=== PATIENT | male | born 1955 | race Two or more races ===

== ENCOUNTER 2017-12-15 10:10 | Inpatient (IN) | payer SELFPAY ==
[2017-12-15 11:56] VITALS: BMI 46.9
--- NOTE | 2017-12-15 14:00 | HP ---
COWS - Scale Resting Pulse: 1= [place] 81-100 Sweatin=Flushed/Facial Moisture Restless Observation: 3= Extraneous Movement Pupil Size: 2= Moderately Dilated Bone or Joint Aches: 2= Severe Diffuse Aches Runny Nose/ Eye Tearin= Runny Nose/Eyes GI Upset > 30mins: 3= Vomiting/Diarrhea Tremor Observation: 2= Slight Tremor Visible Yawning Observation: 2= >3x During Session Anxiety or Irritability: 2=Irritable/Anxious Goose Flesh Skin: 0=Smooth Skin COWS Score: 21 Admission ROS S - HPI Chief Complaint: I NEED HELP TO STOP USING HEROIN Allergies/Adverse Reactions: Allergies Allergy/AdvReac Type Severity Reaction Status Date / Time bee venom protein (honey bee) Allergy Severe Swelling Verified 12/15/17 13:59 penicillin G Allergy Severe Swelling Verified 12/15/17 13:59 History of Present Illness: THIS 62 YEARS OLD MALE WITH HEROIN DEPENDENCE,SEEKING DETOX,WITHDRAWAL SYMPTOM, LAST DETOX 2007 [facility] HYPERTENSION NON COMPLIANCE LAST MEDICATION 1 MONTH AGO MORBID OBESITY CHRONIC EDEMA BOTH LEGS WITH ULCERS FOR 1 MONTH SLEEP APNEA DEPRESSION,INSOMNIA LONGEST PERIOD OF SOBRIETY 15 YEARS Exam Limitations: No Limitations - Ebola screening Have you traveled outside of the country in the last 21 days: No (N) Have you had contact with anyone from an Ebola affected area: No Have you been sick,other than usual withdrawal symptoms: No Do you have a fever: No - Review of Systems Constitutional: Chills, Loss of Appetite, Malaise, Night Sweats, Changes in sleep, Weakness EENT: reports: Tearing, Nose Congestion Respiratory: reports: No Symptoms reported Cardiac: reports: Palpitations GI: reports: Diarrhea, Nausea, Vomiting, Abdominal cramping : reports: No Symptoms Reported Musculoskeletal: reports: Back Pain, Joint Pain, Muscle Pain, Joint Stiffness Integumentary: reports: Dryness Neuro: reports: Headache, Tremors Endocrine: reports: No Symptoms Reported Hematology: reports: No Symptoms Reported Psychiatric: reports: No Sypmtoms Reported, Judgement Intact, Mood/Affect Appropiate, Orientated x3, Anxious, Depressed Patient History - Patient Medical History Hx Anemia: No Hx Asthma: No Hx Chronic Obstructive Pulmonary Disease (COPD): No Hx Cancer: No Hx Cardiac Disorders: No Hx Congestive Heart Failure: No Hx Hypertension: Yes (NON COMPLIANCE) Hx Hypercholesterolemia: No Hx Pacemaker: No HX Cerebrovascular Accident: No Hx Seizures: No Hx Diabetes: No Hx Gastrointestinal Disorders: No Hx Liver Disease: Yes (HEPATITIS C) Hx Genitourinary Disorders: No Hx Sexually Transmitted Disorders: No Hx Renal Disease (ESRD): No Hx Thyroid Disease: No Hx Human Immunodeficiency Virus (HIV): No (LAST 2017 NEGATIVE) Hx Hepatitis C: Yes Hx Depression: No Hx Suicide Attempt: No Hx Bipolar Disorder: No Hx Schizophrenia: No Other Medical History: ANXIETY,DEPRESSION,INSOMNIA,CHRONIC EDEMA BOTH LEGS WITH STASIS ULCER, - Patient Surgical History Past Surgical History: No Hx Neurologic Surgery: No Hx Cataract Extraction: No Hx Cardiac Surgery: No Hx Lung Surgery: No Hx Breast Surgery: No Hx Breast Biopsy: No Hx Abdominal Surgery: No Hx Appendectomy: No Hx Cholecystectomy: No Hx Genitourinary Surgery: No Hx Section: No Hx Orthopedic Surgery: No Anesthesia Reaction: No - PPD History Previous Implant?: Yes Documented Results: Negative w/o proof Implanted On Prior R Admission?: No PPD to be Administered?: Yes - Smoking Cessation Smoking history: Current every day smoker Have you smoked in the past 12 months: Yes Aproximately how many cigarettes per day: 10 Hx Chewing Tobacco Use: No Initiated information on smoking cessation: Yes 'Breaking Loose' booklet given: 12/15/17 - Substance & Tx. History Hx Alcohol Use: No Hx Substance Use: Yes Substance Use Type: Heroin Hx Substance Use Treatment: Yes ([address] [place] [address]) - Substances Abused Heroin Route: Inhalation Frequency: Daily Amount used: 15 Age of first use: 19 Date of Last Use: 12/15/17 Family Disease History - Family Disease History Family Disease History: Diabetes: Grandparent, Mother, Other: Father Admission Physical Exam S - Vital Signs Vital Signs: Vital Signs - 24 hr 12/15/17 11:55 Temperature 95.6 F L Pulse Rate 92 H Respiratory 20 Rate Blood Pressure 144/89 - Physical General Appearance: Yes: Moderate Distress, Tremorous, Irritable, Sweating, Anxious HEENTM: Yes: Normal ENT Inspection, Pharynx Normal Respiratory: Yes: Within Normal Limits, Lungs Clear, No Respiratory Distress Neck: Yes: Within Normal Limits, Supple, Trachea in good position Breast: Yes: Within Normal Limits Cardiology: Yes: Within Normal Limits, Regular Rhythm, Regular Rate, S1, S2 Abdominal: Yes: Within Normal Limits, Normal Bowel Sounds, Flat, Soft Genitourinary: Yes: Within Normal Limits Back: Yes: Muscle Spasm Extremities: Yes: Within Normal Limits, Normal Range of Motion, Tremors, Other ( EDEMA BOTH LEGS CHRONIC BOTH LES WITH MULTILE SUPERFICIAL ULCERS DEMATITIS) Neurological: Yes: can marker II-XII NML intact, Alert, Motor Strength 5/5, Normal Mood /Affect Integumentary: Yes: Dry Lymphatic: Yes: Within Normal Limits - Diagnostic (1) Opioid dependence with withdrawal Current Visit: Yes Status: Acute (2) Essential hypertension Current Visit: Yes Status: Acute (3) Chronic low back pain Current Visit: Yes Status: Acute (4) Stasis leg ulcer Current Visit: Yes Status: Acute Qualifiers: Laterality: bilateral Qualified Code(s): I83.019 - Varicose veins of right lower extremity with ulcer of unspecified site; I83.029 - Varicose veins of left lower extremity with ulcer of unspecified site; L97.929 - Non-pressure chronic ulcer of unspecified part of left lower leg with unspecified severity; L97.929 - Non-pressure chronic ulcer of unspecified part of left lower leg with unspecified severity; I83.029 - Varicose veins of left lower extremity with ulcer of unspecified site; I83.029 - Varicose veins of left lower extremity with ulcer of unspecified site; L97.919 - Non-pressure chronic ulcer of unspecified part of right lower leg with unspecified severity; L97.919 - Non- pressure chronic ulcer of unspecified part of right lower leg with unspecified severity; L97.919 - Non-pressure chronic ulcer of unspecified part of right lower leg with unspecified severity; L97.919 - Non-pressure chronic ulcer of unspecified part of right lower leg with unspecified severity; L97.929 - Non- pressure chronic ulcer of unspecified part of left lower leg with unspecified severity; L97.929 - Non-pressure chronic ulcer of unspecified part of left lower leg with unspecified severity (5) Obesity Current Visit: Yes Status: Chronic Qualifiers: Obesity type: due to excess calories Obesity classification: adult class 3 (BMI >= 40) Serious obesity comorbidity presence: without serious comorbidity Body mass index: BMI 45.0-49.9 Qualified Code(s): E66.01 - Morbid (severe) obesity due to excess calories; Z68.42 - Body mass index (BMI) 45.0-49.9, adult ; Z68.42 - Body mass index (BMI) 45.0-49.9, adult; Z68.42 - Body mass index (BMI ) 45.0-49.9, adult; Z68.42 - Body mass index (BMI) 45.0-49.9, adult (6) Sleep apnea Current Visit: Yes Status: Acute Qualifiers: Sleep apnea type: unspecified type Qualified Code(s): G47.30 - Sleep apnea , unspecified (7) Nicotine dependence Current Visit: Yes Status: Acute Qualifiers: Nicotine product type: cigarettes Substance use status: uncomplicated Qualified Code(s): F17.210 - Nicotine dependence, cigarettes, uncomplicated Cleared for Admission [facility] - Detox or Rehab [facility] Level of Care: Medically Managed Detox Regimen/Protocol: Methadone [facility] Breath Alcohol Content Breath Alcohol Content: 0 Urine Drug Screen - Results Drug Screen Negative: No Urine Drug Screen Results: OPI-Opiates, OXY-Oxycodone
[2017-12-15] MEDS ORDERED: MENTHOL/PHENOL 1 EACH UD MM PRN (14:23)
[2017-12-15] MEDS ORDERED: guaiFENesin/D-METHORPHAN HB 10 ML UNIT-DOSE CUPS PO PRN (14:23)
[2017-12-15] MEDS ORDERED: hydrOXYzine PAMOATE 50 MG CAPSULE (FP) PO PRN (14:23)
[2017-12-15] MEDS ORDERED: MAG HYDROX/AL HYDROX/SIMETH 30 ML UNIT-DOSE CUP PO PRN (14:23)
[2017-12-15] MEDS ORDERED: LOPERAMIDE HCL 2 MG CAPSULE PO PRN (14:23)
[2017-12-15] MEDS ORDERED: P-EPHED 60MG/TRIPROLIDI 2.5MG TABLET PO PRN (14:23)
[2017-12-15] MEDS ORDERED: IBUPROFEN 400 MG TABLET (FP) PO PRN (14:23)
[2017-12-15] MEDS ORDERED: MAGNESIUM CITRATE 300 ML BOTTLE PO PRN (14:23)
[2017-12-15] MEDS ORDERED: MAGNESIUM HYDROX 2400MG/30ML ORAL SUSPENSION 30 ML CUP PO PRN (14:23)
[2017-12-15] MEDS ORDERED: ACETAMINOPHEN 325 MG TABLET (FP) PO PRN (14:23)
[2017-12-15] MEDS ORDERED: NICOTINE POLACRILEX 2 MG GUM BUC PRN (14:23)
[2017-12-15] MEDS ORDERED: PATIENT'S OWN MEDICATION (NON-FORMULARY) (Amlodipine/Atorvastatin [Amlodipine-Atorvast 10- PO SCH (14:30)
[2017-12-15] MEDS ORDERED: METHADONE HCL 10 MG TABLET (FOR DETOX USE ONLY) PO ONE ×2 (15:20→23:00)
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
[2017-12-15] MEDS: HYDROCHLOROTHIAZIDE 25 MG TABLET (FP) PO SCH (16:14)
[2017-12-15] MEDS: amLODIPine BESYLATE 10 MG TABLET (FP) PO SCH (16:19)
[2017-12-15] MEDS: NICOTINE 21 MG/24 HOURS TOPICAL PATCH TD SCH (16:19)
[2017-12-15 20:14] LABS: URINE APPEARANCE CLEAR; URINE BLOOD 1+ (NEGATIVE); URINE COLOR AMBER; URINE GLUCOSE (UA) NEGATIVE (NEGATIVE); URINE KETONE NEGATIVE (NEGATIVE); URINE LEUK ESTERASE NEGATIVE (NEGATIVE); URINE NITRITE NEGATIVE (NEGATIVE); URINE UROBILINOGEN 4.0 E.U/dl mg/dL (0.2-1.0)
[2017-12-15 20:15] LABS: URINE PROTEIN 3+ (NEGATIVE)
[2017-12-15 21:02] LABS: EPI CELLS RARE /HPF (FEW); GRANULAR CASTS 1 /lpf; URINE BACTERIA RARE /hpf (NONE SEEN); URINE HYALINE CAST 11 /lpf; URINE MUCUS MANY
[2017-12-15] MEDS: MELATONIN 5 MG TABLETS PO PRN (22:45)
[2017-12-15] MEDS: THIAMINE HCL 100 MG TABLET (FP) PO SCH (22:45)
[2017-12-15] MEDS: SILVER SULFADIAZINE 1% TOP CREAM 50 GM JAR TP SCH (22:46)
[2017-12-15] MEDS: diazePAM 5 MG TABLET PO PRN (22:46)
[2017-12-15] MEDS: ATORVASTATIN CA 10 MG TABLET (FP) PO SCH (22:46)
[2017-12-16] MEDS: diazePAM 5 MG TABLET PO PRN ×2 (07:00→22:54)
[2017-12-16] MEDS ORDERED: METHADONE HCL 10 MG TABLET (FOR DETOX USE ONLY) PO ONE (10:00)
[2017-12-16 10:33] LABS: HEMATOCRIT 42.5 % (35.4-49); HEMOGLOBIN 13.9 GM/dL (11.7-16.9); MCH 26.8 pg (25.7-33.7); MCHC 32.7 g/dl (32.0-35.9); MEAN CELL VOLUME 82.1 fl (80-96); MEAN PLT VOLUME 9.1 fl (7.5-11.1); RBC 5.17 M/mm3 (4.00-5.60); RDW 17.1 % (11.9-15.9); WHITE BLOOD COUNT 4.9 K/mm3 (4.0-10.0)
[2017-12-16 10:44] LABS: CHLORIDE 106 mmol/L (98-107); POTASSIUM 4.6 mmol/L (3.5-5.1); SODIUM 140 mmol/L (136-145)
[2017-12-16 10:51] LABS: ALBUMIN 3.7 g/dl (3.4-5.0); ALK PHOS 79 U/L (45-117); ANION GAP 6 (8-16); BILIRUBIN,TOTAL 1.5 mg/dL (0.2-1.0); BLOOD UREA NITROGEN 16 mg/dL (7-18); CO2 28 mmol/L (21-32); CREATININE 1.4 mg/dL (0.7-1.3); GLUCOSE,RANDOM 91 mg/dL (74-106); SGOT/AST 34 U/L (15-37); SGPT/ALT 18 U/L (12-78); TOT PROT 7.1 g/dl (6.4-8.2)
[2017-12-16] MEDS: NICOTINE 21 MG/24 HOURS TOPICAL PATCH TD SCH (11:35)
[2017-12-16] MEDS: SILVER SULFADIAZINE 1% TOP CREAM 50 GM JAR TP SCH ×2 (11:35→22:52)
[2017-12-16] MEDS: HYDROCHLOROTHIAZIDE 25 MG TABLET (FP) PO SCH (11:35)
[2017-12-16] MEDS: amLODIPine BESYLATE 10 MG TABLET (FP) PO SCH (11:35)
[2017-12-16] MEDS: PRENATAL VITAMINS W/ FOLIC ACID TABLET (FP) PO SCH (11:35)
[2017-12-16 13:44] LABS: PLATELET COUNT 110 K/MM3 (134-434)
[2017-12-16 14:13] LABS: SICKLE CELL SCREEN NEGATIVE (NEGATIVE)
--- NOTE | 2017-12-16 15:43 | PN ---
S COWS - Scale Resting Pulse: 1= [place] 81-100 Sweatin= Chills/Flushing Restless Observation: 0= Sits Still Pupil Size: 0= Normal to Room Light Bone or Joint Aches: 4=Acute Joint/Muscle Pain Runny Nose/ Eye Tearin= None GI Upset > 30mins: 1= Stomach Cramp Tremor Observation of Outstretched Hands: 0= None Yawning Observation: 2= >3x During Session Anxiety or Irritability: 2=Irritable/Anxious Goose Flesh Skin: 3=Piloerection COWS Score: 14 S Progress Note (SOAP) Subjective: Stomach Cramping, Fatigue, Body Aches. Objective: PATIENT A & O X 3. NO ACUTE DISTRESS. PATIENT DENIES CHEST PAIN. 12/16/17 15:40 Vital Signs Temperature 95.8 F L 12/16/17 14:58 Pulse Rate 82 12/16/17 14:58 Respiratory Rate 20 12/16/17 14:58 Blood Pressure 136/84 12/16/17 14:58 O2 Sat by Pulse Oximetry (%) Laboratory Tests 12/15/17 12/16/17 12/16/17 18:40 06:20 06:20 WBC 4.9 RBC 5.17 Hgb 13.9 Hct 42.5 MCV 82.1 MCH 26.8 MCHC 32.7 RDW 17.1 H Plt Count 110 L MPV 9.1 Manual Slide Review No clumping seen Platelet Comment Sl.dec Sickle Cell Screen Negative Sodium 140 Potassium 4.6 Chloride 106 Carbon Dioxide 28 Anion Gap 6 L BUN 16 Creatinine 1.4 H Creat Clearance w eGFR 51.18 Random Glucose 91 Calcium 9.0 Total Bilirubin 1.5 H AST 34 ALT 18 Alkaline Phosphatase 79 Total Protein 7.1 Albumin 3.7 Urine Color Mar Urine Appearance Clear Urine pH 5.0 Ur Specific [place] 1.028 Urine Protein 3+ H Urine Glucose (UA) Negative Urine Ketones Negative Urine Blood 1+ H Urine Nitrite Negative Urine Bilirubin 2.0 Urine Urobilinogen 4.0 e.u/dl Ur Leukocyte Esterase Negative Urine WBC (Auto) 2 Urine RBC (Auto) 12 Ur Epithelial Cells Rare Urine Bacteria Rare Hyaline Casts 11 Granular Casts 1 Urine Mucus Many RPR Titer 12/16/17 06:20 WBC RBC Hgb Hct MCV MCH MCHC RDW Plt Count MPV Manual Slide Review Platelet Comment Sickle Cell Screen Sodium Potassium Chloride Carbon Dioxide Anion Gap BUN Creatinine Creat Clearance w eGFR Random Glucose Calcium Total Bilirubin AST ALT Alkaline Phosphatase Total Protein Albumin Urine Color Urine Appearance Urine pH Ur Specific [place] Urine Protein Urine Glucose (UA) Urine Ketones Urine Blood Urine Nitrite Urine Bilirubin Urine Urobilinogen Ur Leukocyte Esterase Urine WBC (Auto) Urine RBC (Auto) Ur Epithelial Cells Urine Bacteria Hyaline Casts Granular Casts Urine Mucus RPR Titer Nonreactive LABS NOTED. Assessment: 12/16/17 15:40 WITHDRAWAL SYMPTOMS. Plan: CONTINUE DETOX. D/C IBUPROFEN AND -MAGNESIUM-CONTAINING MEDS.
[2017-12-16] MEDS ORDERED: ONDANSETRON *ODT* 4 MG TABLET SL ONE (22:00)
[2017-12-16] MEDS: THIAMINE HCL 100 MG TABLET (FP) PO SCH (22:51)
[2017-12-16] MEDS: ATORVASTATIN CA 10 MG TABLET (FP) PO SCH (22:51)
[2017-12-16] MEDS: MELATONIN 5 MG TABLETS PO PRN (22:53)
[2017-12-17] MEDS: diazePAM 5 MG TABLET PO PRN ×2 (06:18→21:54)
--- NOTE | 2017-12-17 06:48 | PN ---
[facility] Progress Note Note: Patient complained of nausea. Denies vomiting at this time. Ondansetron 4mg subligual given
[2017-12-17] MEDS ORDERED: METHADONE HCL 5 MG TABLET (FOR DETOX USE ONLY) PO ONE (10:00)
[2017-12-17] MEDS: PRENATAL VITAMINS W/ FOLIC ACID TABLET (FP) PO SCH (10:50)
[2017-12-17] MEDS: SILVER SULFADIAZINE 1% TOP CREAM 50 GM JAR TP SCH ×2 (10:50→23:07)
[2017-12-17] MEDS: NICOTINE 21 MG/24 HOURS TOPICAL PATCH TD SCH (10:50)
[2017-12-17] MEDS: amLODIPine BESYLATE 10 MG TABLET (FP) PO SCH (10:50)
[2017-12-17] MEDS: HYDROCHLOROTHIAZIDE 25 MG TABLET (FP) PO SCH (10:50)
[2017-12-17] MEDS ORDERED: TRIMETHOBENZAMIDE HCL 200MG/2ML INJ IM PRN (10:56)
[2017-12-17] MEDS ORDERED: TRIMETHOBENZAMIDE HCL 200MG/2ML INJ IM ONE (10:56)
[2017-12-17] MEDS ORDERED: TRIMETHOBENZAMIDE HCL 300 MG CAPSULE PO PRN (10:57)
--- NOTE | 2017-12-17 11:05 | PN ---
S COWS - Scale Resting Pulse: 1= [place] 81-100 Sweatin= Chills/Flushing Restless Observation: 1= Difficult to Sit Still Pupil Size: 0= Normal to Room Light Bone or Joint Aches: 2= Severe Diffuse Aches Runny Nose/ Eye Tearin= Nasal Congestion GI Upset > 30mins: 2= Nausea/Diarrhea Tremor Observation of Outstretched Hands: 2= Slight Tremor Visible Yawning Observation: 1= 1-2x During Session Anxiety or Irritability: 2=Irritable/Anxious Goose Flesh Skin: 3=Piloerection COWS Score: 16 S Progress Note (SOAP) Subjective: nausea/vomiting sweats chills interrupted sleep Objective: 12/17/17 11:04 Vital Signs Temperature 95.4 F L 12/17/17 11:00 Pulse Rate 89 12/17/17 11:00 Respiratory Rate 20 12/17/17 11:00 Blood Pressure 156/93 12/17/17 11:00 O2 Sat by Pulse Oximetry (%) Laboratory Tests 12/15/17 12/16/17 12/16/17 18:40 06:20 06:20 WBC 4.9 RBC 5.17 Hgb 13.9 Hct 42.5 MCV 82.1 MCH 26.8 MCHC 32.7 RDW 17.1 H Plt Count 110 L MPV 9.1 Manual Slide Review No clumping seen Platelet Comment Sl.dec Sickle Cell Screen Negative Sodium 140 Potassium 4.6 Chloride 106 Carbon Dioxide 28 Anion Gap 6 L BUN 16 Creatinine 1.4 H Creat Clearance w eGFR 51.18 Random Glucose 91 Calcium 9.0 Total Bilirubin 1.5 H AST 34 ALT 18 Alkaline Phosphatase 79 Total Protein 7.1 Albumin 3.7 Urine Color Mar Urine Appearance Clear Urine pH 5.0 Ur Specific [place] 1.028 Urine Protein 3+ H Urine Glucose (UA) Negative Urine Ketones Negative Urine Blood 1+ H Urine Nitrite Negative Urine Bilirubin 2.0 Urine Urobilinogen 4.0 e.u/dl Ur Leukocyte Esterase Negative Urine WBC (Auto) 2 Urine RBC (Auto) 12 Ur Epithelial Cells Rare Urine Bacteria Rare Hyaline Casts 11 Granular Casts 1 Urine Mucus Many RPR Titer 12/16/17 06:20 WBC RBC Hgb Hct MCV MCH MCHC RDW Plt Count MPV Manual Slide Review Platelet Comment Sickle Cell Screen Sodium Potassium Chloride Carbon Dioxide Anion Gap BUN Creatinine Creat Clearance w eGFR Random Glucose Calcium Total Bilirubin AST ALT Alkaline Phosphatase Total Protein Albumin Urine Color Urine Appearance Urine pH Ur Specific [place] Urine Protein Urine Glucose (UA) Urine Ketones Urine Blood Urine Nitrite Urine Bilirubin Urine Urobilinogen Ur Leukocyte Esterase Urine WBC (Auto) Urine RBC (Auto) Ur Epithelial Cells Urine Bacteria Hyaline Casts Granular Casts Urine Mucus RPR Titer Nonreactive aaox3 ambulating no acute distress Assessment: 12/17/17 11:04 withdrawal sx Plan: continue detox increase fluids tigan IM/PO prn
[2017-12-17] MEDS: ATORVASTATIN CA 10 MG TABLET (FP) PO SCH (21:54)
[2017-12-17] MEDS: THIAMINE HCL 100 MG TABLET (FP) PO SCH (21:54)
[2017-12-17] MEDS ORDERED: amLODIPine BESYLATE 10 MG TABLET (FP) PO SCH (22:00)
[2017-12-17] MEDS: LISINOPRIL 5 MG TABLET (FP) PO SCH (22:59)
[2017-12-18] MEDS ORDERED: METHADONE HCL 5 MG TABLET (FOR DETOX USE ONLY) PO ONE (10:00)
[2017-12-18] MEDS: diazePAM 5 MG TABLET PO PRN (12:15)
[2017-12-18] MEDS: HYDROCHLOROTHIAZIDE 25 MG TABLET (FP) PO SCH (12:25)
[2017-12-18] MEDS: PRENATAL VITAMINS W/ FOLIC ACID TABLET (FP) PO SCH (12:28)
[2017-12-18] MEDS: NICOTINE 21 MG/24 HOURS TOPICAL PATCH TD SCH (12:32)
[2017-12-18] MEDS: SILVER SULFADIAZINE 1% TOP CREAM 50 GM JAR TP SCH ×2 (12:33→21:47)
--- NOTE | 2017-12-18 12:42 | EKG ---
Test Reason : Blood Pressure : / mmHG Vent. Rate : 080 BPM Atrial Rate : 080 BPM P-R Int : 144 ms QRS Dur : 084 ms QT Int : 400 ms P-R-T Axes : 040 -16 -16 degrees QTc Int : 461 ms NORMAL SINUS RHYTHM NONSPECIFIC T WAVE ABNORMALITY PROLONGED QT ABNORMAL ECG WHEN COMPARED WITH ECG OF 15-DEC-2017 17:03, NO SIGNIFICANT CHANGE WAS FOUND Confirmed by DOMI PADILLA MD ([id number]) on 12/18/2017 12:42:01 PM Referred By: Confirmed By:DOMI PADILLA MD
--- NOTE | 2017-12-18 12:44 | EKG ---
Test Reason : Blood Pressure : / mmHG Vent. Rate : 085 BPM Atrial Rate : 085 BPM P-R Int : 142 ms QRS Dur : 086 ms QT Int : 372 ms P-R-T Axes : 040 011 217 degrees QTc Int : 442 ms NORMAL SINUS RHYTHM NONSPECIFIC T WAVE ABNORMALITY ABNORMAL ECG NO PREVIOUS ECGS AVAILABLE Confirmed by DOMI PADILLA MD ([id number]) on 12/18/2017 12:43:28 PM Referred By: Confirmed By:DOMI PADILLA MD
--- NOTE | 2017-12-18 13:34 | PN ---
[facility] Progress Note (SOAP) Subjective: Fatigue, Body Aches, Interrupted Sleep, Vomiting. Objective: PATIENT A & O X 3. NO ACUTE DISTRESS. 12/18/17 13:29 Vital Signs Temperature 96.3 F L 12/18/17 09:24 Pulse Rate 91 H 12/18/17 09:24 Respiratory Rate 18 12/18/17 09:24 Blood Pressure 166/107 12/18/17 09:24 O2 Sat by Pulse Oximetry (%) Laboratory Tests 12/15/17 12/16/17 12/16/17 18:40 06:20 06:20 WBC 4.9 RBC 5.17 Hgb 13.9 Hct 42.5 MCV 82.1 MCH 26.8 MCHC 32.7 RDW 17.1 H Plt Count 110 L MPV 9.1 Manual Slide Review No clumping seen Platelet Comment Sl.dec Sickle Cell Screen Negative Sodium 140 Potassium 4.6 Chloride 106 Carbon Dioxide 28 Anion Gap 6 L BUN 16 Creatinine 1.4 H Creat Clearance w eGFR 51.18 Random Glucose 91 Calcium 9.0 Total Bilirubin 1.5 H AST 34 ALT 18 Alkaline Phosphatase 79 Total Protein 7.1 Albumin 3.7 Urine Color Mar Urine Appearance Clear Urine pH 5.0 Ur Specific [place] 1.028 Urine Protein 3+ H Urine Glucose (UA) Negative Urine Ketones Negative Urine Blood 1+ H Urine Nitrite Negative Urine Bilirubin 2.0 Urine Urobilinogen 4.0 e.u/dl Ur Leukocyte Esterase Negative Urine WBC (Auto) 2 Urine RBC (Auto) 12 Ur Epithelial Cells Rare Urine Bacteria Rare Hyaline Casts 11 Granular Casts 1 Urine Mucus Many RPR Titer HIV 1&2 Antibody Screen HIV P24 Antigen 12/16/17 12/17/17 06:20 08:00 WBC RBC Hgb Hct MCV MCH MCHC RDW Plt Count MPV Manual Slide Review Platelet Comment Sickle Cell Screen Sodium Potassium Chloride Carbon Dioxide Anion Gap BUN Creatinine Creat Clearance w eGFR Random Glucose Calcium Total Bilirubin AST ALT Alkaline Phosphatase Total Protein Albumin Urine Color Urine Appearance Urine pH Ur Specific [place] Urine Protein Urine Glucose (UA) Urine Ketones Urine Blood Urine Nitrite Urine Bilirubin Urine Urobilinogen Ur Leukocyte Esterase Urine WBC (Auto) Urine RBC (Auto) Ur Epithelial Cells Urine Bacteria Hyaline Casts Granular Casts Urine Mucus RPR Titer Nonreactive HIV 1&2 Antibody Screen Negative HIV P24 Antigen Negative LABS NOTED. Assessment: 04/16/18 13:30 WITHDRAWAL SYMPTOMS. Plan: CONTINUE DETOX. AMLODIPINE, 10 MG PO DAILY FOR ELEVATED BP (PATIENT WAS PRESCRIBED PRIOR TO DETOX ADMISSION).
[2017-12-18] MEDS: amLODIPine BESYLATE 10 MG TABLET (FP) PO SCH (15:01)
--- NOTE | 2017-12-18 18:28 | PN ---
S Progress Note Note: Vital Signs Temperature 97 F L 12/18/17 14:01 Pulse Rate 90 12/18/17 14:01 Respiratory Rate 20 12/18/17 14:01 Blood Pressure 166/103 12/18/17 14:01 O2 Sat by Pulse Oximetry (%) Patient with symptomatic elevated BP one time dose clonidine 0.1mg STAT Increase fluids Continue to monitor
[2017-12-18] MEDS ORDERED: cloNIDine HCL 0.1 MG TABLET PO ONE (19:00)
[2017-12-18] MEDS: LISINOPRIL 5 MG TABLET (FP) PO SCH (22:25)
[2017-12-18] MEDS: THIAMINE HCL 100 MG TABLET (FP) PO SCH (22:25)
[2017-12-18] MEDS: ATORVASTATIN CA 10 MG TABLET (FP) PO SCH (22:25)
[2017-12-18] MEDS: MELATONIN 5 MG TABLETS PO PRN (22:29)
[2017-12-19] MEDS ORDERED: ONDANSETRON *ODT* 4 MG TABLET SL PRN (06:42)
[2017-12-19] MEDS ORDERED: METHADONE HCL 10 MG TABLET (FOR DETOX USE ONLY) PO ONE (10:00)
[2017-12-19] MEDS: NICOTINE 21 MG/24 HOURS TOPICAL PATCH TD SCH (10:37)
[2017-12-19] MEDS: SILVER SULFADIAZINE 1% TOP CREAM 50 GM JAR TP SCH ×2 (10:37→23:17)
[2017-12-19] MEDS: amLODIPine BESYLATE 10 MG TABLET (FP) PO SCH (10:38)
[2017-12-19] MEDS: PRENATAL VITAMINS W/ FOLIC ACID TABLET (FP) PO SCH (10:38)
[2017-12-19] MEDS: HYDROCHLOROTHIAZIDE 25 MG TABLET (FP) PO SCH (10:38)
--- NOTE | 2017-12-19 14:04 | PN ---
[facility] Progress Note (SOAP) Subjective: Fatigue, Vomiting, Stomach Cramping, Body Aches. Objective: PATIENT A & O X 3. NO ACUTE DISTRESS. 12/19/17 13:58 Vital Signs Temperature 96.3 F L 12/19/17 09:06 Pulse Rate 86 12/19/17 09:06 Respiratory Rate 18 12/19/17 09:06 Blood Pressure 156/101 12/19/17 09:06 O2 Sat by Pulse Oximetry (%) Laboratory Tests 12/15/17 12/16/17 12/16/17 18:40 06:20 06:20 WBC 4.9 RBC 5.17 Hgb 13.9 Hct 42.5 MCV 82.1 MCH 26.8 MCHC 32.7 RDW 17.1 H Plt Count 110 L MPV 9.1 Manual Slide Review No clumping seen Platelet Comment Sl.dec Sickle Cell Screen Negative Sodium 140 Potassium 4.6 Chloride 106 Carbon Dioxide 28 Anion Gap 6 L BUN 16 Creatinine 1.4 H Creat Clearance w eGFR 51.18 Random Glucose 91 Calcium 9.0 Total Bilirubin 1.5 H AST 34 ALT 18 Alkaline Phosphatase 79 Total Protein 7.1 Albumin 3.7 Urine Color Mar Urine Appearance Clear Urine pH 5.0 Ur Specific [place] 1.028 Urine Protein 3+ H Urine Glucose (UA) Negative Urine Ketones Negative Urine Blood 1+ H Urine Nitrite Negative Urine Bilirubin 2.0 Urine Urobilinogen 4.0 e.u/dl Ur Leukocyte Esterase Negative Urine WBC (Auto) 2 Urine RBC (Auto) 12 Ur Epithelial Cells Rare Urine Bacteria Rare Hyaline Casts 11 Granular Casts 1 Urine Mucus Many RPR Titer HIV 1&2 Antibody Screen HIV P24 Antigen 12/16/17 12/17/17 06:20 08:00 WBC RBC Hgb Hct MCV MCH MCHC RDW Plt Count MPV Manual Slide Review Platelet Comment Sickle Cell Screen Sodium Potassium Chloride Carbon Dioxide Anion Gap BUN Creatinine Creat Clearance w eGFR Random Glucose Calcium Total Bilirubin AST ALT Alkaline Phosphatase Total Protein Albumin Urine Color Urine Appearance Urine pH Ur Specific [place] Urine Protein Urine Glucose (UA) Urine Ketones Urine Blood Urine Nitrite Urine Bilirubin Urine Urobilinogen Ur Leukocyte Esterase Urine WBC (Auto) Urine RBC (Auto) Ur Epithelial Cells Urine Bacteria Hyaline Casts Granular Casts Urine Mucus RPR Titer Nonreactive HIV 1&2 Antibody Screen Negative HIV P24 Antigen Negative LABS NOTED. Assessment: 12/19/17 13:59 WITHDRAWAL SYMPTOMS. Plan: CONTINUE DETOX. CLONIDINE, 0.2 MG PO X 1 FOR DETOX SYMPTOMS AND FOR ELEVATED BP. PATIENT HAS DISPLAYED VERY LITTLE AMBULATION DURING THIS DETOX ADMISSION. PATIENT ENCOURAGED TO ATTEMPT AMBULATION TOLERATED HE PREPARES FOR DISCHARGE TOMORROW. PATIENT ALSO ADVISED TO FOLLOW-UP WITH [employer] DR. WEINSTEIN ([place], [place] AFTER DISCHARGE FROM DETOX FOR MEDICAL ASSESSMENT, FOR WOUNDS ON FEET, FOR HISTORY OF HYPERTENSION, AND FOR ABNORMAL RENAL VALUES DRAWN WHILE ADMITTED FOR DETOX.
[2017-12-19] MEDS ORDERED: cloNIDine HCL 0.1 MG TABLET PO ONE (15:45)
[2017-12-19] MEDS: MELATONIN 5 MG TABLETS PO PRN (23:12)
[2017-12-19] MEDS: ATORVASTATIN CA 10 MG TABLET (FP) PO SCH (23:12)
[2017-12-19] MEDS: THIAMINE HCL 100 MG TABLET (FP) PO SCH (23:12)
[2017-12-19] MEDS: LISINOPRIL 5 MG TABLET (FP) PO SCH (23:12)
[2017-12-20] MEDS ORDERED: METHADONE HCL 5 MG TABLET (FOR DETOX USE ONLY) PO ONE (06:00)
[2017-12-20 09:05] VITALS: BP 125/78; PULSE 78; TEMP 96.3
--- NOTE | 2017-12-20 14:55 | PN ---
[facility] Progress Note (SOAP) Subjective: Patient reports that he feels well overall. Objective: PATIENT A & O X 3, OBSERVED AMBULATING ON UNIT. NO ACUTE DISTRESS. 12/20/17 15:01 Vital Signs Temperature 96.3 F L 12/20/17 09:05 Pulse Rate 78 12/20/17 09:05 Respiratory Rate 18 12/20/17 09:05 Blood Pressure 125/78 12/20/17 09:05 O2 Sat by Pulse Oximetry (%) Laboratory Tests 12/15/17 12/16/17 12/16/17 18:40 06:20 06:20 WBC 4.9 RBC 5.17 Hgb 13.9 Hct 42.5 MCV 82.1 MCH 26.8 MCHC 32.7 RDW 17.1 H Plt Count 110 L MPV 9.1 Manual Slide Review No clumping seen Platelet Comment Sl.dec Sickle Cell Screen Negative Sodium 140 Potassium 4.6 Chloride 106 Carbon Dioxide 28 Anion Gap 6 L BUN 16 Creatinine 1.4 H Creat Clearance w eGFR 51.18 Random Glucose 91 Calcium 9.0 Total Bilirubin 1.5 H AST 34 ALT 18 Alkaline Phosphatase 79 Total Protein 7.1 Albumin 3.7 Urine Color Mar Urine Appearance Clear Urine pH 5.0 Ur Specific [place] 1.028 Urine Protein 3+ H Urine Glucose (UA) Negative Urine Ketones Negative Urine Blood 1+ H Urine Nitrite Negative Urine Bilirubin 2.0 Urine Urobilinogen 4.0 e.u/dl Ur Leukocyte Esterase Negative Urine WBC (Auto) 2 Urine RBC (Auto) 12 Ur Epithelial Cells Rare Urine Bacteria Rare Hyaline Casts 11 Granular Casts 1 Urine Mucus Many RPR Titer HIV 1&2 Antibody Screen HIV P24 Antigen 12/16/17 12/17/17 06:20 08:00 WBC RBC Hgb Hct MCV MCH MCHC RDW Plt Count MPV Manual Slide Review Platelet Comment Sickle Cell Screen Sodium Potassium Chloride Carbon Dioxide Anion Gap BUN Creatinine Creat Clearance w eGFR Random Glucose Calcium Total Bilirubin AST ALT Alkaline Phosphatase Total Protein Albumin Urine Color Urine Appearance Urine pH Ur Specific [place] Urine Protein Urine Glucose (UA) Urine Ketones Urine Blood Urine Nitrite Urine Bilirubin Urine Urobilinogen Ur Leukocyte Esterase Urine WBC (Auto) Urine RBC (Auto) Ur Epithelial Cells Urine Bacteria Hyaline Casts Granular Casts Urine Mucus RPR Titer Nonreactive HIV 1&2 Antibody Screen Negative HIV P24 Antigen Negative LABS NOTED. Assessment: 12/20/17 15:02 COMPLETION OF DETOX REGIMEN. Plan: PATIENT SCHEDULED FOR DISCHARGE FROM DETOX UNIT TODAY.
--- NOTE | 2017-12-20 15:07 | DS ---
[facility] Detox Discharge Summary Admission Date: 12/15/17 Discharge Date: 12/20/17 - History Present History: Opioid Dependence Additional Comments: PATIENT GOING HOME TO RETURN TO WORK. PATIENT ADVISED TO CONSIDER LOCAL 12-STEP / NA OUTPATIENT SUPPORT GROUPS FOR AFTERCARE. PATIENT ALSO ADVISED TO FOLLOW-UP WITH STAFF WRITER DR. WEINSTEIN ([place] AFTER DISCHARGE FROM DETOX FOR GENERAL MEDICAL ASSESSMENT, FOR HISTORY OF HTN, FOR STASIS ULCERS AFFECTING LEGS AND FEET, AND FOR ABNORMAL RENAL LAB VALUES WHILE ADMITTED FOR DETOX. PATIENT WAS DISCHARGED FROM DETOX UNIT IN STABLE MEDICAL CONDITION. Pertinent Past History: Nicotine Dependence, HTN, Stasis Ulcers of Legs/Feet, Hep C, Chronic Low Back Pain, Sleep Apnea, Depression, Insomnia, Anxiety. - Physical Exam Results Vital Signs: Vital Signs Temperature 96.3 F L 12/20/17 09:05 Pulse Rate 78 12/20/17 09:05 Respiratory Rate 18 12/20/17 09:05 Blood Pressure 125/78 12/20/17 09:05 O2 Sat by Pulse Oximetry (%) Pertinent Admission Physical Exam Findings: WITHDRAWAL SYMPTOMS. Laboratory Tests 12/15/17 12/16/17 12/16/17 18:40 06:20 06:20 WBC 4.9 RBC 5.17 Hgb 13.9 Hct 42.5 MCV 82.1 MCH 26.8 MCHC 32.7 RDW 17.1 H Plt Count 110 L MPV 9.1 Manual Slide Review No clumping seen Platelet Comment Sl.dec Sickle Cell Screen Negative Sodium 140 Potassium 4.6 Chloride 106 Carbon Dioxide 28 Anion Gap 6 L BUN 16 Creatinine 1.4 H Creat Clearance w eGFR 51.18 Random Glucose 91 Calcium 9.0 Total Bilirubin 1.5 H AST 34 ALT 18 Alkaline Phosphatase 79 Total Protein 7.1 Albumin 3.7 Urine Color Mar Urine Appearance Clear Urine pH 5.0 Ur Specific [place] 1.028 Urine Protein 3+ H Urine Glucose (UA) Negative Urine Ketones Negative Urine Blood 1+ H Urine Nitrite Negative Urine Bilirubin 2.0 Urine Urobilinogen 4.0 e.u/dl Ur Leukocyte Esterase Negative Urine WBC (Auto) 2 Urine RBC (Auto) 12 Ur Epithelial Cells Rare Urine Bacteria Rare Hyaline Casts 11 Granular Casts 1 Urine Mucus Many RPR Titer HIV 1&2 Antibody Screen HIV P24 Antigen 12/16/17 12/17/17 06:20 08:00 WBC RBC Hgb Hct MCV MCH MCHC RDW Plt Count MPV Manual Slide Review Platelet Comment Sickle Cell Screen Sodium Potassium Chloride Carbon Dioxide Anion Gap BUN Creatinine Creat Clearance w eGFR Random Glucose Calcium Total Bilirubin AST ALT Alkaline Phosphatase Total Protein Albumin Urine Color Urine Appearance Urine pH Ur Specific [place] Urine Protein Urine Glucose (UA) Urine Ketones Urine Blood Urine Nitrite Urine Bilirubin Urine Urobilinogen Ur Leukocyte Esterase Urine WBC (Auto) Urine RBC (Auto) Ur Epithelial Cells Urine Bacteria Hyaline Casts Granular Casts Urine Mucus RPR Titer Nonreactive HIV 1&2 Antibody Screen Negative HIV P24 Antigen Negative LABS NOTED. - Treatment Hospital Course: Detox Protocol Followed, Detoxed Safely, Responded well, Discharged Condition Good Patient has Accepted a Rehab Referral to: PT GOING HOME, ADVISED TO CONSIDER LOCAL 12-STEP/NA OT SUPPORT GROUPS. - Medication Discharge Medications: Ambulatory Orders Amlodipine/Atorvastatin [Amlodipine-Atorvast 10-10 mg] 10 mg PO DAILY 12/15/17 Amlodipine Besylate 10 mg PO DAILY 30 Days #30 tablet 12/19/17 Hydrochlorothiazide 25 mg PO DAILY 30 Days #30 tablet 12/19/17 Silver Sulfadiazine [Silvadene] 20 gm TP BID #1 tube 12/20/17 - Diagnosis (1) Essential hypertension Status: Acute (2) Insomnia secondary to depression with anxiety Status: Acute (3) Nicotine dependence Status: Acute Qualifiers: Nicotine product type: cigarettes Substance use status: uncomplicated Qualified Code(s): F17.210 - Nicotine dependence, cigarettes, uncomplicated (4) Opioid dependence with withdrawal Status: Acute (5) Sleep apnea Status: Acute Qualifiers: Sleep apnea type: unspecified type Qualified Code(s): G47.30 - Sleep apnea , unspecified (6) Stasis leg ulcer Status: Acute Qualifiers: Laterality: bilateral Qualified Code(s): I83.019 - Varicose veins of right lower extremity with ulcer of unspecified site; I83.029 - Varicose veins of left lower extremity with ulcer of unspecified site; I83.029 - Varicose veins of left lower extremity with ulcer of unspecified site; I83.029 - Varicose veins of left lower extremity with ulcer of unspecified site; L97.919 - Non- pressure chronic ulcer of unspecified part of right lower leg with unspecified severity; L97.919 - Non-pressure chronic ulcer of unspecified part of right lower leg with unspecified severity; L97.919 - Non-pressure chronic ulcer of unspecified part of right lower leg with unspecified severity; L97.919 - Non- pressure chronic ulcer of unspecified part of right lower leg with unspecified severity; L97.929 - Non-pressure chronic ulcer of unspecified part of left lower leg with unspecified severity; L97.929 - Non-pressure chronic ulcer of unspecified part of left lower leg with unspecified severity; L97.929 - Non- pressure chronic ulcer of unspecified part of left lower leg with unspecified severity; L97.929 - Non-pressure chronic ulcer of unspecified part of left lower leg with unspecified severity (7) Chronic low back pain Status: Acute Qualifiers: Back pain laterality: unspecified Sciatica presence: unspecified whether sciatica present Qualified Code(s): M54.5 - Low back pain; G89.29 - Other chronic pain; G89.29 - Other chronic pain (8) Obesity Status: Chronic Qualifiers: Obesity type: due to excess calories Obesity classification: adult class 3 (BMI >= 40) Serious obesity comorbidity presence: without serious comorbidity Body mass index: BMI 45.0-49.9 Qualified Code(s): E66.01 - Morbid (severe) obesity due to excess calories; Z68.42 - Body mass index (BMI) 45.0-49.9, adult ; Z68.42 - Body mass index (BMI) 45.0-49.9, adult; Z68.42 - Body mass index (BMI ) 45.0-49.9, adult; Z68.42 - Body mass index (BMI) 45.0-49.9, adult (9) Substance induced mood disorder Status: Acute - AMA Did Patient Leave Against Medical Advice: No
== END 2017-12-20 09:53 | disposition home or self-care (01) | DRG 773 ==
LOC: YASAS 10:10 → Y3N 13:42
PROVIDERS: ADMIT Internal Medicine; ATTEND Internal Medicine
PROC: HZ2ZZZZ Detoxification Services for Substance Abuse Treatment (ICD-10-PCS; principal; 2017-12-15)
DX: F11.23 Opioid dependence with withdrawal (principal); F17.210 Nicotine dependence, cigarettes, uncomplicated; F19.24 Other psychoactive substance dependence with psychoactive substance-induced mood disorder; F51.05 Insomnia due to other mental disorder; B18.2 Chronic viral hepatitis C; G47.30 Sleep apnea, unspecified; L97.929 Non-pressure chronic ulcer of unspecified part of left lower leg with unspecified severity; L97.919 Non-pressure chronic ulcer of unspecified part of right lower leg with unspecified severity; M54.5 Low back pain; G89.29 Other chronic pain; E66.01 Morbid (severe) obesity due to excess calories; Z68.42 Body mass index [BMI] 45.0-49.9, adult
CPT/HCPCS: 36415; 80053; 81003; 81015; 85027; 85660; 86593; 87389; 93005; 93010; J0735; Q0162

== ENCOUNTER 2018-07-17 10:51 | Inpatient (IN) | payer OTHER ==
[2018-07-17 11:45] VITALS: BMI 44.3
--- NOTE | 2018-07-17 13:52 | HP ---
COWS - Scale Resting Pulse: 2= DC 101-120 Sweatin= No chills or Flushing Restless Observation: 0= Sits Still Pupil Size: 0= Normal to Room Light Bone or Joint Aches: 2= Severe Diffuse Aches Runny Nose/ Eye Tearin= Runny Nose/Eyes GI Upset > 30mins: 0= None Tremor Observation: 1= Tremor [place], Not Seen Yawning Observation: 0= None Anxiety or Irritability: 0= None Goose Flesh Skin: 0=Smooth Skin COWS Score: 7 CIWA Score - Admission Criteria OASAS Guidelines: Admission for Medically Managed Detox: Requires at least one of the followin. CIWA greater than 12 2. Seizures within the past 24 hours 3. Delirium tremens within the past 24 hours 4. Hallucinations within the past 24 hours 5. Acute intervention needed for co occurring medical disorder 6. Acute intervention needed for co occurring psychiatric disorder 7. Severe withdrawal that cannot be handled at a lower level of care (continued vomiting, continued diarrhea, abnormal vital signs) requiring intravenous medication and/or fluids 8. Admission ROS [facility] Allergies/Adverse Reactions: Allergies Allergy/AdvReac Type Severity Reaction Status Date / Time bee venom protein (honey bee) Allergy Severe Swelling Verified 07/17/18 12:01 penicillin G Allergy Severe Swelling Verified 07/17/18 12:01 History of Present Illness: pt here requesting detox from opiate use , reports 4-5 bags/day via inhalation , denies Ivdu currently + ivdu 20 years ago , first age of use since 1970's , most recent use yesterday 12 noon , current symptoms as above , in outpt program [facility] , referred by counsellor to this facility due to ongoing use . denies other illicits or ETOH currently , in the past reports use of cocaine (25 years ago ). 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 - Ebola screening Have you traveled outside of the country in the last 21 days: No Have you had contact with anyone from an Ebola affected area: No Have you been sick,other than usual withdrawal symptoms: No Do you have a fever: No - Review of Systems Constitutional: See HPI EENT: reports: See HPI, Other (glasses - bifocals) Respiratory: reports: No Symptoms reported Cardiac: reports: No Symptoms Reported GI: reports: No Symptoms Reported : reports: No Symptoms Reported Musculoskeletal: reports: Back Pain, Muscle Pain Integumentary: reports: No Symptoms Reported Neuro: reports: No Symptoms reported Endocrine: reports: No Symptoms Reported Psychiatric: reports: Judgement Intact, Orientated x3 Patient History - Patient Medical History Hx Anemia: No Hx Asthma: No Hx Chronic Obstructive Pulmonary Disease (COPD): No Hx Cancer: No Hx Cardiac Disorders: No Hx Congestive Heart Failure: No Hx Hypertension: Yes (On meds) Hx Hypercholesterolemia: No Hx Pacemaker: No HX Cerebrovascular Accident: No Hx Seizures: No Hx Diabetes: No Hx Gastrointestinal Disorders: No Hx Liver Disease: Yes (HEPATITIS C) Hx Genitourinary Disorders: No Hx Sexually Transmitted Disorders: No Hx Renal Disease (ESRD): No Hx Thyroid Disease: No Hx Human Immunodeficiency Virus (HIV): No (LAST 2017 NEGATIVE) Hx Hepatitis C: Yes Hx Depression: No Hx Suicide Attempt: No Hx Bipolar Disorder: No Hx Schizophrenia: No - Patient Surgical History Past Surgical History: No Hx Neurologic Surgery: No Hx Cataract Extraction: No Hx Cardiac Surgery: No Hx Lung Surgery: No Hx Breast Surgery: No Hx Breast Biopsy: No Hx Abdominal Surgery: No Hx Appendectomy: No Hx Cholecystectomy: No Hx Genitourinary Surgery: No Hx Section: No Hx Orthopedic Surgery: No Anesthesia Reaction: No - PPD History Previous Implant?: Yes Documented Results: Negative w/proof Date: 12/17/17 - Smoking Cessation Smoking history: Current every day smoker Have you smoked in the past 12 months: Yes Aproximately how many cigarettes per day: 10 Hx Chewing Tobacco Use: No Initiated information on smoking cessation: No - Substances Abused Heroin Route: Inhalation Frequency: 3-6 times per week Amount used: 4-5 bags Age of first use: 27 Date of Last Use: 07/16/18 Family Disease History - Family Disease History Family Disease History: Diabetes: Grandparent, Mother, Other: Father Admission Physical Exam BHS - Vital Signs Vital Signs: Vital Signs - 24 hr 07/17/18 11:40 Temperature 97.2 F L Pulse Rate 102 H Respiratory 18 Rate Blood Pressure 165/102 H - Physical General Appearance: Yes: Disheveled, Mild Distress HEENTM: Yes: EOMI, Hearing grossly Normal, Normal ENT Inspection, Normocephalic , Normal Voice, Pharynx Normal, Nasal Congestion, Rhinorrhea, Other (poor dentition, many missing teeth) Respiratory: Yes: Chest Non-Tender, Lungs Clear, Normal Breath Sounds Neck: Yes: No masses,lesions,Nodules, Trachea in good position Breast: Yes: Breast Exam Deferred Cardiology: Yes: Regular Rhythm, Regular Rate, Tachycardia Abdominal: Yes: Normal Bowel Sounds, Non Tender, Protuberent Genitourinary: Yes: Within Normal Limits Back: Yes: Normal Inspection Musculoskeletal: Yes: full range of Motion, Gait Steady, Back pain, Muscle Pain Extremities: Yes: Swelling, Erythema, Inflammation, Other (severe edema bilateral LE w/ induration , dry skin , hyperkeratotic plaques . No open areas noted , patient states swelling is better than since he was at [facility], however admits to not taking BP meds regularly . " it gets better when I put my feet up , I haven't been doing that " . No pain , negative Homans '.) Neurological: Yes: Motor Strength 5/5, Normal Mood/Affect, Normal Response Integumentary: Yes: Normal Color, Dry, Warm - Diagnostic (1) Chronic low back pain Current Visit: No Status: Chronic Qualifiers: Back pain laterality: unspecified Sciatica presence: unspecified whether sciatica present Qualified Code(s): M54.5 - Low back pain; G89.29 - Other chronic pain; G89.29 - Other chronic pain (2) Essential hypertension Current Visit: No Status: Chronic (3) Nicotine dependence Current Visit: No Status: Acute Qualifiers: Nicotine product type: cigarettes Substance use status: uncomplicated Qualified Code(s): F17.210 - Nicotine dependence, cigarettes, uncomplicated (4) Opioid dependence with withdrawal Current Visit: No Status: Acute BHS Breath Alcohol Content Breath Alcohol Content: 0 Urine Drug Screen - Results Drug Screen Negative: No Urine Drug Screen Results: OPI-Opiates, BZO-Benzodiazepines, OXY-Oxycodone, FEN- Fentanyl
[2018-07-17] MEDS ORDERED: guaiFENesin/D-METHORPHAN HB 10 ML UNIT-DOSE CUPS PO PRN (13:59)
[2018-07-17] MEDS ORDERED: MAG HYDROX/AL HYDROX/SIMETH 30 ML UNIT-DOSE CUP PO PRN (13:59)
[2018-07-17] MEDS ORDERED: ACETAMINOPHEN 325 MG TABLET (FP) PO PRN (13:59)
[2018-07-17] MEDS ORDERED: MENTHOL/PHENOL 1 EACH UD MM PRN (13:59)
[2018-07-17] MEDS ORDERED: IBUPROFEN 400 MG TABLET (FP) PO PRN (13:59)
[2018-07-17] MEDS ORDERED: MAGNESIUM HYDROX 2400MG/30ML ORAL SUSPENSION 30 ML CUP PO PRN (13:59)
[2018-07-17] MEDS ORDERED: MAGNESIUM CITRATE 300 ML BOTTLE PO PRN (13:59)
[2018-07-17] MEDS ORDERED: P-EPHED 60MG/TRIPROLIDI 2.5MG TABLET PO PRN (13:59)
[2018-07-17] MEDS: amLODIPine BESYLATE 10 MG TABLET (FP) PO SCH (17:36)
[2018-07-17] MEDS: NICOTINE 7 MG/24 HOURS TOPICAL PATCH TD SCH (17:36)
[2018-07-17] MEDS: HYDROCHLOROTHIAZIDE 12.5 MG CAPSULE (FP) PO SCH (17:36)
[2018-07-17] MEDS ORDERED: MELATONIN 5 MG TABLETS PO PRN (22:00)
[2018-07-17] MEDS: THIAMINE HCL 100 MG TABLET (FP) PO SCH (22:42)
[2018-07-17] MEDS ORDERED: METHADONE HCL 10 MG TABLET (FOR DETOX USE ONLY) PO ONE (23:00)
[2018-07-18 00:01] LABS: URINE APPEARANCE CLEAR; URINE BILIRUBIN NEGATIVE (<2.0 mg/dL); URINE COLOR YELLOW; URINE GLUCOSE (UA) NEGATIVE (NEGATIVE); URINE KETONE NEGATIVE (NEGATIVE); URINE LEUK ESTERASE NEGATIVE (NEGATIVE); URINE NITRITE NEGATIVE (NEGATIVE); URINE PROTEIN NEGATIVE (NEGATIVE); URINE UROBILINOGEN NEGATIVE mg/dL (0.2-1.0)
[2018-07-18] MEDS ORDERED: METHADONE HCL 10 MG TABLET (FOR DETOX USE ONLY) PO ONE (10:00)
[2018-07-18 10:04] LABS: HEMATOCRIT 46.9 % (35.4-49); HEMOGLOBIN 15.2 GM/dL (11.7-16.9); MCH 27.7 pg (25.7-33.7); MCHC 32.5 g/dl (32.0-35.9); MEAN CELL VOLUME 85.3 fl (80-96); MEAN PLT VOLUME 7.8 fl (7.5-11.1); PLATELET COUNT 132 K/MM3 (134-434); RDW 15.6 % (11.9-15.9); WHITE BLOOD COUNT 5.4 K/mm3 (4.0-10.0)
[2018-07-18] MEDS: NICOTINE 7 MG/24 HOURS TOPICAL PATCH TD SCH (10:24)
[2018-07-18] MEDS: HYDROCHLOROTHIAZIDE 12.5 MG CAPSULE (FP) PO SCH (10:24)
[2018-07-18] MEDS: amLODIPine BESYLATE 10 MG TABLET (FP) PO SCH (10:24)
[2018-07-18] MEDS: PRENATAL VITAMINS W/ FOLIC ACID TABLET (FP) PO SCH (10:24)
[2018-07-18 10:25] LABS: ALBUMIN 3.5 g/dl (3.4-5.0); ALK PHOS 84 U/L (45-117); ANION GAP 10 MMOL/L (8-16); BILIRUBIN,TOTAL 1.1 mg/dL (0.2-1); BLOOD UREA NITROGEN 10 mg/dL (7-18); CALCIUM 9.1 mg/dL (8.5-10.1); CHLORIDE 105 mmol/L (98-107); CO2 27 mmol/L (21-32); CREATININE 1.1 mg/dL (0.55-1.3); GLUCOSE,RANDOM 91 mg/dL (74-106); POTASSIUM 4.5 mmol/L (3.5-5.1); SGOT/AST 45 U/L (15-37); SGPT/ALT 37 U/L (13-61); SODIUM 142 mmol/L (136-145); TOT PROT 6.9 g/dl (6.4-8.2)
[2018-07-18] MEDS: ONDANSETRON *ODT* 4 MG TABLET SL PRN ×2 (11:40→21:48)
--- NOTE | 2018-07-18 11:48 | PN ---
[facility] COWS - Scale Resting Pulse: 1= [place] 81-100 Sweatin= Chills/Flushing Restless Observation: 3= Extraneous Movement Pupil Size: 0= Normal to Room Light Bone or Joint Aches: 2= Severe Diffuse Aches Runny Nose/ Eye Tearin= Runny Nose/Eyes GI Upset > 30mins: 1= Stomach Cramp Tremor Observation of Outstretched Hands: 2= Slight Tremor Visible Yawning Observation: 1= 1-2x During Session Anxiety or Irritability: 2=Irritable/Anxious Goose Flesh Skin: 0=Smooth Skin COWS Score: 15 BHS Progress Note (SOAP) Subjective: Stomach ache, diarrhea, anxious, nauseous Objective: 07/18/18 11:44 Last Vital Signs Temp Pulse Resp BP Pulse Ox 98.4 F 96 H 18 174/94 H 07/18/18 09:03 07/18/18 09:03 07/18/18 09:03 07/18/18 09:03 B/P noted (has htn, on medications) Laboratory Tests 07/17/18 07/18/18 07/18/18 23:11 07:17 07:17 WBC 5.4 RBC 5.50 Hgb 15.2 Hct 46.9 MCV 85.3 MCH 27.7 MCHC 32.5 RDW 15.6 Plt Count 132 L MPV 7.8 D Sodium 142 Potassium 4.5 Chloride 105 Carbon Dioxide 27 Anion Gap 10 BUN 10 Creatinine 1.1 Creat Clearance w eGFR > 60 Random Glucose 91 Calcium 9.1 Total Bilirubin 1.1 H AST 45 H ALT 37 Alkaline Phosphatase 84 Total Protein 6.9 Albumin 3.5 Urine Color Yellow Urine Appearance Clear Urine pH 5.0 Ur Specific [place] 1.019 Urine Protein Negative Urine Glucose (UA) Negative Urine Ketones Negative Urine Blood Negative Urine Nitrite Negative Urine Bilirubin Negative Urine Urobilinogen Negative Ur Leukocyte Esterase Negative Labs reviewed Assessment: 07/18/18 11:47 Withdrawal sxs Plan: Continue detox Encouraged PO water intake
[2018-07-18] MEDS ORDERED: hydrOXYzine HCL 25 MG TABLET (FP) PO PRN (14:20)
[2018-07-18] MEDS: diazePAM 5 MG TABLET PO PRN ×2 (14:59→21:43)
[2018-07-18] MEDS: cloNIDine HCL 0.1 MG TABLET PO PRN (15:00)
[2018-07-18] MEDS ORDERED: cloNIDine HCL 0.1 MG TABLET PO ONE (20:56)
[2018-07-18] MEDS: THIAMINE HCL 100 MG TABLET (FP) PO SCH (21:43)
[2018-07-19] MEDS: diazePAM 5 MG TABLET PO PRN (05:58)
[2018-07-19] MEDS: cloNIDine HCL 0.1 MG TABLET PO PRN (05:58)
--- NOTE | 2018-07-19 06:20 | PN ---
[facility] Progress Note Note: Patient complained of crushing chest pain rated at 8/10. He denies radiation at this time. Patient reports vomiting Vital Signs Temperature 98 F 07/18/18 22:18 Pulse Rate 88 07/18/18 22:18 Respiratory Rate 20 07/19/18 03:30 Blood Pressure 191/91 H 07/18/18 22:18 O2 Sat by Pulse Oximetry (%) Action:Stat EKG ordered - T wave abnormality, consider inferolateral ischemia Nitroglycerin 0.4mg sublingual Zofran 4mg IM ordered
[2018-07-19] MEDS: NITROGLYCERIN SUBLINGUAL 1/150 0.4 MG TAB SL PRN ×2 (06:21→06:31)
[2018-07-19] MEDS ORDERED: ONDANSETRON 4 MG/2 ML VIAL IM PRN (06:21)
[2018-07-19 06:39] VITALS: TEMP 97.4
[2018-07-19 06:45] VITALS: BP 159/100; PULSE 101
--- NOTE | 2018-07-19 06:51 | PN ---
[facility] Progress Note Note: Patient's condition is worsening after Nitroglycrin x 2 sublingual was not helpful. Patient is lethargic and diaphoretic. Patient is to be transferred to ER for further evaluation. Endorsed to Ms. Denise Simms NP.
[2018-07-19] MEDS ORDERED: ASPIRIN 81 MG CHEWABLE TABLETS PO ONE (08:15)
[2018-07-19] MEDS ORDERED: METHADONE HCL 5 MG TABLET (FOR DETOX USE ONLY) PO ONE (10:00)
[2018-07-19] MEDS: HYDROCHLOROTHIAZIDE 12.5 MG CAPSULE (FP) PO SCH (10:17)
[2018-07-19] MEDS: amLODIPine BESYLATE 10 MG TABLET (FP) PO SCH (10:17)
[2018-07-19] MEDS: PRENATAL VITAMINS W/ FOLIC ACID TABLET (FP) PO SCH (10:17)
[2018-07-19] MEDS: NICOTINE 7 MG/24 HOURS TOPICAL PATCH TD SCH (10:17)
--- NOTE | 2018-07-19 11:55 | EKG ---
Test Reason : Blood Pressure : / mmHG Vent. Rate : 093 BPM Atrial Rate : 093 BPM P-R Int : 136 ms QRS Dur : 086 ms QT Int : 368 ms P-R-T Axes : 043 015 235 degrees QTc Int : 457 ms NORMAL SINUS RHYTHM POSSIBLE LEFT ATRIAL ENLARGEMENT LEFT VENTRICULAR HYPERTROPHY T WAVE ABNORMALITY, CONSIDER INFEROLATERAL ISCHEMIA ABNORMAL ECG WHEN COMPARED WITH ECG OF 17-JUL-2018 17:59, T WAVE INVERSION NOW EVIDENT IN INFERIOR LEADS Confirmed by CHARLEE GRAJEDA MD ([id number]) on 07/19/2018 11:55:08 AM Referred By: Confirmed By:CHARLEE GRAJEDA MD
--- NOTE | 2018-07-19 11:56 | EKG ---
Test Reason : Blood Pressure : / mmHG Vent. Rate : 085 BPM Atrial Rate : 085 BPM P-R Int : 130 ms QRS Dur : 082 ms QT Int : 378 ms P-R-T Axes : 047 002 093 degrees QTc Int : 449 ms NORMAL SINUS RHYTHM MINIMAL VOLTAGE CRITERIA FOR LVH, MAY BE NORMAL VARIANT T WAVE ABNORMALITY, CONSIDER LATERAL ISCHEMIA ABNORMAL ECG WHEN COMPARED WITH ECG OF 16-DEC-2017 09:44, NONSPECIFIC T WAVE ABNORMALITY, IMPROVED IN INFERIOR LEADS INVERTED T WAVES HAVE REPLACED NONSPECIFIC T WAVE ABNORMALITY IN LATERAL LEADS Confirmed by NICCI WARREN, CHARLEE ([id number]) on 07/19/2018 11:56:07 AM Referred By: Confirmed By:CHARLEE GRAJEDA MD
[2018-07-19] MEDS: THIAMINE HCL 100 MG TABLET (FP) PO SCH (23:47)
[2018-07-20] MEDS ORDERED: METHADONE HCL 10 MG TABLET (FOR DETOX USE ONLY) PO ONE (10:00)
[2018-07-21] MEDS ORDERED: METHADONE HCL 5 MG TABLET (FOR DETOX USE ONLY) PO ONE (06:00)
== END 2018-07-19 23:59 | disposition short-term general hospital (02) | DRG 773 ==
LOC: YASAS 10:51 → Y3N 15:24
PROC: HZ2ZZZZ Detoxification Services for Substance Abuse Treatment (ICD-10-PCS; principal; 2018-07-17)
DX: F11.23 Opioid dependence with withdrawal (principal); F17.210 Nicotine dependence, cigarettes, uncomplicated; I10 Essential (primary) hypertension; B18.2 Chronic viral hepatitis C; M54.5 Low back pain; G89.29 Other chronic pain; Z88.0 Allergy status to penicillin
CPT/HCPCS: 36415; 80053; 81003; 85027; 86593; 93005; 93010; J0735; Q0162

== ENCOUNTER 2018-07-19 07:35 | Inpatient (IN) | payer OTHER ==
[2018-07-19 08:00] VITALS: BMI 44.3
--- NOTE | 2018-07-19 08:03 | PDOC ---
History of Present Illness - General Chief Complaint: Pain Stated Complaint: ABDOMINAL PAIN Time Seen by Provider: 07/19/18 08:02 History Source: Patient, Old Records Exam Limitations: No Limitations - History of Present Illness Initial Comments: 63 y/o male presenting to [facility] ER via ambulance from [facility] detox facility. Electronic note from [facility] reports pt complained of chest pain at approx. 6am. He received nitro x2 and zofran before being transferred. On arrival, pts chief complaint was resolved abdominal pain and nausea/vomiting x3 episodes. Endorsed possible bilious but nonbloody. Stated pain was across the top of his abdomen but resolved after he stopped throwing up. Social Hx: - Heroin abuse. Last used on Monday (15 Jul 2018). Remote history of needle use (>20 years). - Tobacco: smokes 1 pack per day. - EtOH: Denies Medical Hx: - HTN - Hep C, status unknown, no medications reported Surgical Hx: - Pt denies past surgical history. Past History - Past Medical History Allergies/Adverse Reactions: Allergies Allergy/AdvReac Type Severity Reaction Status Date / Time bee venom protein (honey bee) Allergy Severe Swelling Verified 07/19/18 07:57 penicillin G Allergy Severe Swelling Verified 07/19/18 07:57 Home Medications: Ambulatory Orders Amlodipine/Atorvastatin [Amlodipine-Atorvast 10-10 mg] 10 mg PO DAILY 12/15/17 Amlodipine Besylate 10 mg PO DAILY 30 Days #30 tablet 12/19/17 Amlodipine Besylate [Norvasc -] 10 mg PO DAILY #0 tablet 07/23/18 Carvedilol [Coreg -] 6.25 mg PO BID #60 tablet 07/23/18 Hydrochlorothiazide 25 mg PO DAILY 30 Days #30 tablet 07/23/18 Valsartan [Diovan] 160 mg PO DAILY #30 tablet 07/23/18 levoFLOXacin [Levaquin -] 250 mg PO DAILY@0600 #5 tablet 07/23/18 Anemia: No Asthma: No Cancer: No Cardiac Disorders: No CVA: No COPD: No CHF: No Diabetes: No GI Disorders: No Disorders: No HTN: Yes (On meds) Hypercholesterolemia: No Kidney Stones: No Liver Disease: Yes (HEPATITIS C) Seizures: No Thyroid Disease: No - Surgical History Abdominal Surgery: No Appendectomy: No Cardiac Surgery: No Cholecystectomy: No Lung Surgery: No Neurologic Surgery: No Orthopedic Surgery: No - Reproductive History Testicular Surgery: No - Suicide/Smoking/Psychosocial Hx Smoking History: Current every day smoker Have you smoked in the past 12 months: Yes Number of Cigarettes Smoked Daily: 10 Information on smoking cessation initiated: No 'Breaking Loose' booklet given: 12/15/17 Hx Alcohol Use: No Drug/Substance Use Hx: Yes Substance Use Type: Heroin, Opiates Hx Substance Use Treatment: Yes ([facility] on 12/20) Review of Systems - Review of Systems Able to Perform ROS?: Yes Comments:: In addition to that documented in the HPI above, the additional ROS was obtained : Constitutional: Denies fevers or chills Eyes: Denies vision changes ENMT: Denies sore throat CV: Denies chest pain Resp: Denies SOB GI: Endorses vomiting and diarrhea *Physical Exam - Vital Signs Last Vital Signs Temp Pulse Resp BP Pulse Ox 98.2 F 92 H 18 153/80 100 07/19/18 07:35 07/19/18 07:39 07/19/18 07:39 07/19/18 07:39 07/19/18 07:39 - Physical Exam Comments: Constitutional: Obese male in no acute distress. Found semi-fowlers in hospital bed. Sleeping comfortable, arousable to voice. Alert and oriented x4. Answered all questions appropriately and completely. Speech was non-labored, non- pressured. HEENT: Normocephalic. No obvious external signs of trauma. Hearing grossly normal. No nasal discharge. Neck is supple, trachea is midline. Cardiovascular: Regular rate and regular rhythm. No murmur, rubs, clicks, or gallops. Peripheral pulses: Radial pulses full. Respiratory: Breathing unlabored. Equal chest rise and fall. Clear to auscultation bilaterally. No stridor, no wheezing, no rhonchi. Gastrointestinal: abdomen is soft, non-tender, non-distended. No pulsatile masses. No overlying skin lesions or obvious signs of trauma. Neuro: Alert and oriented. Moving all four extremities spontaneously. Skin: Warm, dry, and intact. Psych: Affect: appropriate. Mood: normal. ED Treatment Course - LABORATORY CBC & Chemistry Diagram: 07/23/18 05:30 07/23/18 05:30 Medical Decision Making - Medical Decision Making *Reviewed vital signs, nursing notes, and prior visit documentation (if available). Reviewed note from [facility] prior to transfer. Details a very different story than that pt told on initial interview. Note states pt was complaining of crushing substernal pain requiring two SL nitro with possible new EKG changes. Will obtain cardiac workup. ASA ordered. HEART Score for Major Cardiac Events from [facility] [employer] on 07/19/2018 RESULT SUMMARY: 5 points Moderate Score (4-6 points) Risk of MACE of 12-16.6%. INPUTS: History > 1 = Moderately suspicious EKG > 1 = Non-specific repolarization disturbance Age > 1 = 45-64 Risk factors > 2 = ?3 risk factors or history of atherosclerotic disease Initial troponin > 0 = ?normal limit EKG showed a sinus rhythm with a ventricular rate of 89 bpm. Normal axis. Normal intervals. T wave inversions in I, II, III, aVF, V5, and V6. Prior EKG dated 16 December 2017 showed T wave inversions only in precordial leads. Troponin not elevated. Low suspicion for ACS, as this was drawn >3hrs since chest pain. However, heart score is moderate. Will likely admit for CPRO. Leukocytosis to 23.8 with left shift, which is a trend upward from [address] of abdomen given vague abdominal/GI complaint and leukocytosis. PT/INR elevated. Unsure of etiology. Pt is not on anticoagulants. CMP revealed elevated T. Bili and AST. Acetaminophen level not elevated. CT of Abdomen and Pelvis (without contrast): Large left peripherally calcified renal mass. Suspected tumoral lesion. Will obtain U/S to further evaluate. 13:21 Telephone consult with LOGGING ASSISTANT Kaity Tsai. Discussed HPI, ED course, and current plan of management. Agreed to admit to telemetry. *DC/Admit/Observation/Transfer Diagnosis at time of Disposition: Chest pain in adult, Left renal mass Leukocytosis, unspecified Qualifiers: Leukocytosis type: bandemia Qualified Code(s): D72.825 - Bandemia - Discharge Dispostion Disposition: HOME Condition at time of disposition: Stable Decision to Admit order: Yes - Prescriptions - Referrals - Patient Instructions - Post Discharge Activity
--- NOTE | 2018-07-19 08:04 | PDOC ---
Attending Attestation - Resident Resident Name: Miguel Booker - HPI HPI: 07/19/18 08:33 pt presents to the Ed complaining of nausea with multiple episodes of non bloody non billious vomiting and epigastric abdominal pain. History of heroin abuse, at [facility] for detox, reports that he has increased his heroin use since his last admission to [facility]. Patient also had an episode of substenal chest pain that lasted approximately one minute. Given nitroglycerin x 2 with resolution of his chest pain. Denies radiation or shortness of breath. Denies prior episodes of chest pain. - Physicial Exam PE: 07/19/18 08:40 Agree with resident exam. Patient is alert and oriented x 3 and in no acute distress. Abdomen is soft, non tender and non distended. No peripheral edema. - Medical Decision Making 07/19/18 08:41 Pt presents to the ED complaining of chest pain, nausea and vomiting. Abdomen is non tender. Nausea and vomiting may be secondary to withdrawal, but will check labs to rule out infection or biliary disease. Chest pain is concerning for ACS given HEART score of 4. Currently chest pain free. EKG shows new t wave inversions in inferior leads. will give ASA and admit for observation for r/o ACS.
[2018-07-19] MEDS ORDERED: ASPIRIN 81 MG CHEWABLE TABLETS PO ONE (08:38)
[2018-07-19] MEDS ORDERED: ASPIRIN 81 MG CHEWABLE TABLETS ONE (08:49)
[2018-07-19] MEDS ORDERED: METHADONE HCL 10 MG TABLET ONE (09:33)
[2018-07-19] MEDS ORDERED: METHADONE HCL 10 MG TABLET PO ONE (09:38)
[2018-07-19 09:43] LABS: BASO % 0.2 % (0-2.0); EOS % 0.1 % (0-4.5); HEMATOCRIT 50.9 % (35.4-49); HEMOGLOBIN 16.5 GM/dL (11.7-16.9); MCH 27.2 pg (25.7-33.7); MCHC 32.5 g/dl (32.0-35.9); MEAN CELL VOLUME 83.9 fl (80-96); MEAN PLT VOLUME 7.5 fl (7.5-11.1); MONO % 5.6 % (3.8-10.2); NEUT % 89.1 % (42.8-82.8); PLATELET COUNT 148 K/MM3 (134-434); RBC 6.07 M/mm3 (4.00-5.60); RDW 15.4 % (11.9-15.9); WHITE BLOOD COUNT 23.8 K/mm3 (4.0-10.0)
[2018-07-19 09:57] LABS: INR 1.2 (0.83-1.09); PROTHROMBIN TIME (PATIENT) 14.2 SEC (9.7-13.0)
[2018-07-19 10:26] LABS: ALBUMIN 3.6 g/dl (3.4-5.0); ALK PHOS 91 U/L (45-117); ANION GAP 10 MMOL/L (8-16); BILIRUBIN,TOTAL 1.8 mg/dL (0.2-1); BLOOD UREA NITROGEN 14 mg/dL (7-18); CALCIUM 9.2 mg/dL (8.5-10.1); CHLORIDE 94 mmol/L (98-107); CO2 29 mmol/L (21-32); CREATININE 1.2 mg/dL (0.55-1.3); GLUCOSE,RANDOM 95 mg/dL (74-106); LIPASE 70 U/L (73-393); MAGNESIUM 1.5 mg/dL (1.8-2.4); POTASSIUM 4.3 mmol/L (3.5-5.1); SGOT/AST 46 U/L (15-37); SGPT/ALT 31 U/L (13-61); SODIUM 132 mmol/L (136-145); TOT PROT 7.5 g/dl (6.4-8.2)
[2018-07-19] MEDS ORDERED: LACTATED RINGERS SOLUTION 1000 ML INFUS.BAG IV ONE (10:49)
[2018-07-19 14:01] LABS: URINE APPEARANCE CLEAR; URINE BILIRUBIN NEGATIVE (<2.0 mg/dL); URINE COLOR AMBER; URINE GLUCOSE (UA) NEGATIVE (NEGATIVE); URINE KETONE 1+ (NEGATIVE); URINE LEUK ESTERASE NEGATIVE (NEGATIVE); URINE NITRITE NEGATIVE (NEGATIVE); URINE PROTEIN 1+ (NEGATIVE); URINE UROBILINOGEN 4.0 E.U/dl mg/dL (0.2-1.0)
[2018-07-19 14:24] LABS: EPI CELLS RARE /HPF (FEW); URINE MUCUS RARE
[2018-07-19 14:27] LABS: ACANTHOCYTES 0; ANISOCYTOSIS 0; HELMET CELLS 0; HOWELL-JOLLY BODIES 0; MACROCYTOSIS 0; OVALOCYTE 0; PLATELET ESTIMATE DECREASED; ROULEAU 0; SICKELED CELLS 0; TARGET CELLS 0; TEAR DROP CELLS 0; TOXIC GRANULATION 0
[2018-07-19] MEDS ORDERED: MAGNESIUM OXIDE 400 MG TABLET (FP) PO ONE (15:58)
--- NOTE | 2018-07-19 15:59 | HP ---
CHIEF COMPLAINT: chest pain, abdominal pain PCP: none HISTORY OF PRESENT ILLNESS: Patient is a 63 year old male with a significant past medical history of hypertension, bilateral lower extremity edema, polysubstance abuse, IVDU x 20 years ago, none recent, referred to [facility] for detox of opiate use. Reports 4-5 bags via inhalation. Patient was at detox at [facility] but was sent to the ER after he c/o of crushing chest pain and became lethargic and diaphoretic. He was given Nitroglycerin 0.4mg x 2 sublingual but pain did not subside. An EKG at [facility] was reported to have t wave abnormality with possible inferolateral ischemia. While he was in the Ed he c/o of chest pain, nausea, vomiting. Abdomen CT shows non specific mosaic opacity of the lungs with possible groundglass opacity in the lingula. Platelike atelectasis changes. A left renal mass was also found. Patient noted also to be congested in the ED. EKG shows new t wave inversion in inferior leads. Patient being admitted to rule out ACS. He is also noted to have an elevated WBC. Will initiate a septic workup. ER course was notable for: (1) abd/ct/pelvis: kidneys with large periphellary calcified left posterior renal mass measuring 8.8 cm in ap dimension 9.2cm in width. tumor lesion suspected. (2) renal u/s a 9.4 cm left posterior renal cortical lesion seen with prominent peipheral rim calcification. (3) leukocytosis, tachycardia, lethargy, Vital Signs Temperature 98 F 07/18/18 22:18 Pulse Rate 88 07/18/18 22:18 Respiratory Rate 20 07/19/18 03:30 Blood Pressure 191/91 H 07/18/18 22:18 O2 Sat by Pulse Oximetry (%) Recent Travel: PAST MEDICAL HISTORY: PAST SURGICAL HISTORY: Social History: Smoking:Current every day smoker Alcohol: none recent Drugs: heroin Family History: Allergies bee venom protein (honey bee) Allergy (Severe, Verified 07/19/18 07:57) Swelling penicillin G Allergy (Severe, Verified 07/19/18 07:57) Swelling HOME MEDICATIONS: Home Medications Medication Instructions Recorded Amlodipine/Atorvastatin 10 mg PO DAILY 12/15/17 [Amlodipine-Atorvast 10-10 mg] Amlodipine Besylate 10 mg PO DAILY 30 Days #30 tablet 12/19/17 Hydrochlorothiazide 25 mg PO DAILY 30 Days #30 tablet 12/19/17 PHYSICAL EXAMINATION Vital Signs - 24 hr 07/19/18 07/19/18 07:35 07:39 Temperature 98.2 F Pulse Rate 94 H 92 H Respiratory 16 18 Rate Blood Pressure 158/80 153/80 O2 Sat by Pulse 100 100 Oximetry (%) GENERAL: Awake, lethargic, in no acute distress, fatigue HEAD: Normal with no signs of trauma, congestion noted EYES: Pupils equal, round and reactive to light EARS, NOSE, THROAT: clear drainage from nares, congested. NECK: Normal range of motion, supple without lymphadenopathy, JVD, or masses. LUNGS: diminished bilaterally HEART: Regular rate and rhythm ABDOMEN: Soft, distended MUSCULOSKELETAL: No CVA tenderness. UPPER EXTREMITIES: . No peripheral edema. LOWER EXTREMITIES: swelling, erythema, inflammation, severe bilateral lower ext edema w/induration, dry skin , hyperkeratotic plaques. No open areas. bilateral lower ext edema. will doppler. NEUROLOGICAL: fatigue,calm, cooperative PSYCHIATRIC: Cooperative. Laboratory Results - last 24 hr 07/19/18 07/19/18 07/19/18 08:33 08:33 09:25 WBC 23.8 H RBC 6.07 H Hgb 16.5 Hct 50.9 H MCV 83.9 MCH 27.2 MCHC 32.5 RDW 15.4 Plt Count 148 MPV 7.5 Absolute Neuts (auto) 21.2 H Neutrophils % 89.1 H Neutrophils % (Manual) 90.0 H Band Neutrophils % 0.0 Lymphocytes % 5.0 L Lymphocytes % (Manual) 3.0 L Monocytes % 5.6 Monocytes % (Manual) 4 Eosinophils % 0.1 Eosinophils % (Manual) 0.0 Basophils % 0.2 Basophils % (Manual) 0.0 Myelocytes % (Man) 0 Promyelocytes % (Man) 0 Blast Cells % (Manual) 0 Nucleated RBC % 0 Metamyelocytes 0 Hypochromia 0 Toxic Granulation 0 Dohle Bodies 0 Platelet Estimate Decreased Polychromasia 0 Poikilocytosis 0 Basophilic Stippling 0 Anisocytosis 0 Microcytosis 0 Macrocytosis 0 Spherocytes 0 Sickle Cells 0 Target Cells 0 Tear Drop Cells 0 Ovalocytes 0 Stomatocytes 0 Helmet Cells 0 [place] Bodies 0 [place] Rings 0 Lizeth Cells 0 Acanthocytes (Spur) 0 Rouleaux 0 Fragmented RBCs 0 Schistocytes 0 PT with INR 14.20 H INR 1.20 H Sodium 132 L Potassium 4.3 Chloride 94 L Carbon Dioxide 29 Anion Gap 10 BUN 14 Creatinine 1.2 Creat Clearance w eGFR > 60 Random Glucose 95 Calcium 9.2 Magnesium 1.5 L Total Bilirubin 1.8 H AST 46 H ALT 31 Alkaline Phosphatase 91 Troponin I 0.04 Total Protein 7.5 Albumin 3.6 Lipase 70 L Urine Color Urine Appearance Urine pH Ur Specific [place] Urine Protein Urine Glucose (UA) Urine Ketones Urine Blood Urine Nitrite Urine Bilirubin Urine Urobilinogen Ur Leukocyte Esterase Urine WBC (Auto) Urine RBC (Auto) Ur Epithelial Cells Urine Mucus Acetaminophen < 2 L 07/19/18 13:34 WBC RBC Hgb Hct MCV MCH MCHC RDW Plt Count MPV Absolute Neuts (auto) Neutrophils % Neutrophils % (Manual) Band Neutrophils % Lymphocytes % Lymphocytes % (Manual) Monocytes % Monocytes % (Manual) Eosinophils % Eosinophils % (Manual) Basophils % Basophils % (Manual) Myelocytes % (Man) Promyelocytes % (Man) Blast Cells % (Manual) Nucleated RBC % Metamyelocytes Hypochromia Toxic Granulation Dohle Bodies Platelet Estimate Polychromasia Poikilocytosis Basophilic Stippling Anisocytosis Microcytosis Macrocytosis Spherocytes Sickle Cells Target Cells Tear Drop Cells Ovalocytes Stomatocytes Helmet Cells [place] Bodies [place] Rings Lizeth Cells Acanthocytes (Spur) Rouleaux Fragmented RBCs Schistocytes PT with INR INR Sodium Potassium Chloride Carbon Dioxide Anion Gap BUN Creatinine Creat Clearance w eGFR Random Glucose Calcium Magnesium Total Bilirubin AST ALT Alkaline Phosphatase Troponin I Total Protein Albumin Lipase Urine Color Mar Urine Appearance Clear Urine pH 5.0 Ur Specific [place] 1.020 Urine Protein 1+ H Urine Glucose (UA) Negative Urine Ketones 1+ H Urine Blood 1+ H Urine Nitrite Negative Urine Bilirubin Negative Urine Urobilinogen 4.0 e.u/dl Ur Leukocyte Esterase Negative Urine WBC (Auto) 4 Urine RBC (Auto) 1 Ur Epithelial Cells Rare Urine Mucus Rare Acetaminophen ASSESSMENT/PLAN: Patient is a 63 year old male with a significant past medical history of hypertension, hepatitis c, bilateral lower extremity edema, polysubstance abuse , IVDU x 20 years ago, none recent, referred to [facility] for detox of opiate use. Reports 4-5 bags via inhalation. Patient was at detox at [facility] but was sent to the ER after he c/o of crushing chest pain and became lethargic and diaphoretic. He was given Nitroglycerin 0.4mg x 2 sublingual but pain did not subside. An EKG at [facility] was reported to have t wave abnormality with possible inferolateral ischemia. While he was in the Ed he c/o of chest pain, nausea, vomiting. Abdomen CT shows non specific mosaic opacity of the lungs with possible groundglass opacity in the lingula. Platelike atelectasis changes. A left renal mass was also found. Patient noted also to be congested in the ED. EKG shows new t wave inversion in inferior leads. Patient being admitted to rule out ACS. He is also noted to have an elevated WBC. Will initiate a septic workup. ------- problem list bilateral lower ext edema polysubstance abuse IVDU Heroin use Renal mass sepsis rule out acs --------- Imaging: abd/ct/pelvis: kidneys with large peripherally calcified left posterior renal mass measuring 8.8 cm in ap dimension 9.2cm in width. tumor lesion suspected. renal u/s a 9.4 cm left posterior renal cortical lesion seen with prominent peipheral rim calcification. ID: Meets SIRS criteria/early sepsis/possible pneumonia WBC elevated. tachycardia. tachypnea. Presents with shortness of breath, chronic cough, fatigue. chest pain. Blood and urine cultures ordered and sent before antibiotic initiated CT shows non specific mosaic opacity of the lungs with possible groundglass opacity PCN allergy Will give one dose of Levaquin 750mg x 1 and consult ID for further recommendations. Will order: duonebs supplemental oxygen continuous pulse ox monitoring Card: Chest pain/shortness of breath Rule out ACS trend trops echo monitor on tele Psyche Polysubstance abuse, heroin abuse On Methadone Will consult detox specialist Renal: Large Calcified left posterior renal mass noted on imaging ultrasound noted Will consult renal for further recommendations fen gently hydrate start low salt diet as tolerated monitor electrolytes prophy heparin tid l Visit type - Emergency Visit Emergency Visit: Yes ED Registration Date: 07/19/18 Care time: The patient presented to the Emergency Department on the above date and was hospitalized for further evaluation of their emergent condition. - New Patient This patient is new to me today: Yes Date on this admission: 07/20/18 - Critical Care Critical Care patient: No
[2018-07-19] MEDS ORDERED: KETOROLAC TROMETHAMINE 30 MG/1 ML VIAL ONE (18:13)
[2018-07-19] MEDS ORDERED: MAGNESIUM OXIDE 400 MG TABLET (FP) ONE (18:13)
[2018-07-19] MEDS ORDERED: KETOROLAC TROMETHAMINE 30 MG/1 ML VIAL IVPUSH ONE (18:25)
[2018-07-19 18:29] LABS: BASO % 0.6 % (0-2.0); HEMATOCRIT 51.2 % (35.4-49); HEMOGLOBIN 17.1 GM/dL (11.7-16.9); LYMPH % 7.3 % (8-40); MCH 27.8 pg (25.7-33.7); MCHC 33.5 g/dl (32.0-35.9); MEAN CELL VOLUME 83.2 fl (80-96); MEAN PLT VOLUME 7.6 fl (7.5-11.1); MONO % 6.7 % (3.8-10.2); NEUT % 85.4 % (42.8-82.8); PLATELET COUNT 149 K/MM3 (134-434); RBC 6.16 M/mm3 (4.00-5.60); RDW 15.1 % (11.9-15.9); WHITE BLOOD COUNT 20.1 K/mm3 (4.0-10.0)
[2018-07-19 19:10] LABS: PLATELET ESTIMATE ADEQUATE
[2018-07-19] MEDS ORDERED: ALBUTEROL SO4 2.5/IPRATROPIUM 0.5 INH SOL 3 ML VIAL.NEB. NEB PRN (20:18)
[2018-07-19] MEDS ORDERED: SODIUM CHLORIDE 1,000 ML IV SCH (23:30)
[2018-07-20] MEDS ORDERED: ALBUTEROL SO4 2.5/IPRATROPIUM 0.5 INH SOL 3 ML VIAL.NEB. NEB ONE ×3 (00:36→11:25)
[2018-07-20] MEDS: ALBUTEROL SO4 2.5/IPRATROPIUM 0.5 INH SOL 3 ML VIAL.NEB. NEB SCH ×6 (01:25→21:25)
[2018-07-20] MEDS ORDERED: HEPARIN NA (PORCINE) 5,000 UNITS/ML 1ML VIAL ONE (06:29)
[2018-07-20] MEDS: HEPARIN NA (PORCINE) 5,000 UNITS/ML 1ML VIAL SQ SCH ×3 (06:35→22:54)
--- NOTE | 2018-07-20 09:06 | ECHO ---
Name: TAMIKA RAMOS Exam:Adult Echocardiogram Study Date: 07/20/2018 07:17 AM Age: 63 yrs Reason For Study: SOB Height: 69 in Weight: 300 lb BSA: 2.5 m2 MMode/2D Measurements & Calculations IVSd: 0.85 cm Ao root diam: 3.3 cm LVIDd: 5.0 cm LA dimension: 3.6 cm LVIDs: 4.8 cm LVPWd: 1.2 cm EDV(Teich): 119.3 ml LVOT diam: 2.1 cm ESV(Teich): 108.3 ml Doppler Measurements & Calculations Med Peak E' Alfredito: 7.3 cm/sec Lat Peak E' Alfredito: 3.4 cm/sec Procedure The study was technically difficult with many images being suboptimal in quality. Left Ventricle Although wall motion is not well seen, the inferior wall and inferolateral wall appear severely hypok inetic in multiple views. The remaining [place] appear moderately hypokinetic. Overall, LVEF appears to be modera te to severely reduced. The transmitral spectral Doppler flow pattern is suggestive of impaired LV relaxati on. Right Ventricle The right ventricle is not well visualized. Atria Normal left and right atrial size and function. Mitral Valve The mitral valve is normal in structure and function. There is no mitral valve stenosis. There is no mitral regurgitation noted. Tricuspid Valve The tricuspid valve is not well visualized, but is grossly normal. There is mild tricuspid regurgitat ion. Aortic Valve There is moderate aortic sclerosis.;. No hemodynamically significant valvular aortic stenosis. No aor tic regurgitation is present. Pulmonic Valve The pulmonic valve is not well seen, but is grossly normal. There is no pulmonic valvular stenosis. T here is no pulmonic valvular regurgitation. Great Vessels The aortic root is normal size. Pericardium/Pleura There is no pericardial effusion. Interpretation Summary Suggest repeating study with contrast as outpatient for better assessment of wall motion and more pre cise evaluation of LVEF. The study was technically difficult with many images being suboptimal in quality. Although wall motion is not well seen, the inferior wall and inferolateral wall appear severely hypok inetic in multiple views. The remaining holbrook appear moderately hypokinetic. Overall, LVEF appears to be modera te to severely reduced. There is mild tricuspid regurgitation. There is moderate aortic sclerosis.; There is no pericardial effusion. MD Tomas Ortiz 07/20/2018 09:06 AM
[2018-07-20 09:14] LABS: BASO % 0.3 % (0-2.0); EOS % 0.3 % (0-4.5); HEMATOCRIT 58.3 % (35.4-49); HEMOGLOBIN 19.2 GM/dL (11.7-16.9); LYMPH % 9.6 % (8-40); MCH 27.6 pg (25.7-33.7); MEAN CELL VOLUME 83.6 fl (80-96); MEAN PLT VOLUME 7.5 fl (7.5-11.1); MONO % 8.7 % (3.8-10.2); NEUT % 81.1 % (42.8-82.8); PLATELET COUNT 158 K/MM3 (134-434); RBC 6.97 M/mm3 (4.00-5.60); RDW 15.1 % (11.9-15.9); WHITE BLOOD COUNT 14.6 K/mm3 (4.0-10.0)
[2018-07-20] MEDS ORDERED: amLODIPine BESYLATE 5 MG TABLET (FP) ONE (11:16)
[2018-07-20] MEDS ORDERED: PANTOPRAZOLE 40 MG TABLET (FP) ONE (11:16)
[2018-07-20] MEDS ORDERED: HYDROCHLOROTHIAZIDE 25 MG TABLET (FP) ONE (11:17)
[2018-07-20] MEDS: HYDROCHLOROTHIAZIDE 25 MG TABLET (FP) PO SCH (11:23)
[2018-07-20] MEDS: PANTOPRAZOLE 40 MG TABLET (FP) PO SCH (11:23)
[2018-07-20] MEDS: amLODIPine BESYLATE 10 MG TABLET (FP) PO SCH (11:23)
[2018-07-20 12:37] LABS: ALBUMIN 3.2 g/dl (3.4-5.0); ALK PHOS 83 U/L (45-117); ANION GAP 8 MMOL/L (8-16); BILIRUBIN,TOTAL 1.1 mg/dL (0.2-1); BLOOD UREA NITROGEN 20 mg/dL (7-18); CALCIUM 8.6 mg/dL (8.5-10.1); CHLORIDE 97 mmol/L (98-107); CO2 29 mmol/L (21-32); CREATININE 1.2 mg/dL (0.55-1.3); GLUCOSE,RANDOM 80 mg/dL (74-106); POTASSIUM 3.9 mmol/L (3.5-5.1); SGOT/AST 47 U/L (15-37); SGPT/ALT 33 U/L (13-61); SODIUM 134 mmol/L (136-145); TOT PROT 7.2 g/dl (6.4-8.2)
--- NOTE | 2018-07-20 12:43 | CON.ID ---
Consult Consult Specialty:: infectious diseases Reason for Consultation:: sepsis,leukocytosis - History of Present Illness Chief Complaint: chest pain History of Present Illness: 63 year old male with a significant past medical history of hypertension, bilateral lower extremity edema, polysubstance abuse, IVDU x 20 years ago, none recent, referred to [facility] for detox of opiate use. Reports 4-5 bags via inhalation. Patient was at detox at [facility] but was sent to the ER after he c /o of crushing chest pain and became lethargic and diaphoretic. He was given Nitroglycerin 0.4mg x 2 sublingual but pain did not subside. An EKG at [facility] was reported to have t wave abnormality with possible inferolateral ischemia. While he was in the Ed he c/o of chest pain, nausea, vomiting. Abdomen CT shows non specific mosaic opacity of the lungs with possible groundglass opacity in the lingula. Platelike atelectasis changes. A left renal mass was also found. - History Source History Provided By: Patient, Medical Record Limitations to Obtaining History: Poor Historian - Alcohol/Substance Use Hx Alcohol Use: No - Smoking History Smoking history: Current every day smoker Have you smoked in the past 12 months: Yes Aproximately how many cigarettes per day: 10 Home Medications - Allergies Allergies/Adverse Reactions: Allergies Allergy/AdvReac Type Severity Reaction Status Date / Time bee venom protein (honey bee) Allergy Severe Swelling Verified 07/19/18 07:57 penicillin G Allergy Severe Swelling Verified 07/19/18 07:57 - Home Medications Home Medications: Ambulatory Orders RX: Amlodipine/Atorvastatin [Amlodipine-Atorvast 10-10 mg] 10 mg PO DAILY RX: Amlodipine Besylate 10 mg PO DAILY 30 Days #30 tablet 12/19/17 RX: Amlodipine Besylate [Norvasc -] 10 mg PO DAILY #0 tablet 07/23/18 RX: Carvedilol [Coreg -] 6.25 mg PO BID #60 tablet 07/23/18 RX: Hydrochlorothiazide 25 mg PO DAILY 30 Days #30 tablet 07/23/18 RX: Valsartan [Diovan] 160 mg PO DAILY #30 tablet 07/23/18 RX: levoFLOXacin [Levaquin -] 250 mg PO DAILY@0600 #5 tablet 07/23/18 Family Disease History - Family Disease History Family Disease History: Diabetes: Grandparent, Mother, Other: Father Review of Systems - Review of Systems Constitutional: reports: No Symptoms Eyes: reports: No Symptoms HENT: reports: No Symptoms Neck: reports: No Symptoms Cardiovascular: reports: Chest Pain Respiratory: reports: No Symptoms Gastrointestinal: reports: No Symptoms Genitourinary: reports: No Symptoms Musculoskeletal: reports: No Symptoms Integumentary: reports: No Symptoms Neurological: reports: Dizziness Endocrine: reports: No Symptoms, Unexplained Weight Loss Psychiatric: reports: No Symptoms Physical Exam Vital Signs: Vital Signs Temperature 98.2 F 07/20/18 10:52 Pulse Rate 102 H 07/20/18 10:52 Respiratory Rate 20 07/20/18 10:52 Blood Pressure 168/108 H 07/20/18 10:52 O2 Sat by Pulse Oximetry (%) 98 07/20/18 10:52 Constitutional: Yes: Well Nourished, Calm, Mild Distress Eyes: Yes: Conjunctiva Clear HENT: Yes: Atraumatic, Normocephalic Neck: Yes: Supple, Trachea Midline Cardiovascular: Yes: Regular Rate and Rhythm Respiratory: Yes: Regular, CTA Bilaterally Gastrointestinal: Yes: Normal Bowel Sounds, Soft Musculoskeletal: Yes: WNL Extremities: Yes: WNL Neurological: Yes: Alert, Oriented Labs: CBC, BMP 07/20/18 09:10 07/20/18 11:50 Imaging - Results Chest X-ray: Report Reviewed, Image Reviewed Cat Scan: Report Reviewed, Image Reviewed Assessment/Plan 63 year old male with a significant past medical history of hypertension, hepatitis c, bilateral lower extremity edema, polysubstance abuse, IVDU x 20 years ago, problem list bilateral lower ext edema polysubstance abuse IVDU Heroin use Renal mass sepsis leukocytosis patient looks comfortable, plan will start patient on zosyn monitor wbc closely gi involvement and cardio i think we should get a ct scan of the chest also rest as per the team
--- NOTE | 2018-07-20 13:42 | PN ---
Physical Exam: SUBJECTIVE: Patient seen and examined OBJECTIVE: Vital Signs Period Temp Pulse Resp BP Sys/Scott Pulse Ox Last 24 Hr 98.2 F-98.8 F 82-102 16-28 159-170/85-108 97-98 GENERAL: Awake, lethargic, in no acute distress, fatigue HEAD: Normal with no signs of trauma, congestion noted EYES: Pupils equal, round and reactive to light EARS, NOSE, THROAT: clear drainage from nares, congested. NECK: Normal range of motion, supple without lymphadenopathy, JVD, or masses. LUNGS: diminished bilaterally HEART: Regular rate and rhythm ABDOMEN: Soft, distended MUSCULOSKELETAL: No CVA tenderness. UPPER EXTREMITIES: . No peripheral edema. LOWER EXTREMITIES: swelling, erythema, inflammation, severe bilateral lower ext edema w/induration, dry skin , hyperkeratotic plaques. No open areas. bilateral lower ext edema. negative for dvt NEUROLOGICAL: fatigue,calm, cooperative PSYCHIATRIC: Cooperative. Laboratory Results - last 24 hr 07/19/18 07/19/18 07/19/18 09:25 13:34 18:12 WBC 20.1 H RBC 6.16 H Hgb 17.1 H Hct 51.2 H MCV 83.2 MCH 27.8 MCHC 33.5 RDW 15.1 Plt Count 149 MPV 7.6 Absolute Neuts (auto) 17.2 H Neutrophils % 85.4 H Neutrophils % (Manual) 90.0 H 82.0 Band Neutrophils % 0.0 0.0 Lymphocytes % 7.3 L D Lymphocytes % (Manual) 3.0 L 11.0 D Monocytes % 6.7 Monocytes % (Manual) 4 5 Eosinophils % 0.0 D Eosinophils % (Manual) 0.0 0.0 Basophils % 0.6 Basophils % (Manual) 0.0 0.0 Myelocytes % (Man) 0 Promyelocytes % (Man) 0 Blast Cells % (Manual) 0 Nucleated RBC % 0 Metamyelocytes 0 Hypochromia 0 Toxic Granulation 0 Dohle Bodies 0 Platelet Estimate Decreased Adequate Polychromasia 0 Poikilocytosis 0 Basophilic Stippling 0 Anisocytosis 0 Microcytosis 0 Macrocytosis 0 Spherocytes 0 Sickle Cells 0 Target Cells 0 Tear Drop Cells 0 Ovalocytes 0 Stomatocytes 0 Helmet Cells 0 [place] Bodies 0 [place] Rings 0 Lizeth Cells 0 Acanthocytes (Spur) 0 Rouleaux 0 Fragmented RBCs 0 Schistocytes 0 PTT (Actin FS) Sodium Potassium Chloride Carbon Dioxide Anion Gap BUN Creatinine Creat Clearance w eGFR Random Glucose Hemoglobin A1c % Lactic Acid Calcium Magnesium Total Bilirubin AST ALT Alkaline Phosphatase Troponin I Total Protein Albumin Urine Color Mar Urine Appearance Clear Urine pH 5.0 Ur Specific [place] 1.020 Urine Protein 1+ H Urine Glucose (UA) Negative Urine Ketones 1+ H Urine Blood 1+ H Urine Nitrite Negative Urine Bilirubin Negative Urine Urobilinogen 4.0 e.u/dl Ur Leukocyte Esterase Negative Urine WBC (Auto) 4 Urine RBC (Auto) 1 Ur Epithelial Cells Rare Urine Mucus Rare Influenza A (Rapid) Influenza B (Rapid) 07/19/18 07/19/18 07/19/18 18:25 21:50 22:30 WBC RBC Hgb Hct MCV MCH MCHC RDW Plt Count MPV Absolute Neuts (auto) Neutrophils % Neutrophils % (Manual) Band Neutrophils % Lymphocytes % Lymphocytes % (Manual) Monocytes % Monocytes % (Manual) Eosinophils % Eosinophils % (Manual) Basophils % Basophils % (Manual) Myelocytes % (Man) Promyelocytes % (Man) Blast Cells % (Manual) Nucleated RBC % Metamyelocytes Hypochromia Toxic Granulation Dohle Bodies Platelet Estimate Polychromasia Poikilocytosis Basophilic Stippling Anisocytosis Microcytosis Macrocytosis Spherocytes Sickle Cells Target Cells Tear Drop Cells Ovalocytes Stomatocytes Helmet Cells [place] Bodies [place] Rings [place] Cells Acanthocytes (Spur) Rouleaux Fragmented RBCs Schistocytes PTT (Actin FS) Sodium Potassium Chloride Carbon Dioxide Anion Gap BUN Creatinine Creat Clearance w eGFR Random Glucose Hemoglobin A1c % Lactic Acid 1.5 Calcium Magnesium Total Bilirubin AST ALT Alkaline Phosphatase Troponin I 0.04 Total Protein Albumin Urine Color Urine Appearance Urine pH Ur Specific [place] Urine Protein Urine Glucose (UA) Urine Ketones Urine Blood Urine Nitrite Urine Bilirubin Urine Urobilinogen Ur Leukocyte Esterase Urine WBC (Auto) Urine RBC (Auto) Ur Epithelial Cells Urine Mucus Influenza A (Rapid) Negative Influenza B (Rapid) Negative 07/20/18 07/20/18 07/20/18 09:10 09:10 09:10 WBC 14.6 H RBC 6.97 H Hgb 19.2 H Hct 58.3 H MCV 83.6 MCH 27.6 MCHC 33.0 RDW 15.1 Plt Count 158 MPV 7.5 Absolute Neuts (auto) 11.9 H Neutrophils % 81.1 Neutrophils % (Manual) Band Neutrophils % Lymphocytes % 9.6 D Lymphocytes % (Manual) Monocytes % 8.7 Monocytes % (Manual) Eosinophils % 0.3 D Eosinophils % (Manual) Basophils % 0.3 Basophils % (Manual) Myelocytes % (Man) Promyelocytes % (Man) Blast Cells % (Manual) Nucleated RBC % 0 Metamyelocytes Hypochromia Toxic Granulation Dohle Bodies Platelet Estimate Polychromasia Poikilocytosis Basophilic Stippling Anisocytosis Microcytosis Macrocytosis Spherocytes Sickle Cells Target Cells Tear Drop Cells Ovalocytes Stomatocytes Helmet Cells [place] Bodies [place] Rings Lizeth Cells Acanthocytes (Spur) Rouleaux Fragmented RBCs Schistocytes PTT (Actin FS) 37.2 H Sodium Cancelled Potassium Cancelled Chloride Cancelled Carbon Dioxide Cancelled Anion Gap Cancelled BUN Cancelled Creatinine Cancelled Creat Clearance w eGFR Cancelled Random Glucose Cancelled Hemoglobin A1c % Lactic Acid Calcium Cancelled Magnesium Cancelled Total Bilirubin Cancelled AST Cancelled ALT Cancelled Alkaline Phosphatase Cancelled Troponin I Total Protein Cancelled Albumin Cancelled Urine Color Urine Appearance Urine pH Ur Specific [place] Urine Protein Urine Glucose (UA) Urine Ketones Urine Blood Urine Nitrite Urine Bilirubin Urine Urobilinogen Ur Leukocyte Esterase Urine WBC (Auto) Urine RBC (Auto) Ur Epithelial Cells Urine Mucus Influenza A (Rapid) Influenza B (Rapid) 07/20/18 07/20/18 09:10 11:50 WBC RBC Hgb Hct MCV MCH MCHC RDW Plt Count MPV Absolute Neuts (auto) Neutrophils % Neutrophils % (Manual) Band Neutrophils % Lymphocytes % Lymphocytes % (Manual) Monocytes % Monocytes % (Manual) Eosinophils % Eosinophils % (Manual) Basophils % Basophils % (Manual) Myelocytes % (Man) Promyelocytes % (Man) Blast Cells % (Manual) Nucleated RBC % Metamyelocytes Hypochromia Toxic Granulation Dohle Bodies Platelet Estimate Polychromasia Poikilocytosis Basophilic Stippling Anisocytosis Microcytosis Macrocytosis Spherocytes Sickle Cells Target Cells Tear Drop Cells Ovalocytes Stomatocytes Helmet Cells [place] Bodies [place] Rings Lizeth Cells Acanthocytes (Spur) Rouleaux Fragmented RBCs Schistocytes PTT (Actin FS) Sodium 134 L Potassium 3.9 Chloride 97 L Carbon Dioxide 29 Anion Gap 8 BUN 20 H Creatinine 1.2 Creat Clearance w eGFR > 60 Random Glucose 80 Hemoglobin A1c % 5.7 Lactic Acid Calcium 8.6 Magnesium 2.0 Total Bilirubin 1.1 H AST 47 H ALT 33 Alkaline Phosphatase 83 Troponin I 0.08 H Total Protein 7.2 Albumin 3.2 L Urine Color Urine Appearance Urine pH Ur Specific [place] Urine Protein Urine Glucose (UA) Urine Ketones Urine Blood Urine Nitrite Urine Bilirubin Urine Urobilinogen Ur Leukocyte Esterase Urine WBC (Auto) Urine RBC (Auto) Ur Epithelial Cells Urine Mucus Influenza A (Rapid) Influenza B (Rapid) Active Medications Generic Name Dose Route Start Last Admin Trade Name Freq PRN Reason Stop Dose Admin Albuterol/Ipratropium 1 amp 07/20/18 00:00 07/20/18 12:13 Duoneb - NEB 1 amp RQ4H SHANTELLE Administration Amlodipine Besylate 10 mg 07/20/18 10:00 07/20/18 11:23 Norvasc - PO 10 mg DAILY SHANTELLE Administration Heparin Sodium (Porcine) 5,000 unit 07/20/18 06:00 07/20/18 06:35 Heparin - SQ 5,000 unit TID SHANTELLE Administration Hydrochlorothiazide 25 mg 07/20/18 10:00 07/20/18 11:23 Hctz - PO 25 mg DAILY SHANTELLE Administration Sodium Chloride 1,000 mls @ 75 mls/hr 07/19/18 23:30 07/20/18 01:10 Normal Saline - IV 75 mls/hr ASDIR SHANTELLE Administration Aztreonam 1 gm/ Dextrose 50 mls @ 100 mls/hr 07/20/18 13:00 IVPB Q8H-IV SHANTELLE Protocol Pantoprazole Sodium 40 mg 07/20/18 10:00 07/20/18 11:23 Protonix - PO 40 mg DAILY SHANTELLE Administration ASSESSMENT/PLAN: Patient is a 63 year old male with a significant past medical history of hypertension, hepatitis c, bilateral lower extremity edema, polysubstance abuse , IVDU x 20 years ago, none recent, referred to [facility] for detox of opiate use. Reports 4-5 bags via inhalation. Patient was at detox at [facility] but was sent to the ER after he c/o of crushing chest pain and became lethargic and diaphoretic. He was given Nitroglycerin 0.4mg x 2 sublingual but pain did not subside. An EKG at [facility] was reported to have t wave abnormality with possible inferolateral ischemia. While he was in the Ed he c/o of chest pain, nausea, vomiting. Abdomen CT shows non specific mosaic opacity of the lungs with possible groundglass opacity in the lingula. Platelike atelectasis changes. A left renal mass was also found. EKG shows new t wave inversion in inferior leads. Patient being admitted to rule out ACS. He is also noted to have an elevated WBC. septic workup initiated. ------- problem list bilateral lower ext edema polysubstance abuse IVDU Heroin use Renal mass sepsis rule out acs --------- Imaging: abd/ct/pelvis: kidneys with large peripherally calcified left posterior renal mass measuring 8.8 cm in ap dimension 9.2cm in width. tumor lesion suspected. renal u/s a 9.4 cm left posterior renal cortical lesion seen with prominent peripheral rim calcification. ID: Meets SIRS criteria/early sepsis/possible pneumonia WBC elevated. tachycardia. tachypnea. Presents with shortness of breath, chronic cough, fatigue. chest pain. Blood and urine cultures ordered and sent before antibiotic initiated-pending CT shows non specific mosaic opacity of the lungs with possible groundglass opacity PCN allergy Started on Azactam per ID On duonebs, supplemental oxygen. monitor pulse ox. Card: Chest pain/shortness of breath Rule out ACS trops negative echo reviewed monitor on tele will need stress test Hypertension. BP remains elevated. BB to be initiated once urine negative for cocaine. Psyche Polysubstance abuse, heroin abuse On Methadone taper, given last taper dose today Renal: Large Calcified left posterior renal mass noted on imaging ultrasound noted Urology consulted fen gently hydrate start low salt diet as tolerated monitor electrolytes prophy heparin tid Visit type - Emergency Visit Emergency Visit: Yes ED Registration Date: 07/19/18 Care time: The patient presented to the Emergency Department on the above date and was hospitalized for further evaluation of their emergent condition. - New Patient This patient is new to me today: No - Critical Care Critical Care patient: No - Discharge Referral Physician Referral: Deon Sotomayor MD ([facility])
--- NOTE | 2018-07-20 14:35 | CON.NEP ---
Consult Consult Specialty:: nephrology Referred by:: dr alvarado Reason for Consultation:: left renal mass - History of Present Illness Chief Complaint: admitted for detox History of Present Illness: admitted for detox found to have a large left renal mass on sono and abd ct scan he has been told of this in the past (december 2017) but he did not follow up labs show rbc and wbc in urine - History Source History Provided By: Patient, Medical Record Limitations to Obtaining History: No Limitations - Alcohol/Substance Use Hx Alcohol Use: No - Smoking History Smoking history: Current every day smoker Have you smoked in the past 12 months: Yes Aproximately how many cigarettes per day: 10 Home Medications - Allergies Allergies/Adverse Reactions: Allergies Allergy/AdvReac Type Severity Reaction Status Date / Time bee venom protein (honey bee) Allergy Severe Swelling Verified 07/19/18 07:57 penicillin G Allergy Severe Swelling Verified 07/19/18 07:57 - Home Medications Home Medications: Ambulatory Orders Amlodipine/Atorvastatin [Amlodipine-Atorvast 10-10 mg] 10 mg PO DAILY 12/15/17 Amlodipine Besylate 10 mg PO DAILY 30 Days #30 tablet 12/19/17 Hydrochlorothiazide 25 mg PO DAILY 30 Days #30 tablet 12/19/17 Family Disease History - Family Disease History Family Disease History: Diabetes: Grandparent, Mother, Other: Father Nephrology Consult - Height Height: 5 ft 9 in - Weight Weight: 300 lb - BMI Body Mass Index (BMI): 44.3 - Lab Results CBC,BMP: CBC, BMP 07/20/18 09:10 07/20/18 11:50 Anion Gap: Anion Gap Anion Gap 8 MMOL/L (8-16) 07/20/18 11:50 - Physical Examination Vital Signs: Vital Signs Temperature 98.2 F 07/20/18 10:52 Pulse Rate 102 H 07/20/18 10:52 Respiratory Rate 20 07/20/18 13:21 Blood Pressure 168/108 H 07/20/18 10:52 O2 Sat by Pulse Oximetry (%) 98 07/20/18 13:21 Assessment/Plan admitted for detox found to have a right renal mass on sono and abd ct scan he has been told of this in the past (december 2017) but he did not follow up The mass is peripherally calcified and has likelihood of malignancy labs show rbc and wbc in urine hemoconcentration prerenal azotemia urine has 1 + protein and trace blood needs to be evaluated by Urology
--- NOTE | 2018-07-20 15:29 | CON.CARD ---
Consult Consult Specialty:: cardio - History of Present Illness Chief Complaint: cp History of Present Illness: 63 year old male sent for CP from [facility] in setting of detox admit for heroin abuse. Pt described crushing chest pain on DOA, and became lethargic and diaphoretic per staff at the center. He was given Nitroglycerin 0.4mg x 2 which reportedly did not alleviate the pain. An EKG at [facility] allegedly showed t wave abnormality concerning for inferolateral ischemia. in ED here, + c/o chest pain, nausea, vomiting. Abdomen CT showed left renal mass. also noted in lungs was non-specific mosaic opacity and possible groundglass opacity in the lingula. Sat.s normal pt denies back pain or "tearing" sensation at any time. no cp today. feels malaise which he states is c/w his heroin withdrawal sx no palpitations. PMH: HTN polysubstance abuse incl remote IVDU father + weak heart, ? chf denies etoh - Alcohol/Substance Use Hx Alcohol Use: No - Smoking History Smoking history: Current every day smoker Have you smoked in the past 12 months: Yes Aproximately how many cigarettes per day: 10 Home Medications - Allergies Allergies/Adverse Reactions: Allergies Allergy/AdvReac Type Severity Reaction Status Date / Time bee venom protein (honey bee) Allergy Severe Swelling Verified 07/19/18 07:57 penicillin G Allergy Severe Swelling Verified 07/19/18 07:57 - Home Medications Home Medications: Ambulatory Orders Amlodipine/Atorvastatin [Amlodipine-Atorvast 10-10 mg] 10 mg PO DAILY 12/15/17 Amlodipine Besylate 10 mg PO DAILY 30 Days #30 tablet 12/19/17 Hydrochlorothiazide 25 mg PO DAILY 30 Days #30 tablet 12/19/17 Family Disease History - Family Disease History Family Disease History: Diabetes: Grandparent, Mother, Other: Father Review of Systems - Review of Systems Constitutional: reports: Malaise. denies: Chills, Fever Eyes: denies: Eye Pain HENT: denies: Nasal Congestion Neck: denies: Stiffness Cardiovascular: denies: Palpitations Respiratory: denies: Orthopnea, PND Gastrointestinal: denies: Diarrhea, Rectal Bleeding Genitourinary: denies: Burning, Hematuria Musculoskeletal: denies: Muscle Pain Integumentary: denies: Rash Neurological: denies: Numbness, Seizure, Syncope Endocrine: denies: Excessive Sweating Hematology/Lymphatic: denies: Excessive Bleeding Vital Signs: Vital Signs Temperature 98.2 F 07/20/18 10:52 Pulse Rate 102 H 07/20/18 10:52 Respiratory Rate 20 07/20/18 13:21 Blood Pressure 168/108 H 07/20/18 10:52 O2 Sat by Pulse Oximetry (%) 98 07/20/18 13:21 Constitutional: Yes: Well Nourished, No Distress Eyes: No: Sclera Icterus HENT: No: Nasal Congestion Neck: No: Decreased ROM Respiratory: Yes: CTA Bilaterally. No: Accessory Muscle Use, Rales, Wheezes Gastrointestinal: Yes: Normal Bowel Sounds. No: Distention, Hepatomegaly, Palpable Mass, Tenderness Cardiovascular: Yes: Regular Rate and Rhythm JVD: No Carotid Bruit: No PMI: Non-Displaced Heart Sounds: Yes: S1, S2. No: Gallop Murmur: No: Systolic Murmur, Diastolic Murmur Musculoskeletal: Yes: Other (No kyphosis) Extremities: No: Cold, Cyanosis Edema: No Peripheral Pulses: 2+ Left Carotid, 2+ Right Carotid, 2+ Left Doralis Pedis, 2+ Right Dorsalis Pedis Integumentary: No: Jaundice Neurological: Yes: Alert, Oriented (x3) Psychiatric: No: Agitated - Other Data Labs, Other Data: CBC, BMP 07/20/18 09:10 07/20/18 11:50 INR, PTT INR 1.20 (0.83-1.09) H 07/19/18 08:33 Troponin, BNP 07/19/18 07/20/18 18:25 11:50 Troponin I 0.04 0.08 H Troponin, BNP 07/19/18 07/20/18 18:25 11:50 Troponin I 0.04 0.08 H Laboratory Tests 07/19/18 07/19/18 07/19/18 08:33 09:25 18:25 WBC 23.8 H Hgb Plt Count Sodium Potassium Carbon Dioxide BUN Creatinine AST ALT Troponin I 0.04 0.04 Albumin 3.6 Lipase 70 L 07/20/18 07/20/18 09:10 11:50 WBC 14.6 H Hgb 19.2 H Plt Count 158 Sodium 134 L Potassium 3.9 Carbon Dioxide 29 BUN 20 H Creatinine 1.2 AST 47 H ALT 33 Troponin I 0.08 H Albumin 3.2 L Lipase Assessment/Plan Echo 07/20/18: TDS study, wall motion not well seen. IW and inferolat wall appear sev hypo in mult views, remainder appears moderately hypo. Overall EF mod -sev reduced. RV tds. nl LA. valves WNL. normal ao root, no peric effusion. CXR x 2: no widened mediastinum. clear lungs/pleura (excessive overlying soft tissue markings) ECG 07/17: NSR, LVH with repol abn.s--more prominent than prior ecg ECG 07/19 x 2: no signif change tele: sinus tach chest pain, LV systolic dysfunction: -occurred in setting of detox from opiate abuse -not ntg responsive, by report -trop 0.04 x 2-->0.8 is NOT c/w NSTEMI -ECG with no ischemic changes vs baseline LVH assctd repol abnormalities -CXR x 2 without findings of CHF. LV hypokinesis is diffuse, ? new vs old. pt at risk for hypertensive CMP given his bp's here, and he admits to no routine phys exams with MD for many yrs -bp control as doing -check BNP -check U tox for cocaine to confirm (he denies)--if negative, start carvedilol for BP and low EF -denies sob, appears euvolemic--no lasix -needs inpt pharm vasodilator stress test to r/o isch cmp once bp better controlled--? monday HTN: -bp moderately elevated today -home meds (amlod 10, hctz 25) have been resumed here -add valsartan today (also for low EF) -add carvedilol once utox neg cocaine leukocytosis: -afeb -nonspecific lung findings on CT scan -infectious w/u ongoing, per hospitalist renal mass: -suspected tumor radiographically -w/u per renal/
[2018-07-20] MEDS: VALSARTAN 160 MG TABLET (UD) PO SCH (17:22)
[2018-07-20] MEDS: AZTREONAM 1 GM in DEXTROSE 5%-WATER - 50 ML IVPB SCH ×2 (17:22→20:30)
[2018-07-20] MEDS: SODIUM CHLORIDE 1,000 ML IV SCH (17:35)
[2018-07-20] MEDS ORDERED: METHADONE HCL 5 MG TABLET (FOR DETOX USE ONLY) PO ONE (18:00)
[2018-07-20] MEDS ORDERED: METHADONE HCL 5 MG TABLET PO ONE (19:45)
[2018-07-20] MEDS ORDERED: hydrALAZINE HCL 10 MG TABLET PO ONE (21:42)
[2018-07-20] MEDS ORDERED: MELATONIN 5 MG TABLETS PO ONE (23:00)
[2018-07-21] MEDS: ALBUTEROL SO4 2.5/IPRATROPIUM 0.5 INH SOL 3 ML VIAL.NEB. NEB SCH ×6 (01:05→20:27)
[2018-07-21] MEDS: AZTREONAM 1 GM in DEXTROSE 5%-WATER - 50 ML IVPB SCH ×3 (03:00→18:00)
[2018-07-21] MEDS ORDERED: PT OWN MED DRAWER 7, Y5N ONE ×2 (03:11→14:51)
[2018-07-21] MEDS: HEPARIN NA (PORCINE) 5,000 UNITS/ML 1ML VIAL SQ SCH ×3 (06:37→22:54)
[2018-07-21 06:58] LABS: HEMATOCRIT 53.9 % (35.4-49); HEMOGLOBIN 17.7 GM/dL (11.7-16.9); MCH 27.5 pg (25.7-33.7); MCHC 32.8 g/dl (32.0-35.9); MEAN CELL VOLUME 83.9 fl (80-96); MEAN PLT VOLUME 7.7 fl (7.5-11.1); PLATELET COUNT 153 K/MM3 (134-434); RBC 6.43 M/mm3 (4.00-5.60); WHITE BLOOD COUNT 8.9 K/mm3 (4.0-10.0)
[2018-07-21] MEDS ORDERED: MELATONIN 5 MG TABLETS PO PRN (07:30)
[2018-07-21 08:03] LABS: ALBUMIN 3.5 g/dl (3.4-5.0); ALK PHOS 80 U/L (45-117); ANION GAP 13 MMOL/L (8-16); BILIRUBIN,TOTAL 1.3 mg/dL (0.2-1); BLOOD UREA NITROGEN 19 mg/dL (7-18); CHLORIDE 95 mmol/L (98-107); CO2 26 mmol/L (21-32); CREATININE 1.3 mg/dL (0.55-1.3); GLUCOSE,RANDOM 79 mg/dL (74-106); POTASSIUM 3.8 mmol/L (3.5-5.1); SGOT/AST 78 U/L (15-37); SGPT/ALT 39 U/L (13-61); SODIUM 134 mmol/L (136-145); TOT PROT 7.5 g/dl (6.4-8.2)
[2018-07-21 09:49] LABS: COCAINE, UR NEGATIVE ng/ml (CUTOFF=300); PHENCYCLIDINE,URINE NEGATIVE ng/ml (CUTOFF=25); URINE AMPHETAMINES NEGATIVE ng/ml (CUTOFF=500); URINE BARBITURATES NEGATIVE ng/ml (CUTOFF=200); URINE BENZODIAZEPINES NEGATIVE ng/ml (CUTOFF=200)
[2018-07-21 10:03] LABS: METHADONE, UR POSITIVE ng/ml (CUTOFF=300); OPIATES, URI POSITIVE ng/ml (CUTOFF=300)
[2018-07-21] MEDS: VALSARTAN 160 MG TABLET (UD) PO SCH (10:05)
[2018-07-21] MEDS: HYDROCHLOROTHIAZIDE 25 MG TABLET (FP) PO SCH (10:05)
[2018-07-21] MEDS: amLODIPine BESYLATE 10 MG TABLET (FP) PO SCH (10:05)
[2018-07-21] MEDS: PANTOPRAZOLE 40 MG TABLET (FP) PO SCH (10:05)
--- NOTE | 2018-07-21 11:24 | CON.GU ---
Consult - History of Present Illness History of Present Illness: 63 yo male admitted with CP, found to have incidental 9 cm left renal mass on Noncontrast CT.No flank pain/hematuria - Alcohol/Substance Use Hx Alcohol Use: No - Smoking History Smoking history: Current every day smoker Have you smoked in the past 12 months: Yes Aproximately how many cigarettes per day: 10 Home Medications - Allergies Allergies/Adverse Reactions: Allergies Allergy/AdvReac Type Severity Reaction Status Date / Time bee venom protein (honey bee) Allergy Severe Swelling Verified 07/19/18 07:57 penicillin G Allergy Severe Swelling Verified 07/19/18 07:57 - Home Medications Home Medications: Ambulatory Orders Amlodipine/Atorvastatin [Amlodipine-Atorvast 10-10 mg] 10 mg PO DAILY 12/15/17 Amlodipine Besylate 10 mg PO DAILY 30 Days #30 tablet 12/19/17 Hydrochlorothiazide 25 mg PO DAILY 30 Days #30 tablet 12/19/17 Family Disease History - Family Disease History Family Disease History: Diabetes: Grandparent, Mother, Other: Father Review of Systems - Review of Systems Genitourinary: reports: No Symptoms Physical Exam- Vital Signs: Vital Signs Temperature 97.4 F L 07/21/18 10:00 Pulse Rate 93 H 07/21/18 10:00 Respiratory Rate 22 H 07/21/18 10:00 Blood Pressure 169/96 07/21/18 10:00 O2 Sat by Pulse Oximetry (%) 96 07/21/18 09:00 Renal/: Yes: Other (no hematuria, no CVAT) Labs: CBC, BMP 07/21/18 05:30 07/21/18 05:30 Imaging - Results Cat Scan: Report Reviewed Problem List - Problems (1) Left renal mass Assessment/Plan: will need repeat CT with IV contrast Code(s): N28.89 - OTHER SPECIFIED DISORDERS OF KIDNEY AND URETER
--- NOTE | 2018-07-21 14:29 | PN ---
Progress Note, Physician History of Present Illness: patient wants to go home explained to him importance of stayin wbc has normalized otherwise comfortable - Current Medication List Current Medications: Active Medications Albuterol/Ipratropium (Duoneb -) 1 amp NEB RQ4H [facility] Last Admin: 07/21/18 11:52 Dose: Not Given Amlodipine Besylate (Norvasc -) 10 mg PO DAILY [facility] Last Admin: 07/21/18 10:05 Dose: 10 mg Heparin Sodium (Porcine) (Heparin -) 5,000 unit SQ TID [facility] Last Admin: 07/21/18 13:16 Dose: 5,000 unit Hydrochlorothiazide (Hctz -) 25 mg PO DAILY [facility] Last Admin: 07/21/18 10:05 Dose: 25 mg Aztreonam 1 gm/ Dextrose 50 mls @ 100 mls/hr IVPB Q8H-IV [facility]; Protocol Last Admin: 07/21/18 03:00 Dose: 100 mls/hr Sodium Chloride (Normal Saline -) 1,000 mls @ 100 mls/hr IV ASDIR [facility] Last Admin: 07/20/18 17:35 Dose: 100 mls/hr Melatonin (Melatonin) 5 mg PO HS PRN PRN Reason: INSOMNIA Pantoprazole Sodium (Protonix -) 40 mg PO DAILY [facility] Last Admin: 07/21/18 10:05 Dose: 40 mg Valsartan (Diovan -) 160 mg PO DAILY [facility] Last Admin: 07/21/18 10:05 Dose: 160 mg - Objective Vital Signs: Vital Signs Temperature 97.4 F L 07/21/18 10:00 Pulse Rate 93 H 07/21/18 10:00 Respiratory Rate 22 H 07/21/18 10:00 Blood Pressure 169/96 07/21/18 10:00 O2 Sat by Pulse Oximetry (%) 96 07/21/18 09:00 Constitutional: Yes: No Distress, Calm, Obese Cardiovascular: Yes: Regular Rate and Rhythm Respiratory: Yes: Regular, CTA Bilaterally Gastrointestinal: Yes: Normal Bowel Sounds, Soft Musculoskeletal: Yes: WNL Extremities: Yes: WNL Neurological: Yes: Alert, Oriented Psychiatric: Yes: Alert, Oriented Labs: CBC, BMP 07/21/18 05:30 07/21/18 05:30 INR, PTT INR 1.20 (0.83-1.09) H 07/19/18 08:33 Assessment/Plan 63 year old male with a significant past medical history of hypertension, hepatitis c, bilateral lower extremity edema, polysubstance abuse, IVDU x 20 years ago, problem list bilateral lower ext edema polysubstance abuse IVDU Heroin use Renal mass sepsis leukocytosis patient looks comfortable, plan continue abx will await for ct chest once done will make a plan rest as per the team
[2018-07-21] MEDS: SODIUM CHLORIDE 1,000 ML IV SCH (15:02)
--- NOTE | 2018-07-21 15:36 | PN ---
Physical Exam: SUBJECTIVE: Patient seen and examined at the bedside. wants to go home. discussed importance of staying for antibiotics, stress test and further imaging to evaluate the renal mass. willing to stay, but wants to leave by tomorrow. informed him that he can sign out AMA. he is thinking about it. OBJECTIVE: Vital Signs Period Temp Pulse Resp BP Sys/Scott Pulse Ox Last 24 Hr 97.4 F-98.0 F 93-98 18-24 146-172/87-114 96-98 GENERAL: Awake, alert, oriented x 3 HEAD: Normal with no signs of trauma, congestion noted EYES: Pupils equal, round and reactive to light EARS, NOSE, THROAT: clear drainage from nares, congested. NECK: Normal range of motion, supple without lymphadenopathy, JVD, or masses. LUNGS: diminished bilaterally HEART: Regular rate and rhythm ABDOMEN: Soft, distended MUSCULOSKELETAL: No CVA tenderness. UPPER EXTREMITIES: . No peripheral edema. LOWER EXTREMITIES: swelling, erythema, inflammation, severe bilateral lower ext edema w/induration, dry skin , hyperkeratotic plaques. No open areas. bilateral lower ext edema. negative for dvt NEUROLOGICAL: fatigue,calm, cooperative PSYCHIATRIC: Cooperative. Laboratory Results - last 24 hr 07/21/18 07/21/18 07/21/18 05:30 05:30 06:50 WBC 8.9 RBC 6.43 H Hgb 17.7 H Hct 53.9 H MCV 83.9 MCH 27.5 MCHC 32.8 RDW 15.0 Plt Count 153 MPV 7.7 Sodium 134 L Potassium 3.8 Chloride 95 L Carbon Dioxide 26 Anion Gap 13 BUN 19 H Creatinine 1.3 Creat Clearance w eGFR 55.58 Random Glucose 79 Calcium 9.0 Total Bilirubin 1.3 H AST 78 H ALT 39 Alkaline Phosphatase 80 Total Protein 7.5 Albumin 3.5 Opiates Screen Positive A* Methadone Screen Positive A* Barbiturate Screen Negative Phencyclidine Screen Negative Ur Amphetamines Screen Negative MDMA (Ecstasy) Screen Negative Benzodiazepines Screen Negative Cocaine Screen Negative U Marijuana (THC) Screen Negative Active Medications Generic Name Dose Route Start Last Admin Trade Name Freq PRN Reason Stop Dose Admin Albuterol/Ipratropium 1 amp 07/20/18 00:00 07/21/18 11:52 Duoneb - NEB Not Given RQ4H [facility] Amlodipine Besylate 10 mg 07/20/18 10:00 07/21/18 10:05 Norvasc - PO 10 mg DAILY [facility] Administration Heparin Sodium (Porcine) 5,000 unit 07/20/18 06:00 07/21/18 13:16 Heparin - SQ 5,000 unit TID [facility] Administration Hydrochlorothiazide 25 mg 07/20/18 10:00 07/21/18 10:05 Hctz - PO 25 mg DAILY [facility] Administration Aztreonam 1 gm/ Dextrose 50 mls @ 100 mls/hr 07/20/18 13:00 07/21/18 15:02 IVPB 100 mls/hr Q8H-IV [facility] Administration Protocol Sodium Chloride 1,000 mls @ 100 mls/hr 07/20/18 14:11 07/21/18 15:02 Normal Saline - IV 100 mls/hr ASDIR [facility] Administration Melatonin 5 mg 07/21/18 07:30 Melatonin PO HS PRN INSOMNIA Pantoprazole Sodium 40 mg 07/20/18 10:00 07/21/18 10:05 Protonix - PO 40 mg DAILY [facility] Administration Valsartan 160 mg 07/20/18 15:45 07/21/18 10:05 Diovan - PO 160 mg DAILY [facility] Administration ASSESSMENT/PLAN: Patient is a 63 year old male with a significant past medical history of hypertension, hepatitis c, bilateral lower extremity edema, polysubstance abuse , IVDU x 20 years ago, none recent, referred to [facility] for detox of opiate use. Reports 4-5 bags via inhalation. Patient was at detox at [facility] but was sent to the ER after he c/o of crushing chest pain and became lethargic and diaphoretic. He was given Nitroglycerin 0.4mg x 2 sublingual but pain did not subside. An EKG at [facility] was reported to have t wave abnormality with possible inferolateral ischemia. While he was in the Ed he c/o of chest pain, nausea, vomiting. Abdomen CT shows non specific mosaic opacity of the lungs with possible groundglass opacity in the lingula. Platelike atelectasis changes. A left renal mass was also found. EKG shows new t wave inversion in inferior leads. Patient being admitted to rule out ACS. He is also noted to have an elevated WBC. septic workup initiated. ------- problem list bilateral lower ext edema polysubstance abuse IVDU Heroin use Renal mass sepsis rule out acs --------- Imaging: abd/ct/pelvis: kidneys with large peripherally calcified left posterior renal mass measuring 8.8 cm in ap dimension 9.2cm in width. tumor lesion suspected. renal u/s a 9.4 cm left posterior renal cortical lesion seen with prominent peripheral rim calcification. CT shows non specific mosaic opacity of the lungs with possible groundglass opacity in the lingula. Platelike atelectasis changes. A left renal mass was also found. ID: Meets SIRS criteria/early sepsis/possible pneumonia WBC elevated. tachycardia. tachypnea. Presents with shortness of breath, chronic cough, fatigue. chest pain. Blood and urine cultures ordered and sent before antibiotic initiated-pending CT shows non specific mosaic opacity of the lungs with possible groundglass opacity. ct chest ordered. Started on Azactam per ID On duonebs, supplemental oxygen. monitor pulse ox. Card: Chest pain/shortness of breath, resolved. For stress test Monday. Hypertension. BP remains elevated. urine negative for cocain, +for opiates ( pt on metadone). Psyche: Polysubstance abuse, heroin abuse On Methadone taper, given last taper dose today Renal/: Large Calcified left posterior renal mass noted on imaging ultrasound noted. for repeat MRI today. Heme: Hemoconcentration. improving with IVF. daily cbc. fen gently hydrate start low salt diet as tolerated monitor electrolytes prophy heparin tid Visit type - Emergency Visit Emergency Visit: Yes ED Registration Date: 07/19/18 Care time: The patient presented to the Emergency Department on the above date and was hospitalized for further evaluation of their emergent condition. - New Patient This patient is new to me today: No - Critical Care Critical Care patient: No - Discharge Referral Referred to [facility] Med P.C.: No
--- NOTE | 2018-07-21 17:47 | PN ---
Progress Note, Physician History of Present Illness: No complaints, feel simproved No chest pains Tele: No arrythmias noted - Current Medication List Current Medications: Active Medications Albuterol/Ipratropium (Duoneb -) 1 amp NEB RQ4H [facility] Last Admin: 07/21/18 15:45 Dose: 1 amp Amlodipine Besylate (Norvasc -) 10 mg PO DAILY [facility] Last Admin: 07/21/18 10:05 Dose: 10 mg Heparin Sodium (Porcine) (Heparin -) 5,000 unit SQ TID [facility] Last Admin: 07/21/18 13:16 Dose: 5,000 unit Hydrochlorothiazide (Hctz -) 25 mg PO DAILY [facility] Last Admin: 07/21/18 10:05 Dose: 25 mg Aztreonam 1 gm/ Dextrose 50 mls @ 100 mls/hr IVPB Q8H-IV [facility]; Protocol Last Admin: 07/21/18 15:02 Dose: 100 mls/hr Sodium Chloride (Normal Saline -) 1,000 mls @ 100 mls/hr IV ASDIR [facility] Last Admin: 07/21/18 15:02 Dose: 100 mls/hr Melatonin (Melatonin) 5 mg PO [facility] Pantoprazole Sodium (Protonix -) 40 mg PO DAILY [facility] Last Admin: 07/21/18 10:05 Dose: 40 mg Valsartan (Diovan -) 160 mg PO DAILY [facility] Last Admin: 07/21/18 10:05 Dose: 160 mg - Objective Vital Signs: Vital Signs Temperature 97.6 F 07/21/18 14:20 Pulse Rate 97 H 07/21/18 14:20 Respiratory Rate 24 H 07/21/18 14:20 Blood Pressure 146/99 07/21/18 14:20 O2 Sat by Pulse Oximetry (%) 96 07/21/18 09:00 Constitutional: Yes: No Distress Eyes: Yes: WNL HENT: Yes: WNL Neck: Yes: WNL Cardiovascular: Yes: Regular Rate and Rhythm Respiratory: Yes: CTA Bilaterally Gastrointestinal: Yes: Normal Bowel Sounds Musculoskeletal: Yes: WNL Extremities: Yes: WNL Edema: Yes Labs: CBC, BMP 07/21/18 05:30 07/21/18 05:30 INR, PTT INR 1.20 (0.83-1.09) H 07/19/18 08:33 Assessment/Plan chest pain, LV systolic dysfunction: -per reports occurred in setting of detox from opiate abuse -trop 0.04 x 2-->0.8 is NOT c/w NSTEMI -ECG with no ischemic changes vs baseline LVH assctd repol abnormalities -CXR x 2 without findings of CHF. LV hypokinesis is diffuse, ? new vs old. pt at risk for hypertensive CMP given his bp's here -check U tox (+) opiates and methadone, negative for cocaine. Will start low dose Coreg -denies sob, appears euvolemic--no lasix -needs inpt pharm vasodilator stress test to r/o isch cmp once bp better controlled--? monday HTN: -bp moderately elevated today -home meds (amlod 10, hctz 25) have been resumed here -On valsartan (also for low EF) -Start carvedilol 3.125mg PO BID leukocytosis: -afeb -nonspecific lung findings on CT scan -infectious w/u ongoing, per hospitalist renal mass: -suspected tumor radiographically -w/u per renal/
[2018-07-21] MEDS ORDERED: MELATONIN 5 MG TABLETS PO SCH (22:00)
[2018-07-21] MEDS: CARVEDILOL 3.125 MG TABLET (FP) PO SCH (22:54)
[2018-07-22] MEDS: ALBUTEROL SO4 2.5/IPRATROPIUM 0.5 INH SOL 3 ML VIAL.NEB. NEB SCH ×6 (00:27→20:28)
[2018-07-22] MEDS ORDERED: PT OWN MED DRAWER 7, Y5N ONE ×3 (03:04→16:57)
[2018-07-22] MEDS: AZTREONAM 1 GM in DEXTROSE 5%-WATER - 50 ML IVPB SCH ×3 (03:06→17:11)
[2018-07-22] MEDS: HEPARIN NA (PORCINE) 5,000 UNITS/ML 1ML VIAL SQ SCH ×3 (06:33→21:49)
[2018-07-22 09:36] LABS: BASO % 0.4 % (0-2.0); EOS % 1.3 % (0-4.5); HEMOGLOBIN 17.3 GM/dL (11.7-16.9); LYMPH % 24.9 % (8-40); MCH 27.3 pg (25.7-33.7); MCHC 32.1 g/dl (32.0-35.9); MEAN PLT VOLUME 7.4 fl (7.5-11.1); MONO % 12.5 % (3.8-10.2); NEUT % 60.9 % (42.8-82.8); PLATELET COUNT 173 K/MM3 (134-434); RBC 6.34 M/mm3 (4.00-5.60); RDW 14.9 % (11.9-15.9); WHITE BLOOD COUNT 8.3 K/mm3 (4.0-10.0)
[2018-07-22 09:56] LABS: ALBUMIN 3.4 g/dl (3.4-5.0); ALK PHOS 73 U/L (45-117); ANION GAP 12 MMOL/L (8-16); BILIRUBIN,TOTAL 1.4 mg/dL (0.2-1); BLOOD UREA NITROGEN 22 mg/dL (7-18); CALCIUM 9.1 mg/dL (8.5-10.1); CHLORIDE 98 mmol/L (98-107); CO2 26 mmol/L (21-32); CREATININE 1.4 mg/dL (0.55-1.3); GLUCOSE,RANDOM 80 mg/dL (74-106); POTASSIUM 3.9 mmol/L (3.5-5.1); SGOT/AST 67 U/L (15-37); SGPT/ALT 40 U/L (13-61); SODIUM 136 mmol/L (136-145); TOT PROT 7.3 g/dl (6.4-8.2)
--- NOTE | 2018-07-22 10:13 | PN ---
Progress Note, Physician History of Present Illness: No CV complaints No chest pain or dyspnea Tele: Sinus tach - Current Medication List Current Medications: Active Medications Albuterol/Ipratropium (Duoneb -) 1 amp NEB RQ4H [facility] Last Admin: 07/22/18 07:45 Dose: 1 amp Amlodipine Besylate (Norvasc -) 10 mg PO DAILY [facility] Last Admin: 07/21/18 10:05 Dose: 10 mg Carvedilol (Coreg -) 3.125 mg PO BID [facility] Last Admin: 07/21/18 22:54 Dose: 3.125 mg Heparin Sodium (Porcine) (Heparin -) 5,000 unit SQ TID [facility] Last Admin: 07/22/18 06:33 Dose: 5,000 unit Hydrochlorothiazide (Hctz -) 25 mg PO DAILY [facility] Last Admin: 07/21/18 10:05 Dose: 25 mg Aztreonam 1 gm/ Dextrose 50 mls @ 100 mls/hr IVPB Q8H-IV [facility]; Protocol Last Admin: 07/22/18 03:06 Dose: 100 mls/hr Sodium Chloride (Normal Saline -) 1,000 mls @ 100 mls/hr IV ASDIR [facility] Last Admin: 07/21/18 15:02 Dose: 100 mls/hr Melatonin (Melatonin) 5 mg PO HS [facility] Last Admin: 07/21/18 22:54 Dose: 5 mg Pantoprazole Sodium (Protonix -) 40 mg PO DAILY [facility] Last Admin: 07/21/18 10:05 Dose: 40 mg Valsartan (Diovan -) 160 mg PO DAILY [facility] Last Admin: 07/21/18 10:05 Dose: 160 mg - Objective Vital Signs: Vital Signs Temperature 97.4 F L 07/22/18 06:30 Pulse Rate 84 07/22/18 06:30 Respiratory Rate 20 07/22/18 06:30 Blood Pressure 139/84 07/22/18 06:30 O2 Sat by Pulse Oximetry (%) 98 07/21/18 20:45 Constitutional: Yes: Well Nourished, No Distress Eyes: Yes: WNL HENT: Yes: WNL Neck: Yes: WNL Cardiovascular: Yes: Regular Rate and Rhythm Respiratory: Yes: CTA Bilaterally Gastrointestinal: Yes: Normal Bowel Sounds Musculoskeletal: Yes: WNL Extremities: Yes: WNL Edema: Yes Labs: CBC, BMP 07/22/18 09:05 07/22/18 09:05 INR, PTT INR 1.20 (0.83-1.09) H 07/19/18 08:33 Assessment/Plan chest pain, LV systolic dysfunction: -per reports occurred in setting of detox from opiate abuse -trop 0.04 x 2-->0.8 is NOT c/w NSTEMI -ECG with no ischemic changes vs baseline LVH assctd repol abnormalities -CXR x 2 without findings of CHF. LV hypokinesis is diffuse, ? new vs old. pt at risk for hypertensive CMP given his bp's here -check U tox (+) opiates and methadone, negative for cocaine. Will start low dose Coreg -denies sob, appears euvolemic--no lasix -needs inpt pharm vasodilator stress test to r/o isch cmp once bp better controlled--? monday -07/22: Will increase coreg to 6.25mg PO BID HTN: -bp moderately elevated today -home meds (amlod 10, hctz 25) have been resumed here -On valsartan (also for low EF) -Increased carvedilol 6.25mg PO BID leukocytosis: -afeb -nonspecific lung findings on CT scan -infectious w/u ongoing, per hospitalist renal mass: -suspected tumor radiographically -w/u per renal/
[2018-07-22] MEDS: PANTOPRAZOLE 40 MG TABLET (FP) PO SCH (10:29)
[2018-07-22] MEDS: VALSARTAN 160 MG TABLET (UD) PO SCH (10:29)
[2018-07-22] MEDS: amLODIPine BESYLATE 10 MG TABLET (FP) PO SCH (10:29)
[2018-07-22] MEDS: HYDROCHLOROTHIAZIDE 25 MG TABLET (FP) PO SCH (10:30)
[2018-07-22] MEDS: CARVEDILOL 6.25 MG TABLET (FP) PO SCH ×2 (10:30→21:49)
[2018-07-22] MEDS: CARVEDILOL 3.125 MG TABLET (FP) PO SCH (10:31)
--- NOTE | 2018-07-22 13:50 | PN ---
Progress Note, Physician History of Present Illness: stable no new issues wants to go home - Current Medication List Current Medications: Active Medications Albuterol/Ipratropium (Duoneb -) 1 amp NEB RQ4H [facility] Last Admin: 07/22/18 07:45 Dose: 1 amp Amlodipine Besylate (Norvasc -) 10 mg PO DAILY [facility] Last Admin: 07/22/18 10:29 Dose: 10 mg Carvedilol (Coreg -) 6.25 mg PO BID [facility] Last Admin: 07/22/18 10:30 Dose: 6.25 mg Heparin Sodium (Porcine) (Heparin -) 5,000 unit SQ TID [facility] Last Admin: 07/22/18 06:33 Dose: 5,000 unit Hydrochlorothiazide (Hctz -) 25 mg PO DAILY [facility] Last Admin: 07/22/18 10:30 Dose: 25 mg Aztreonam 1 gm/ Dextrose 50 mls @ 100 mls/hr IVPB Q8H-IV [facility]; Protocol Last Admin: 07/22/18 03:06 Dose: 100 mls/hr Sodium Chloride (Normal Saline -) 1,000 mls @ 100 mls/hr IV ASDIR [facility] Last Admin: 07/21/18 15:02 Dose: 100 mls/hr Melatonin (Melatonin) 5 mg PO HS [facility] Last Admin: 07/21/18 22:54 Dose: 5 mg Pantoprazole Sodium (Protonix -) 40 mg PO DAILY [facility] Last Admin: 07/22/18 10:29 Dose: 40 mg Valsartan (Diovan -) 160 mg PO DAILY [facility] Last Admin: 07/22/18 10:29 Dose: 160 mg - Objective Vital Signs: Vital Signs Temperature 98 F 07/22/18 10:00 Pulse Rate 82 07/22/18 10:00 Respiratory Rate 20 07/22/18 10:00 Blood Pressure 144/76 07/22/18 10:00 O2 Sat by Pulse Oximetry (%) 98 07/21/18 20:45 Constitutional: Yes: No Distress, Calm, Obese Cardiovascular: Yes: Regular Rate and Rhythm Respiratory: Yes: Regular, On Nasal O2 Gastrointestinal: Yes: Normal Bowel Sounds, Soft Musculoskeletal: Yes: WNL Extremities: Yes: WNL Neurological: Yes: Alert, Oriented Psychiatric: Yes: Alert Labs: CBC, BMP 07/22/18 09:05 07/22/18 09:05 INR, PTT INR 1.20 (0.83-1.09) H 07/19/18 08:33 Assessment/Plan 63 year old male with a significant past medical history of hypertension, hepatitis c, bilateral lower extremity edema, polysubstance abuse, IVDU x 20 years ago, none recent, referred to [facility] for detox of opiate use. Reports 4-5 bags via inhalation. Patient was at detox at [facility] but was sent to the ER after he c/o of crushing chest pain and became lethargic and diaphoretic. He was given Nitroglycerin 0.4mg x 2 sublingual but pain did not subside. problem list bilateral lower ext edema polysubstance abuse IVDU Heroin use Renal mass sepsis plan will start patient on abx rest continue current mgmt imaging studies as per urology rest s per the team
[2018-07-22] MEDS ORDERED: ACETAMINOPHEN 325 MG TABLET (FP) PO PRN (16:03)
[2018-07-22] MEDS: LIDOCAINE 5% TOPICAL PATCH TP SCH (17:11)
[2018-07-22] MEDS: KETOROLAC TROMETHAMINE 10 MG TABLET PO SCH (17:12)
--- NOTE | 2018-07-22 17:38 | PN ---
Progress Note (short form) - Note Progress Note: substance abuse in detox s/p chest pain being eval incidental left renal mass prerenal azotemia Active Medications Acetaminophen (Tylenol -) 650 mg PO Q6H PRN PRN Reason: PAIN LEVEL 7 - 10 Albuterol/Ipratropium (Duoneb -) 1 amp NEB RQ4H [facility] Last Admin: 07/22/18 15:46 Dose: Not Given Amlodipine Besylate (Norvasc -) 10 mg PO DAILY [facility] Last Admin: 07/22/18 10:29 Dose: 10 mg Carvedilol (Coreg -) 6.25 mg PO BID [facility] Last Admin: 07/22/18 10:30 Dose: 6.25 mg Heparin Sodium (Porcine) (Heparin -) 5,000 unit SQ TID [facility] Last Admin: 07/22/18 17:11 Dose: Not Given Hydrochlorothiazide (Hctz -) 25 mg PO DAILY [facility] Last Admin: 07/22/18 10:30 Dose: 25 mg Aztreonam 1 gm/ Dextrose 50 mls @ 100 mls/hr IVPB Q8H-IV [facility]; Protocol Last Admin: 07/22/18 17:11 Dose: 100 mls/hr Sodium Chloride (Normal Saline -) 1,000 mls @ 100 mls/hr IV ASDIR [facility] Last Admin: 07/21/18 15:02 Dose: 100 mls/hr Ketorolac Tromethamine (Toradol) 10 mg PO Q6HPO [facility] Stop: 07/27/18 16:14 Last Admin: 07/22/18 17:12 Dose: 10 mg Lidocaine (Lidoderm Patch -) 1 patch TP DAILY [facility] Last Admin: 07/22/18 17:11 Dose: 1 patch Melatonin (Melatonin) 5 mg PO HS [facility] Last Admin: 07/21/18 22:54 Dose: 5 mg Miscellaneous (Lidoderm Patch Removal) 1 each MC DAILY@2200 [facility] Pantoprazole Sodium (Protonix -) 40 mg PO DAILY [facility] Last Admin: 07/22/18 10:29 Dose: 40 mg Valsartan (Diovan -) 160 mg PO DAILY [facility] Last Admin: 07/22/18 10:29 Dose: 160 mg Last Vital Signs Temp Pulse Resp BP Pulse Ox 98 F 81 20 98/70 98 07/22/18 14:00 07/22/18 14:00 07/22/18 14:00 07/22/18 14:00 07/22/18 09:00 c/o loose bms, no definite withdrawal sx alert in nad Lungs clear Heart reg Abd soft nontender ext no edema 07/20/18 07/21/18 07/22/18 11:50 05:30 09:05 Sodium 134 L 134 L 136 Potassium 3.9 3.8 3.9 BUN 20 H 19 H 22 H Creatinine 1.2 1.3 1.4 H Albumin 3.2 L 3.5 3.4 IMP- cristin prerenal hemoconcentration he's fearful of drinking more fluids because he's having loose bms Plan- continue increased hydration iv
--- NOTE | 2018-07-22 20:38 | PN ---
Physical Exam: SUBJECTIVE: Patient seen and examined at the bedside. OBJECTIVE: Vital Signs Period Temp Pulse Resp BP Sys/Scott Pulse Ox Last 24 Hr 97.4 F-98 F 78-86 20-20 98-155/70-92 98-98 GENERAL: Awake, alert, oriented x 3 HEAD: Normal with no signs of trauma, congestion noted EYES: Pupils equal, round and reactive to light EARS, NOSE, THROAT: clear drainage from nares, congested. NECK: Normal range of motion, supple without lymphadenopathy, JVD, or masses. LUNGS: diminished bilaterally HEART: Regular rate and rhythm ABDOMEN: Soft, distended MUSCULOSKELETAL: No CVA tenderness. UPPER EXTREMITIES: . No peripheral edema. LOWER EXTREMITIES: swelling, erythema, inflammation, severe bilateral lower ext edema w/induration, dry skin , hyperkeratotic plaques. No open areas. bilateral lower ext edema. negative for dvt NEUROLOGICAL: fatigue,calm, cooperative PSYCHIATRIC: Cooperative Laboratory Results - last 24 hr 07/22/18 07/22/18 09:05 09:05 WBC 8.3 RBC 6.34 H Hgb 17.3 H Hct 54.0 H MCV 85.0 MCH 27.3 MCHC 32.1 RDW 14.9 Plt Count 173 MPV 7.4 L Absolute Neuts (auto) 5.0 Neutrophils % 60.9 D Lymphocytes % 24.9 D Monocytes % 12.5 H Eosinophils % 1.3 D Basophils % 0.4 Nucleated RBC % 0 Sodium 136 Potassium 3.9 Chloride 98 Carbon Dioxide 26 Anion Gap 12 BUN 22 H Creatinine 1.4 H Creat Clearance w eGFR 51.02 Random Glucose 80 Calcium 9.1 Total Bilirubin 1.4 H AST 67 H ALT 40 Alkaline Phosphatase 73 Total Protein 7.3 Albumin 3.4 Active Medications Generic Name Dose Route Start Last Admin Trade Name Freq PRN Reason Stop Dose Admin Acetaminophen 650 mg 07/22/18 16:03 Tylenol - PO Q6H PRN PAIN LEVEL 7 - 10 Albuterol/Ipratropium 1 amp 07/20/18 00:00 07/22/18 20:28 Duoneb - NEB 1 amp RQ4H [facility] Administration Amlodipine Besylate 10 mg 07/20/18 10:00 07/22/18 10:29 Norvasc - PO 10 mg DAILY [facility] Administration Carvedilol 6.25 mg 07/22/18 10:15 07/22/18 10:30 Coreg - PO 6.25 mg BID [facility] Administration Heparin Sodium (Porcine) 5,000 unit 07/20/18 06:00 07/22/18 17:11 Heparin - SQ Not Given TID [facility] Hydrochlorothiazide 25 mg 07/20/18 10:00 07/22/18 10:30 Hctz - PO 25 mg DAILY [facility] Administration Aztreonam 1 gm/ Dextrose 50 mls @ 100 mls/hr 07/20/18 13:00 07/22/18 17:11 IVPB 100 mls/hr Q8H-IV [facility] Administration Protocol Sodium Chloride 1,000 mls @ 100 mls/hr 07/20/18 14:11 07/21/18 15:02 Normal Saline - IV 100 mls/hr ASDIR [facility] Administration Ketorolac Tromethamine 10 mg 07/22/18 16:15 07/22/18 17:12 Toradol PO 07/27/18 16:14 10 mg Q6HPO [facility] Administration Lidocaine 1 patch 07/22/18 16:15 07/22/18 17:11 Lidoderm Patch - TP 1 patch DAILY [facility] Administration Melatonin 5 mg 07/21/18 22:00 07/21/18 22:54 Melatonin PO 5 mg HS [facility] Administration Miscellaneous 1 each 07/22/18 22:00 Lidoderm Patch Removal MC DAILY@2200 [facility] Pantoprazole Sodium 40 mg 07/20/18 10:00 07/22/18 10:29 Protonix - PO 40 mg DAILY [facility] Administration Valsartan 160 mg 07/20/18 15:45 07/22/18 10:29 Diovan - PO 160 mg DAILY [facility] Administration ASSESSMENT/PLAN: Patient is a 63 year old male with a significant past medical history of hypertension, hepatitis c, bilateral lower extremity edema, polysubstance abuse , IVDU x 20 years ago, none recent, referred to [facility] for detox of opiate use. Reports 4-5 bags via inhalation. Patient was at detox at [facility] but was sent to the ER after he c/o of crushing chest pain and became lethargic and diaphoretic. He was given Nitroglycerin 0.4mg x 2 sublingual but pain did not subside. An EKG at [facility] was reported to have t wave abnormality with possible inferolateral ischemia. While he was in the Ed he c/o of chest pain, nausea, vomiting. Abdomen CT shows non specific mosaic opacity of the lungs with possible groundglass opacity in the lingula. Platelike atelectasis changes. A left renal mass was also found. EKG shows new t wave inversion in inferior leads. Patient being admitted to rule out ACS. He is also noted to have an elevated WBC. septic workup initiated. ------- problem list bilateral lower ext edema polysubstance abuse IVDU Heroin use Renal mass sepsis rule out acs --------- Imaging: abd/ct/pelvis: kidneys with large peripherally calcified left posterior renal mass measuring 8.8 cm in ap dimension 9.2cm in width. tumor lesion suspected. renal u/s a 9.4 cm left posterior renal cortical lesion seen with prominent peripheral rim calcification. CT shows non specific mosaic opacity of the lungs with possible groundglass opacity in the lingula. Platelike atelectasis changes. A left renal mass was also found. ct chest/abd with contrast: no pulmonary masses or nodules. 9.6cm herorogenous cystic mass to lower pole left kidney. borderline enlarged mediastinal lymph nodes. ID: Meets SIRS criteria/early sepsis/possible pneumonia Presented from [facility] for shortness of breath, chronic cough, fatigue. chest pain. abd/pelvis ct with non specific mosaic opacity of the lungs with possible groundglass opacity in the lingula Leukocytosis improving 20>8.3. since admission. On Azactam per ID (day #3) Blood and urine cultures negative to date. ct chest/abd with contrast: no pulmonary masses or nodules. 9.6cm herorogenous cystic mass to lower pole left kidney. borderline enlarged mediastinal lymph nodes. Card: Chest pain/shortness of breath, resolved. For stress test Monday. Hypertension. BP improving. urine negative for cocaine, +for opiates (pt on metadone). on Coreq bid. diovan 160mg daily, amlodopine, hctz 25mg. Psyche: Polysubstance abuse, heroin abuse On Methadone taper, given last taper dose yesterday Renal/: Large Calcified left posterior renal mass noted on imaging ultrasound noted. for MRI, but patient unable to tolerate MRI today. Heme: Hemoconcentration. improving with IVF. daily cbc. fen ivf start low salt diet as tolerated monitor electrolytes prophy heparin tid Visit type - Emergency Visit Emergency Visit: Yes ED Registration Date: 07/20/18 Care time: The patient presented to the Emergency Department on the above date and was hospitalized for further evaluation of their emergent condition. - New Patient This patient is new to me today: No - Critical Care Critical Care patient: No - Discharge Referral Referred to [facility] Med P.C.: No
[2018-07-22] MEDS ORDERED: LIDOCAINE PATCH REMOVAL MC SCH (22:00)
[2018-07-22] MEDS ORDERED: MELATONIN 5 MG TABLETS PO SCH (22:00)
[2018-07-23] MEDS: ALBUTEROL SO4 2.5/IPRATROPIUM 0.5 INH SOL 3 ML VIAL.NEB. NEB SCH ×5 (00:09→15:47)
[2018-07-23] MEDS ORDERED: PT OWN MED DRAWER 7, Y5N ONE ×3 (00:10→06:05)
[2018-07-23] MEDS: KETOROLAC TROMETHAMINE 10 MG TABLET PO SCH ×3 (00:11→14:11)
[2018-07-23] MEDS: AZTREONAM 1 GM in DEXTROSE 5%-WATER - 50 ML IVPB SCH ×2 (01:14→14:21)
[2018-07-23] MEDS: HEPARIN NA (PORCINE) 5,000 UNITS/ML 1ML VIAL SQ SCH ×2 (06:07→13:46)
[2018-07-23] MEDS: SODIUM CHLORIDE 1,000 ML IV SCH ×3 (06:08→14:16)
[2018-07-23 07:00] LABS: BASO % 0.7 % (0-2.0); EOS % 1.3 % (0-4.5); HEMATOCRIT 50.7 % (35.4-49); HEMOGLOBIN 16.3 GM/dL (11.7-16.9); LYMPH % 29.2 % (8-40); MCH 27.4 pg (25.7-33.7); MCHC 32.2 g/dl (32.0-35.9); MEAN CELL VOLUME 85.3 fl (80-96); MEAN PLT VOLUME 7.4 fl (7.5-11.1); MONO % 14.6 % (3.8-10.2); NEUT % 54.2 % (42.8-82.8); PLATELET COUNT 161 K/MM3 (134-434); RBC 5.94 M/mm3 (4.00-5.60); RDW 14.9 % (11.9-15.9); WHITE BLOOD COUNT 6.7 K/mm3 (4.0-10.0)
[2018-07-23 07:17] LABS: ALBUMIN 3.2 g/dl (3.4-5.0); ALK PHOS 67 U/L (45-117); ANION GAP 10 MMOL/L (8-16); BILIRUBIN,TOTAL 1.4 mg/dL (0.2-1); BLOOD UREA NITROGEN 28 mg/dL (7-18); CALCIUM 8.8 mg/dL (8.5-10.1); CHLORIDE 101 mmol/L (98-107); CO2 26 mmol/L (21-32); CREATININE 1.4 mg/dL (0.55-1.3); GLUCOSE,RANDOM 86 mg/dL (74-106); MAGNESIUM 2.4 mg/dL (1.8-2.4); SGOT/AST 61 U/L (15-37); SGPT/ALT 42 U/L (13-61); SODIUM 137 mmol/L (136-145); TOT PROT 6.6 g/dl (6.4-8.2)
[2018-07-23] MEDS: VALSARTAN 160 MG TABLET (UD) PO SCH (09:30)
[2018-07-23] MEDS: CARVEDILOL 6.25 MG TABLET (FP) PO SCH (09:30)
[2018-07-23] MEDS: amLODIPine BESYLATE 10 MG TABLET (FP) PO SCH (09:30)
[2018-07-23] MEDS: PANTOPRAZOLE 40 MG TABLET (FP) PO SCH (09:30)
[2018-07-23] MEDS ORDERED: REGADENOSON 0.4 MG/5 ML PRE-FILLED SYRINGE IVPUSH ONE ×2 (12:00→12:03)
--- NOTE | 2018-07-23 12:21 | PN ---
Progress Note, Physician History of Present Illness: stable ct chest noted patient for perfusion scan wants to go home - Current Medication List Current Medications: Active Medications Acetaminophen (Tylenol -) 650 mg PO Q6H PRN PRN Reason: PAIN LEVEL 7 - 10 Albuterol/Ipratropium (Duoneb -) 1 amp NEB RQ4H [facility] Last Admin: 07/23/18 11:54 Dose: Not Given Amlodipine Besylate (Norvasc -) 10 mg PO DAILY [facility] Last Admin: 07/23/18 09:30 Dose: 10 mg Carvedilol (Coreg -) 6.25 mg PO BID [facility] Last Admin: 07/23/18 09:30 Dose: 6.25 mg Heparin Sodium (Porcine) (Heparin -) 5,000 unit SQ TID [facility] Last Admin: 07/23/18 06:07 Dose: 5,000 unit Hydrochlorothiazide (Hctz -) 25 mg PO DAILY [facility] Last Admin: 07/22/18 10:30 Dose: 25 mg Aztreonam 1 gm/ Dextrose 50 mls @ 100 mls/hr IVPB Q8H-IV [facility]; Protocol Last Admin: 07/23/18 01:14 Dose: 100 mls/hr Sodium Chloride (Normal Saline -) 1,000 mls @ 100 mls/hr IV ASDIR [facility] Last Admin: 07/23/18 06:08 Dose: 100 mls/hr Ketorolac Tromethamine (Toradol) 10 mg PO Q6HPO [facility] Stop: 07/27/18 16:14 Last Admin: 07/23/18 06:07 Dose: 10 mg Lidocaine (Lidoderm Patch -) 1 patch TP DAILY [facility] Last Admin: 07/22/18 17:11 Dose: 1 patch Melatonin (Melatonin) 10 mg PO HS [facility] Last Admin: 07/22/18 21:49 Dose: 10 mg Miscellaneous (Lidoderm Patch Removal) 1 each MC DAILY@2200 [facility] Last Admin: 07/22/18 21:49 Dose: 1 each Pantoprazole Sodium (Protonix -) 40 mg PO DAILY [facility] Last Admin: 07/23/18 09:30 Dose: 40 mg Valsartan (Diovan -) 160 mg PO DAILY [facility] Last Admin: 07/23/18 09:30 Dose: 160 mg - Objective Vital Signs: Vital Signs Temperature 97.1 F L 07/23/18 09:00 Pulse Rate 70 07/23/18 09:00 Respiratory Rate 18 07/23/18 09:00 Blood Pressure 142/90 07/23/18 09:00 O2 Sat by Pulse Oximetry (%) 98 07/23/18 09:00 Constitutional: Yes: No Distress, Calm Cardiovascular: Yes: Regular Rate and Rhythm Respiratory: Yes: Regular, CTA Bilaterally Gastrointestinal: Yes: Normal Bowel Sounds, Soft Musculoskeletal: Yes: WNL Extremities: Yes: WNL Neurological: Yes: Alert, Oriented Psychiatric: Yes: Alert, Oriented Labs: CBC, BMP 07/23/18 05:30 07/23/18 05:30 INR, PTT INR 1.20 (0.83-1.09) H 07/19/18 08:33 Assessment/Plan 63 year old male with a significant past medical history of hypertension, hepatitis c, bilateral lower extremity edema, polysubstance abuse, IVDU x 20 years ago, problem list bilateral lower ext edema polysubstance abuse IVDU Heroin use Renal mass sepsis leukocytosis patient looks comfortable, plan stable can go home on levaquin dose d/w the team for another couple of day will need regular follow up with cardio and urology
[2018-07-23] MEDS: HYDROCHLOROTHIAZIDE 25 MG TABLET (FP) PO SCH (13:05)
[2018-07-23] MEDS: LIDOCAINE 5% TOPICAL PATCH TP SCH (13:05)
--- NOTE | 2018-07-23 15:08 | PN ---
Progress Note (short form) - Note Progress Note: s: no chest pain, palps, dizzy, lightheadedness. wants to go home. Current Medications Acetaminophen (Tylenol -) 650 mg PO Q6H PRN PRN Reason: PAIN LEVEL 7 - 10 Albuterol/Ipratropium (Duoneb -) 1 amp NEB RQ4H [facility] Last Admin: 07/23/18 15:47 Dose: Not Given Amlodipine Besylate (Norvasc -) 10 mg PO DAILY [facility] Last Admin: 07/23/18 09:30 Dose: 10 mg Carvedilol (Coreg -) 6.25 mg PO BID [facility] Last Admin: 07/23/18 09:30 Dose: 6.25 mg Heparin Sodium (Porcine) (Heparin -) 5,000 unit SQ TID [facility] Last Admin: 07/23/18 13:46 Dose: 5,000 unit Hydrochlorothiazide (Hctz -) 25 mg PO DAILY [facility] Last Admin: 07/23/18 13:05 Dose: 25 mg Levofloxacin (Levaquin -) 250 mg PO DAILY@0600 [facility] Last Admin: 07/23/18 13:45 Dose: 250 mg Lidocaine (Lidoderm Patch -) 1 patch TP DAILY [facility] Last Admin: 07/23/18 13:05 Dose: 1 patch Melatonin (Melatonin) 10 mg PO HS [facility] Last Admin: 07/22/18 21:49 Dose: 10 mg Miscellaneous (Lidoderm Patch Removal) 1 each MC DAILY@2200 [facility] Last Admin: 07/22/18 21:49 Dose: 1 each Pantoprazole Sodium (Protonix -) 40 mg PO DAILY [facility] Last Admin: 07/23/18 09:30 Dose: 40 mg Valsartan (Diovan -) 160 mg PO DAILY [facility] Last Admin: 07/23/18 09:30 Dose: 160 mg - Objective Vital Signs: Vital Signs Period Temp Pulse Resp BP Sys/Scott Pulse Ox Last 24 Hr 97.1 F-98 F 58-78 18-20 125-164/79-90 95-98 Constitutional: Yes: Well Nourished, No Distress Eyes: Yes: WNL HENT: Yes: WNL Neck: Yes: WNL Cardiovascular: Yes: Regular Rate and Rhythm Respiratory: Yes: CTA Bilaterally Gastrointestinal: Yes: Normal Bowel Sounds Musculoskeletal: Yes: WNL Extremities: Yes: WNL Edema: Yes tele: sinus tachycardia echo 07/2018 tds, lv function moderately to severely reduced mibi 07/2018 small apical reversible defect c/w mild intensity ischemia, mod zone of inferolateral fixed defect c/w diaphragmatic attenuation, severely reduced LV function with global hypokinesis and EF 25% Assessment/Plan chest pain, LV systolic dysfunction: -per reports occurred in setting of detox from opiate abuse -trop 0.04 x 2-->0.08 is not c/w ACS -ECG with no ischemic changes vs baseline LVH assctd repol abnormalities -CXR x 2 without findings of CHF. LV hypokinesis is diffuse, ? new vs old. pt at risk for hypertensive CMP given his bp's here -denies sob, appears euvolemic--no lasix - stress test shows mild apical ischemia, EF 25% - would recommend cardiac cath, however patient declines to do this now. reasonable to defer given history of noncompliance and would need to be compliant with DAPT after procedure, discussed with patient. follow up in 1-2 weeks HTN: -bp improving -home meds (amlod 10, hctz 25) have been resumed here -On valsartan (also for low EF) -Increased carvedilol 6.25mg PO BID, conitnue leukocytosis: -afeb -nonspecific lung findings on CT scan -infectious w/u ongoing, per hospitalist renal mass: -suspected tumor radiographically -w/u per renal/
--- NOTE | 2018-07-23 15:22 | PN ---
Progress Note, Physician History of Present Illness: Pt seen and examined at bedside. He is awake and alert. He denies shortness of breath. - Current Medication List Current Medications: Active Medications Acetaminophen (Tylenol -) 650 mg PO Q6H PRN PRN Reason: PAIN LEVEL 7 - 10 Albuterol/Ipratropium (Duoneb -) 1 amp NEB RQ4H [facility] Last Admin: 07/23/18 11:54 Dose: Not Given Amlodipine Besylate (Norvasc -) 10 mg PO DAILY [facility] Last Admin: 07/23/18 09:30 Dose: 10 mg Carvedilol (Coreg -) 6.25 mg PO BID [facility] Last Admin: 07/23/18 09:30 Dose: 6.25 mg Heparin Sodium (Porcine) (Heparin -) 5,000 unit SQ TID [facility] Last Admin: 07/23/18 13:46 Dose: 5,000 unit Hydrochlorothiazide (Hctz -) 25 mg PO DAILY [facility] Last Admin: 07/23/18 13:05 Dose: 25 mg Sodium Chloride (Normal Saline -) 1,000 mls @ 100 mls/hr IV ASDIR [facility] Last Admin: 07/23/18 14:16 Dose: Not Given Ketorolac Tromethamine (Toradol) 10 mg PO Q6HPO [facility] Stop: 07/27/18 16:14 Last Admin: 07/23/18 14:11 Dose: 10 mg Levofloxacin (Levaquin -) 250 mg PO DAILY@0600 [facility] Last Admin: 07/23/18 13:45 Dose: 250 mg Lidocaine (Lidoderm Patch -) 1 patch TP DAILY [facility] Last Admin: 07/23/18 13:05 Dose: 1 patch Melatonin (Melatonin) 10 mg PO HS [facility] Last Admin: 07/22/18 21:49 Dose: 10 mg Miscellaneous (Lidoderm Patch Removal) 1 each MC DAILY@2200 [facility] Last Admin: 07/22/18 21:49 Dose: 1 each Pantoprazole Sodium (Protonix -) 40 mg PO DAILY [facility] Last Admin: 07/23/18 09:30 Dose: 40 mg Valsartan (Diovan -) 160 mg PO DAILY [facility] Last Admin: 07/23/18 09:30 Dose: 160 mg - Objective Vital Signs: Vital Signs Temperature 98.1 F 07/23/18 14:00 Pulse Rate 74 07/23/18 14:00 Respiratory Rate 18 07/23/18 09:00 Blood Pressure 137/88 07/23/18 14:00 O2 Sat by Pulse Oximetry (%) 98 07/23/18 09:00 Constitutional: Yes: Calm Eyes: Yes: Conjunctiva Clear HENT: Yes: Atraumatic Cardiovascular: Yes: S1, S2 Respiratory: Yes: CTA Bilaterally Gastrointestinal: Yes: Soft, Abdomen, Obese Genitourinary: Yes: WNL Musculoskeletal: Yes: WNL Edema: Yes Edema: LLE: Trace, RLE: Trace Integumentary: Yes: Venous Stasis Changes Neurological: Yes: Oriented Psychiatric: Yes: Oriented Labs: CBC, BMP 07/23/18 05:30 07/23/18 05:30 INR, PTT INR 1.20 (0.83-1.09) H 07/19/18 08:33 Problem List - Problems (1) CKD (chronic kidney disease) Code(s): N18.9 - CHRONIC KIDNEY DISEASE, UNSPECIFIED (2) Left renal mass Code(s): N28.89 - OTHER SPECIFIED DISORDERS OF KIDNEY AND URETER (3) Essential hypertension Code(s): I10 - ESSENTIAL (PRIMARY) HYPERTENSION Assessment/Plan Current Medications Generic Name Dose Route Start Last Admin Trade Name Freq PRN Reason Stop Dose Admin Acetaminophen 650 mg 07/22/18 16:03 Tylenol - PO Q6H PRN PAIN LEVEL 7 - 10 Albuterol/Ipratropium 1 amp 07/20/18 00:00 07/23/18 11:54 Duoneb - NEB Not Given RQ4H [facility] Amlodipine Besylate 10 mg 07/20/18 10:00 07/23/18 09:30 Norvasc - PO 10 mg DAILY [facility] Administration Carvedilol 6.25 mg 07/22/18 10:15 07/23/18 09:30 Coreg - PO 6.25 mg BID [facility] Administration Heparin Sodium (Porcine) 5,000 unit 07/20/18 06:00 07/23/18 13:46 Heparin - SQ 5,000 unit TID [facility] Administration Hydrochlorothiazide 25 mg 07/20/18 10:00 07/23/18 13:05 Hctz - PO 25 mg DAILY [facility] Administration Sodium Chloride 1,000 mls @ 100 mls/hr 07/20/18 14:11 07/23/18 14:16 Normal Saline - IV Not Given ASDIR [facility] Ketorolac Tromethamine 10 mg 07/22/18 16:15 07/23/18 14:11 Toradol PO 07/27/18 16:14 10 mg Q6HPO [facility] Administration Levofloxacin 250 mg 07/23/18 13:30 07/23/18 13:45 Levaquin - PO 250 mg DAILY@0600 [facility] Administration Lidocaine 1 patch 07/22/18 16:15 07/23/18 13:05 Lidoderm Patch - TP 1 patch DAILY [facility] Administration Melatonin 10 mg 07/22/18 22:00 07/22/18 21:49 Melatonin PO 10 mg HS [facility] Administration Miscellaneous 1 each 07/22/18 22:00 07/22/18 21:49 Lidoderm Patch Removal MC 1 each DAILY@2200 [facility] Administration Pantoprazole Sodium 40 mg 07/20/18 10:00 07/23/18 09:30 Protonix - PO 40 mg DAILY [facility] Administration Valsartan 160 mg 07/20/18 15:45 07/23/18 09:30 Diovan - PO 160 mg DAILY [facility] Administration Impression 1. CKD 2. renal mass 3. chest pain 4. HTN 5. obesity 6. heroin use Plan - will need renal workup for ckd - urology eval for renal mass - hold fluids - stop ketorolac - avoid nsaids as pt has history of nsaid use - will follow - counselled about drug use
--- NOTE | 2018-07-23 16:52 | DS ---
Physical Exam: SUBJECTIVE: Patient seen and examined at the bedside. ambulating hallways, in no acute distress. tolerating room air. stable. wants to go home and follow up outpatient. OBJECTIVE: Vital Signs Period Temp Pulse Resp BP Sys/Scott Pulse Ox Last 24 Hr 97.1 F-98.1 F 58-78 18-20 125-164/79-90 95-98 PHYSICAL EXAM GENERAL: Awake, alert, oriented x 3 HEAD: Normal with no signs of trauma, congestion noted EYES: Pupils equal, round and reactive to light EARS, NOSE, THROAT: clear drainage from nares, congested. NECK: Normal range of motion, supple without lymphadenopathy, JVD, or masses. LUNGS: diminished bilaterally HEART: Regular rate and rhythm ABDOMEN: Soft, distended MUSCULOSKELETAL: No CVA tenderness. UPPER EXTREMITIES: . No peripheral edema. LOWER EXTREMITIES: swelling, erythema, inflammation, severe bilateral lower ext edema w/induration, dry skin , hyperkeratotic plaques. No open areas. bilateral lower ext edema. negative for dvt NEUROLOGICAL: fatigue,calm, cooperative PSYCHIATRIC: Cooperative LABS Laboratory Results - last 24 hr 07/23/18 07/23/18 05:30 05:30 WBC 6.7 RBC 5.94 H Hgb 16.3 Hct 50.7 H MCV 85.3 MCH 27.4 MCHC 32.2 RDW 14.9 Plt Count 161 MPV 7.4 L Absolute Neuts (auto) 3.6 Neutrophils % 54.2 Lymphocytes % 29.2 Monocytes % 14.6 H Eosinophils % 1.3 Basophils % 0.7 Nucleated RBC % 0 Sodium 137 Potassium 4.0 Chloride 101 Carbon Dioxide 26 Anion Gap 10 BUN 28 H Creatinine 1.4 H Creat Clearance w eGFR 51.02 Random Glucose 86 Calcium 8.8 Magnesium 2.4 Total Bilirubin 1.4 H AST 61 H ALT 42 Alkaline Phosphatase 67 Total Protein 6.6 Albumin 3.2 L HOSPITAL COURSE: Date of Admission:07/20/18 Date of Discharge: 07/23/18 ASSESSMENT/PLAN: Patient is a 63 year old male with a significant past medical history of hypertension, hepatitis c, bilateral lower extremity edema, polysubstance abuse , IVDU x 20 years ago, none recent, referred to [facility] for detox of opiate use. Reports 4-5 bags via inhalation. Patient was at detox at [facility] but was sent to the ER after he c/o of crushing chest pain and became lethargic and diaphoretic. He was given Nitroglycerin 0.4mg x 2 sublingual but pain did not subside. An EKG at [facility] was reported to have t wave abnormality with possible inferolateral ischemia. While he was in the Ed he c/o of chest pain, nausea, vomiting. Abdomen CT shows non specific mosaic opacity of the lungs with possible groundglass opacity in the lingula. Platelike atelectasis changes. A left renal mass was also found. EKG shows new t wave inversion in inferior leads. Patient being admitted to rule out ACS. He is also noted to have an elevated WBC. septic workup initiated. Imaging: abd/ct/pelvis: kidneys with large peripherally calcified left posterior renal mass measuring 8.8 cm in ap dimension 9.2cm in width. tumor lesion suspected. renal u/s a 9.4 cm left posterior renal cortical lesion seen with prominent peripheral rim calcification. CT shows non specific mosaic opacity of the lungs with possible groundglass opacity in the lingula. Platelike atelectasis changes. A left renal mass was also found. ct chest/abd with contrast: no pulmonary masses or nodules. 9.6cm herorogenous cystic mass to lower pole left kidney. borderline enlarged mediastinal lymph nodes. ID: Meets SIRS criteria/early sepsis/possible pneumonia. resolved. Presented from [facility] for shortness of breath, chronic cough, fatigue. chest pain. abd/pelvis ct with non specific mosaic opacity of the lungs with possible groundglass opacity in the lingula Leukocytosis improving 20>8.3. since admission. stop IV antibiotics and send home with Levaquin 250mg daily x 5 more days Blood and urine cultures negative ct chest/abd with contrast: no pulmonary masses or nodules. 9.6cm herorogenous cystic mass to lower pole left kidney. borderline enlarged mediastinal lymph nodes. Card: Chest pain/shortness of breath, resolved. stress test findings discussed with patient, patient to follow up with Dr. Diaz outpatient for recommended stress test Hypertension. BP improved. urine negative for cocaine, +for opiates (pt on metadone). on Coreq bid. diovan 160mg daily, amlodopine, hctz 25mg to continue as an outpatient. medications called in. Psyche: Polysubstance abuse, heroin abuse On Methadone taper, completed taper. patient refusing to return to [facility]. Renal/: Large Calcified left posterior renal mass noted on imaging ultrasound noted. for MRI, but patient unable to tolerate. patient to follow up with urology outpatient. Heme: Hemoconcentration. improving with IVF. follow up outpatient. discharge home. Minutes to complete discharge: 60 Discharge Summary Reason For Visit: MASS OF LEFT KIDNEY, LEUKOCYTOSIS, CHEST PAIN Current Active Problems CKD (chronic kidney disease) (Acute) Chest pain in adult (Acute) Left renal mass (Acute) Leukocytosis, unspecified (Acute) Condition: Stable - Instructions Diet, Activity, Other Instructions: Mr. Armas You were admitted on 07/20/2018 for possible pneumonia and chest pain Here are our recommendations: Possible Pneumonia We treated you for pneumonia and will be sending you home on antibiotics orally of Levaquin 250mg once per day for 5 more days. Please continue the full course without skipping doses. Start tomorrow 07/24/2018 and finish on 2017. Chest pain/Hypertension. stress test shows mild apical ischemia, EF 25%. You recommend a cardiac cath. Please follow up with Dr. Diaz in 2 weeks. Hypertension: Note new medications: Medications: Coreq 6.25 twice per day at 8am and 8pm Diovan 160mg daily at 8am Amlodopoine 10mg daily (you have the combo pill at home, continue to take your home pill), take daily at 8am Hydroclorothiazide 25mg daily at 8am Psyche: Polysubstance abuse, heroin abuse - your completed your detox during hospitalization. Renal/: Large Calcified left posterior renal mass noted on imaging - Please see Dr. García. Please call his office for an appointment. I have referred you to a primary care doctor. Please call and make an appointment and bring your insurance information on the day of your visit. Please call me with any questions. Thank you for allowing us to care for you. [facility] MULTIPLEX OPERATOR [phone] [facility] @ [facility] Referrals: Deena Mora MD [Staff Physician] - 1 Week (new primary care doctor referral ) Gorge Starr MD [Staff Physician] - Rosa Durham MD [Staff Physician] - 2 Weeks Disposition: HOME - Home Medications Comprehensive Discharge Medication List: Ambulatory Orders Amlodipine/Atorvastatin [Amlodipine-Atorvast 10-10 mg] 10 mg PO DAILY 12/15/17 Amlodipine Besylate 10 mg PO DAILY 30 Days #30 tablet 12/19/17 Hydrochlorothiazide 25 mg PO DAILY 30 Days #30 tablet 12/19/17 This patient is new to me today: No Emergency Visit: Yes ED Registration Date: 07/20/18 Care time: The patient presented to the Emergency Department on the above date and was hospitalized for further evaluation of their emergent condition. Critical Care patient: No - Discharge Referral Referred to [facility] No Physician Referral: Deon Sotomayor MD ([facility])
[2018-07-23 19:03] VITALS: BP 154/78; PULSE 72; TEMP 97.8
== END 2018-07-23 19:09 | disposition home or self-care (01) | DRG 720 ==
LOC: JER 07:35 → JERBED 13:02 → J4W 07-20 15:00 → OBSVTOIN 07-20 15:33
PROVIDERS: ADMIT Internal Medicine; ATTEND Nurse Practitioner Family
DX: A41.9 Sepsis, unspecified organism (principal); R07.89 Other chest pain; I10 Essential (primary) hypertension; D72.829 Elevated white blood cell count, unspecified; R00.0 Tachycardia, unspecified; F17.210 Nicotine dependence, cigarettes, uncomplicated; B18.2 Chronic viral hepatitis C; F19.10 Other psychoactive substance abuse, uncomplicated; N28.89 Other specified disorders of kidney and ureter; F11.10 Opioid abuse, uncomplicated; N17.9 Acute kidney failure, unspecified; E66.01 Morbid (severe) obesity due to excess calories; Z68.41 Body mass index [BMI] 40.0-44.9, adult; J18.9 Pneumonia, unspecified organism; J98.11 Atelectasis
CPT/HCPCS: 36415; 71045-TC-FY; 71046-TC-FY; 71260-TC; 74176-TC; 74178-TC; 76775-TC; 78452-TC; 80053; 80307; 81003; 81015; 83036; 83605; 83690; 83735; 84484; 85025; 85027; 85610; 85730; 87040; 87086; 87804; 93017; 93306-TC; 93970-TC; 94640; 99284-25; A9502; G0378; J1644; J2785; J7030

== ENCOUNTER 2018-08-06 14:53 | Emergency (ER) | payer OTHER ==
--- NOTE | 2018-08-06 15:03 | PDOC ---
Rapid Medical Evaluation Chief Complaint: Respiratory Time Seen by Provider: 08/06/18 14:56 Medical Evaluation: Allergies Allergy/AdvReac Type Severity Reaction Status Date / Time bee venom protein (honey bee) Allergy Severe Swelling Verified 07/19/18 07:57 penicillin G Allergy Severe Swelling Verified 07/19/18 07:57 08/06/18 14:57 ]I have performed a brief in-person evaluation of this patient. The patient presents with a chief complaint of:2 weeks ago was admitted. / treated for pneumonia chest pain and body aches, Cont using intermittant Heroin snorting Pertinent physical exam findings: pale / I have ordered the following: CXR, Influenza swab The patient will proceed to the ED for further evaluation. 08/06/18 14:59 08/06/18 15:00 08/06/18 15:04
[2018-08-06 15:04] VITALS: PULSE 105; TEMP 97.9; BMI 42.8
--- NOTE | 2018-08-06 17:10 | PDOC ---
History of Present Illness - General Chief Complaint: Cold Symptoms Stated Complaint: Pain, Acute Time Seen by Provider: 08/06/18 14:56 History Source: Patient Exam Limitations: No Limitations - History of Present Illness Initial Comments: 08/06/18 17:03 Pt is a 63yo M with PMH of heroin use (last used yesterday, snorted 5 times), IV drug use (over 20 years ago), HTN, presenting to ED with complaints of generalized body aches, joint pains and R thigh pain. Pt says these symptoms have been going on for about a week or so after his recent discharge from the hospital for pneumonia. Pt says his R thigh hurts most after he has been standing for a while. He admits to subjective fevers at home and endorses slight headache, congestion and sinus pressure. Denies cough, chest pain, shortness of breath, abdominal pain, n/v/d, cough, urinary symptoms, numbness/ tingling. PMD: Meet PMH: see hpi Allergies: PCN Social: heroin use Past History - Past Medical History Allergies/Adverse Reactions: Allergies Allergy/AdvReac Type Severity Reaction Status Date / Time bee venom protein (honey bee) Allergy Severe Swelling Verified 08/06/18 15:04 penicillin G Allergy Severe Swelling Verified 08/06/18 15:04 Home Medications: Ambulatory Orders Amlodipine Besylate [Norvasc -] 10 mg PO DAILY #0 tablet 07/23/18 Carvedilol [Coreg -] 6.25 mg PO BID #60 tablet 07/23/18 Hydrochlorothiazide 25 mg PO DAILY 30 Days #30 tablet 07/23/18 Valsartan [Diovan] 160 mg PO DAILY #30 tablet 07/23/18 Anemia: No Asthma: No Cancer: No Cardiac Disorders: No CVA: No COPD: No CHF: No Diabetes: No GI Disorders: No Disorders: No HTN: Yes (On meds) Hypercholesterolemia: No Kidney Stones: No Liver Disease: Yes (HEPATITIS C) Seizures: No Thyroid Disease: No - Surgical History Abdominal Surgery: No Appendectomy: No Cardiac Surgery: No Cholecystectomy: No Lung Surgery: No Neurologic Surgery: No Orthopedic Surgery: No - Reproductive History Testicular Surgery: No - Suicide/Smoking/Psychosocial Hx Smoking History: Current every day smoker Have you smoked in the past 12 months: Yes Number of Cigarettes Smoked Daily: 10 Information on smoking cessation initiated: No 'Breaking Loose' booklet given: 12/15/17 Hx Alcohol Use: No Drug/Substance Use Hx: Yes (heroin) Substance Use Type: Heroin, Opiates Hx Substance Use Treatment: Yes ([facility] on 12/20) *Physical Exam - Vital Signs Last Vital Signs Temp Pulse Resp BP Pulse Ox 97.9 F 105 H 18 144/88 95 08/06/18 15:02 08/06/18 15:02 08/06/18 15:02 08/06/18 15:02 08/06/18 15:02 - Physical Exam General Appearance: Yes: Nourished, Appropriately Dressed. No: Apparent Distress HEENT: positive: EOMI, BONITA, TMs Normal, Pharynx Normal. negative: Scleral Icterus (R), Scleral Icterus (L), Pharyngeal Erythema, Tonsillar Exudate, Rhinorrhea, Sinus Tenderness, Hearing Grossly Normal Neck: positive: Trachea midline, Supple. negative: Lymphadenopathy (R), Lymphadenopathy (L) Respiratory/Chest: positive: Lungs Clear, Normal Breath Sounds. negative: Crackles, Rales, Rhonchi, Stridor, Wheezing Cardiovascular: positive: Regular Rhythm, Regular Rate, S1, S2. negative: Edema , JVD, Murmur Vascular Pulses: Carotid (R): 2+, Carotid (L): 2+ Gastrointestinal/Abdominal: positive: Normal Bowel Sounds, Soft, Protuberent. negative: Guarding, Rebound, Tenderness Musculoskeletal: positive: Other (R thigh not tender to palpation. ). negative : CVA Tenderness, Muscle Spasm Extremity: positive: Normal Capillary Refill. negative: Pedal Edema, Swelling, Calf Tenderness, Erythema Integumentary: positive: Dry, Other (dry skin overlying lower extremities bilaterally, healed circular lesions on arms, no track guerrero, no excoriation guerrero). negative: Erythema, Jaundice, Rash, Swelling Neurologic: positive: wrist hemmer II-XII NML intact, Fully Oriented, Alert, Normal Mood/ Affect, Normal Response, Motor Strength 5/5 Moderate Sedation - Procedure Monitoring Vital Signs: Procedure Monitoring Vital Signs Temperature 97.9 F 08/06/18 15:02 Pulse Rate 105 H 08/06/18 15:02 Respiratory Rate 18 08/06/18 15:02 Blood Pressure 144/88 08/06/18 15:02 O2 Sat by Pulse Oximetry (%) 95 08/06/18 15:02 ED Treatment Course - LABORATORY CBC & Chemistry Diagram: 08/06/18 17:35 08/06/18 17:35 Medical Decision Making - Medical Decision Making Pt is a 63yo M with PMH of heroin use (last used yesterday, snorted 5 times), IV drug use (over 20 years ago), HTN, presenting to ED with complaints of generalized body aches, joint pains and R thigh pain Vitals: HR 105 PE: dry skin, otherwise benign. thigh not tender to palpation DDx: meningitis, virus, cristin, nephritis labs ordered 08/06/18 18:19 Cr at baseline 1.4. All other labs wnl. UA showed 2+ blood with 4RBC. Pt does not have acute problem at this time that will require admission. Is taking medications as directed. Will set up pt with PMD to follow up with. Advised pt to go to rehab. Also given information for nephrology and urology. Advised pt to stay hydrated. Pt agreed to plan. *DC/Admit/Observation/Transfer Diagnosis at time of Disposition: Cold - Referrals Referrals: Deena Mora MD [Staff Physician] - Ernie Guzmán MD [Staff Physician] - Diane Patino MD [Staff Physician] - - Patient Instructions Additional Instructions: You were seen here today for body aches, back pain and joint pains. Your tests show that your kidney function is not where it is supposed to be. I highly recommend that you see a commercial floor covering installer as well as a urologist. You have an appointment with a primary care doctor: Yobany Ambriz at [facility] with Dr. Mora at 3: 30pm on Monday, August 08. Anesthesia Resident: Dr. Patino/ Dr. Peres Urologist: Dr. Guzmán I highly recommend that you check into going back to Detox You can take Tylenol for pain. Please come back to the emergency room if pain gets worse, you develop fever, you have worsening weakness or if any new concerning symptom develops. Thank you - Post Discharge Activity Forms/Work/School Notes: Back to Work
[2018-08-06 17:44] LABS: EOS % 2.3 % (0-4.5); HEMATOCRIT 41.1 % (35.4-49); HEMOGLOBIN 14.3 GM/dL (11.7-16.9); LYMPH % 31.8 % (8-40); MCH 29.3 pg (25.7-33.7); MCHC 34.8 g/dl (32.0-35.9); MEAN CELL VOLUME 84.1 fl (80-96); MEAN PLT VOLUME 7.5 fl (7.5-11.1); MONO % 10.7 % (3.8-10.2); NEUT % 54.2 % (42.8-82.8); PLATELET COUNT 144 K/MM3 (134-434); RBC 4.89 M/mm3 (4.00-5.60); RDW 15.5 % (11.9-15.9); WHITE BLOOD COUNT 5.9 K/mm3 (4.0-10.0)
[2018-08-06 17:46] LABS: URINE APPEARANCE SLCLOUDY; URINE BILIRUBIN NEGATIVE (<2.0 mg/dL); URINE COLOR LTYELLOW; URINE GLUCOSE (UA) NEGATIVE (NEGATIVE); URINE KETONE NEGATIVE (NEGATIVE); URINE LEUK ESTERASE TRACE (NEGATIVE); URINE NITRITE NEGATIVE (NEGATIVE); URINE PROTEIN NEGATIVE (NEGATIVE); URINE UROBILINOGEN NEGATIVE mg/dL (0.2-1.0)
[2018-08-06 17:53] LABS: EPI CELLS RARE /HPF (FEW); URINE BACTERIA RARE /hpf (NONE SEEN); URINE HYALINE CAST 17 /lpf; URINE MUCUS RARE
--- NOTE | 2018-08-06 18:01 | PDOC ---
Attending Attestation - HPI HPI: 08/06/18 18:02 The patient is a 63 year old male with a significant PMH of heroin abuse, IV drug use, and HTN who presents to the emergency department with leg weakness and joint days for the past 4 days. 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 Patient was recently discharged from this hospital for pneumonia. Patient has an abdominal CT done at that time which showed a 9.6cm cystic mass mid to lower pole of the left kidney, but has not yet followed up. Patient has not followed up with a PCP since discharge. The patient denies chest pain, shortness of breath, headache and dizziness. Denies fever, chills, nausea, vomit, diarrhea and constipation. Denies dysuria, frequency, urgency and hematuria. Allergies: NKA Past surgical history: None reported. Social history: No reported cigarette or alcohol use. - Physicial Exam PE: 08/06/18 18:03 ADULT EXAM GENERAL: Awake, alert, and fully oriented, in no acute distress HEAD: No signs of trauma EYES: PERRLA, EOMI, sclera anicteric, conjunctiva clear ENT: Auricles normal inspection, hearing grossly normal, nares patent, oropharynx clear without exudates. Moist mucosa NECK: Normal ROM, supple, no lymphadenopathy, JVD, or masses LUNGS: Breath sounds equal, clear to auscultation bilaterally. No wheezes, and no crackles HEART: Regular rate and rhythm, normal S1 and S2, no murmurs, rubs or gallops ABDOMEN: Soft, nontender, normoactive bowel sounds. No guarding, no rebound. No masses EXTREMITIES: Normal range of motion, no edema. No clubbing or cyanosis. No cords, erythema, or tenderness. (+) Chronic pitting edema and chronic venous stasis. NEUROLOGICAL: Cranial nerves II through XII grossly intact. Normal speech, normal gait SKIN: Warm, Dry, normal turgor, no rashes or lesions noted. <Laura Saul - Last Filed: 08/06/18 18:02> - Resident Resident Name: Marizol Baldwin - ED Attending Attestation I have performed the following: I have examined & evaluated the patient, The case was reviewed & discussed with the resident, I agree w/resident's findings & plan, Exceptions are as noted - Medical Decision Making 08/06/18 18:45 63-year-old male who was discharged several weeks ago after an extensive workup and found to have a large renal mass, presents with general malaise and lower leg pain. 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 Daniel Haywood, Dr. Starr ,Dr. Durham but has not made any appointments. 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 He has remote history IVDU He did not have prior medical care because of lack of insurance. He recently obtained medical insurance. While hospitalized several weeks ago for chest pain, he had an echo done and stress test done and multiple consults by specialists while hospitalized 08/06/18 18:56 -PMH significant for HTN,chronic venous stasis leg ulcers ,drug abuse and recently had CT SCAN that reveal a calcified left renal mass of 8.8cm x 9.2 cm labs reviewed and there is no significant change from his prior we made an appt for him this Monday at 3:30 at the [facility] [place] at [address] renal mass, muscle ache/CKI <Libia Simms - Last Filed: 08/06/18 19:12>
[2018-08-06 18:17] LABS: ALBUMIN 3.2 g/dl (3.4-5.0); ALK PHOS 81 U/L (45-117); ANION GAP 7 MMOL/L (8-16); BILIRUBIN,TOTAL 0.5 mg/dL (0.2-1); BLOOD UREA NITROGEN 20 mg/dL (7-18); CALCIUM 8.5 mg/dL (8.5-10.1); CHLORIDE 106 mmol/L (98-107); CO2 27 mmol/L (21-32); CREATININE 1.4 mg/dL (0.55-1.3); GLUCOSE,RANDOM 88 mg/dL (74-106); POTASSIUM 4.9 mmol/L (3.5-5.1); SGOT/AST 33 U/L (15-37); SGPT/ALT 26 U/L (13-61); SODIUM 140 mmol/L (136-145); TOT PROT 6.6 g/dl (6.4-8.2)
[2018-08-06 19:02] VITALS: BP 153/69
== END 2018-08-06 19:02 | disposition home or self-care (01) ==
LOC: JER 14:53
DX: J00 Acute nasopharyngitis [common cold] (principal); F11.90 Opioid use, unspecified, uncomplicated
CPT/HCPCS: 36415; 80053; 81003; 81015; 85025; 87086; 87804; 99282-25

== ENCOUNTER 2018-11-06 10:42 | Inpatient (IN) | payer OTHER ==
[2018-11-06 12:34] VITALS: BMI 43.1
--- NOTE | 2018-11-06 12:52 | HP ---
COWS - Scale Resting Pulse: 1= [place] 81-100 Sweatin=Flushed/Facial Moisture Restless Observation: 1= Difficult to Sit Still Pupil Size: 0= Normal to Room Light Bone or Joint Aches: 1= Mild Discomfort Runny Nose/ Eye Tearin= Nasal Congestion GI Upset > 30mins: 1= Stomach Cramp Tremor Observation: 2= Slight Tremor Visible Yawning Observation: 2= >3x During Session Anxiety or Irritability: 2=Irritable/Anxious Goose Flesh Skin: 0=Smooth Skin COWS Score: 13 CIWA Score - Admission Criteria [facility] Guidelines: Admission for Medically Managed Detox: Requires at least one of the followin. CIWA greater than 12 2. Seizures within the past 24 hours 3. Delirium tremens within the past 24 hours 4. Hallucinations within the past 24 hours 5. Acute intervention needed for co occurring medical disorder 6. Acute intervention needed for co occurring psychiatric disorder 7. Severe withdrawal that cannot be handled at a lower level of care (continued vomiting, continued diarrhea, abnormal vital signs) requiring intravenous medication and/or fluids 8. Admission ROS [facility] Chief Complaint: I am here to detox and get sober. I need help. Allergies/Adverse Reactions: Allergies Allergy/AdvReac Type Severity Reaction Status Date / Time bee venom protein (honey bee) Allergy Severe Swelling Verified 08/06/18 15:04 penicillin G Allergy Severe Swelling Verified 08/06/18 15:04 History of Present Illness: pt is a 63yrold male with a history of heroin dependence seeking detox for treatment. Pt was sober for 10yrs and recently relapsed due to chronic pain to both legs especially the right one. pt had a h/o chest pain but has resolved. pt has a h/o HTN, chronic back pain, chronic leg pain, chronic B/L knee pain Exam Limitations: No Limitations - Ebola screening Have you traveled outside of the country in the last 21 days: No Have you had contact with anyone from an Ebola affected area: No Have you been sick,other than usual withdrawal symptoms: No Do you have a fever: No - Review of Systems Constitutional: Chills, Night Sweats, Changes in sleep, Weight Stable EENT: reports: Nose Congestion Respiratory: reports: No Symptoms reported Cardiac: reports: No Symptoms Reported GI: reports: Diarrhea, Abdominal cramping : reports: No Symptoms Reported Musculoskeletal: reports: Back Pain, Joint Pain, Muscle Pain Integumentary: reports: Flushing, Sweating Neuro: reports: Tingling, Tremors Endocrine: reports: Flushing, Intolerance to Cold, Intolerance to Heat Hematology: reports: No Symptoms Reported Psychiatric: reports: Judgement Intact, Mood/Affect Appropiate, Orientated x3, Agitated, Anxious Other Systems: Reviewed and Negative Patient History - Patient Medical History Hx Anemia: No Hx Asthma: No Hx Chronic Obstructive Pulmonary Disease (COPD): No Hx Cancer: No Hx Cardiac Disorders: No Hx Congestive Heart Failure: No Hx Hypertension: Yes (On meds) Hx Hypercholesterolemia: No Hx Pacemaker: No HX Cerebrovascular Accident: No Hx Seizures: No Hx Diabetes: No Hx Gastrointestinal Disorders: No Hx Liver Disease: Yes (HEPATITIS C) Hx Genitourinary Disorders: No Hx Sexually Transmitted Disorders: No Hx Renal Disease (ESRD): No Hx Thyroid Disease: No Hx Human Immunodeficiency Virus (HIV): No (negative) Hx Hepatitis C: Yes Hx Depression: No Hx Suicide Attempt: No (denies) Hx Bipolar Disorder: No Hx Schizophrenia: No - Patient Surgical History Past Surgical History: No Hx Neurologic Surgery: No Hx Cataract Extraction: No Hx Cardiac Surgery: No Hx Lung Surgery: No Hx Breast Surgery: No Hx Breast Biopsy: No Hx Abdominal Surgery: No Hx Appendectomy: No Hx Cholecystectomy: No Hx Genitourinary Surgery: No Hx Section: No Hx Orthopedic Surgery: No Anesthesia Reaction: No - PPD History Previous Implant?: Yes Date: 12/17/17 Results: neg PPD to be Administered?: No - Reproductive History Patient is a Female of Child Bearing Age (11 -55 yrs old): No - Smoking Cessation Smoking history: Current every day smoker Have you smoked in the past 12 months: Yes Aproximately how many cigarettes per day: 10 Hx Chewing Tobacco Use: No Initiated information on smoking cessation: Yes 'Breaking Loose' booklet given: 11/06/18 - Substance & Tx. History Hx Alcohol Use: No Hx Substance Use: Yes Substance Use Type: Heroin Hx Substance Use Treatment: Yes (last detox 12/2018 [facility]) - Substances Abused Heroin Route: Inhalation Frequency: Daily Amount used: 5-7 bags Age of first use: 19 Date of Last Use: 11/05/18 Family Disease History - Family Disease History Family Disease History: Diabetes: Grandparent, Mother, Other: Father Admission Physical Exam [facility] - Vital Signs Vital Signs: Vital Signs - 24 hr 11/06/18 12:32 Temperature 97.6 F Pulse Rate 86 Respiratory 20 Rate Blood Pressure 138/80 - Physical General Appearance: Yes: Appropriately Dressed, Moderate Distress, Obese, Tremorous, Irritable, Sweating, Anxious HEENTM: Yes: Normal Voice, Rhinorrhea Respiratory: Yes: Lungs Clear, Normal Breath Sounds, No Respiratory Distress Neck: Yes: No masses,lesions,Nodules Breast: Yes: Within Normal Limits Cardiology: Yes: Regular Rhythm, Regular Rate, S1, S2 Abdominal: Yes: Normal Bowel Sounds, Non Tender, Soft Genitourinary: Yes: Within Normal Limits Back: Yes: Muscle Spasm Musculoskeletal: Yes: Back pain, Joint Stiffness, Muscle Pain Extremities: Yes: Normal Capillary Refill, Normal Inspection, Tremors Neurological: Yes: Fully Oriented, Alert, Normal Response Integumentary: Yes: Normal Color, Diaphoresis Lymphatic: Yes: Within Normal Limits - Diagnostic (1) Left renal mass Current Visit: No Status: Suspected (2) Opioid dependence with withdrawal Current Visit: Yes Status: Chronic (3) Sleep apnea Current Visit: Yes Status: Chronic Qualifiers: Sleep apnea type: unspecified type Qualified Code(s): G47.30 - Sleep apnea , unspecified (4) Substance induced mood disorder Current Visit: No Status: Acute (5) Chronic low back pain Current Visit: Yes Status: Chronic Qualifiers: Back pain laterality: unspecified Sciatica presence: unspecified whether sciatica present Qualified Code(s): M54.5 - Low back pain; G89.29 - Other chronic pain; G89.29 - Other chronic pain (6) Essential hypertension Current Visit: Yes Status: Chronic (7) Hepatitis C Current Visit: Yes Status: Chronic Qualifiers: Viral hepatitis chronicity: chronic Hepatic coma status: without hepatic coma Qualified Code(s): B18.2 - Chronic viral hepatitis C (8) Nicotine dependence Current Visit: Yes Status: Chronic Qualifiers: Nicotine product type: cigarettes Substance use status: uncomplicated Qualified Code(s): F17.210 - Nicotine dependence, cigarettes, uncomplicated (9) Obesity Current Visit: Yes Status: Chronic Qualifiers: Obesity type: due to excess calories Obesity classification: adult class 3 (BMI >= 40) Serious obesity comorbidity presence: without serious comorbidity Body mass index: BMI 45.0-49.9 Qualified Code(s): E66.01 - Morbid (severe) obesity due to excess calories; Z68.42 - Body mass index (BMI) 45.0-49.9, adult ; Z68.42 - Body mass index (BMI) 45.0-49.9, adult; Z68.42 - Body mass index (BMI ) 45.0-49.9, adult; Z68.42 - Body mass index (BMI) 45.0-49.9, adult Cleared for Admission [facility] - Detox or Rehab [facility] Level of Care: Medically Managed Detox Regimen/Protocol: Methadone [facility] Breath Alcohol Content Breath Alcohol Content: 0 Urine Drug Screen - Results Drug Screen Negative: No Urine Drug Screen Results: OPI-Opiates Inpatient Rehab Admission - Rehab Decision to Admit Inpatient rehab admission?: No
[2018-11-06] MEDS ORDERED: METHADONE HCL 10 MG TABLET (FOR DETOX USE ONLY) PO ONE ×2 (13:15→23:00)
[2018-11-06] MEDS ORDERED: ACETAMINOPHEN 325 MG TABLET (FP) PO PRN (13:15)
[2018-11-06] MEDS ORDERED: NICOTINE POLACRILEX 4 MG GUM BUC PRN (13:15)
[2018-11-06] MEDS ORDERED: MAGNESIUM HYDROX 2400MG/30ML ORAL SUSPENSION 30 ML CUP PO PRN (13:15)
[2018-11-06] MEDS ORDERED: MAGNESIUM CITRATE 300 ML BOTTLE PO PRN (13:15)
[2018-11-06] MEDS ORDERED: MENTHOL/PHENOL 1 EACH UD MM PRN (13:15)
[2018-11-06] MEDS ORDERED: P-EPHED 60MG/TRIPROLIDI 2.5MG TABLET PO PRN (13:15)
[2018-11-06] MEDS ORDERED: MAG HYDROX/AL HYDROX/SIMETH 30 ML UNIT-DOSE CUP PO PRN (13:15)
[2018-11-06] MEDS ORDERED: guaiFENesin/D-METHORPHAN HB 10 ML UNIT-DOSE CUPS PO PRN (13:15)
[2018-11-06] MEDS ORDERED: IBUPROFEN 400 MG TABLET (FP) PO PRN (13:15)
[2018-11-06] MEDS ORDERED: LOPERAMIDE HCL 2 MG CAPSULE PO PRN (13:15)
--- NOTE | 2018-11-06 16:14 | PN ---
S Progress Note Note: Vital Signs Temperature 97.6 F 11/06/18 12:32 Pulse Rate 86 11/06/18 12:32 Respiratory Rate 20 11/06/18 12:32 Blood Pressure 138/80 11/06/18 12:32 O2 Sat by Pulse Oximetry (%) patient evaluated on admission for white coloring of both lower extremities. Patient with edema +1 non-pitting both lower extremities, + small lesion on right LE, b/l hyperpigmentation , white scaling patches present on both lower extremities possible chronic stasis dermatitis low sodium diet elevate lower extremities bacitracin to lesion on right lower extremity eucerin cream as previously prescribed patient to follow primary care provider upon completing detox will continue to monitor
--- NOTE | 2018-11-06 16:14 | EKG ---
Test Reason : Blood Pressure : / mmHG Vent. Rate : 070 BPM Atrial Rate : 070 BPM P-R Int : 152 ms QRS Dur : 084 ms QT Int : 424 ms P-R-T Axes : 043 012 031 degrees QTc Int : 457 ms NORMAL SINUS RHYTHM MINIMAL VOLTAGE CRITERIA FOR LVH, MAY BE NORMAL VARIANT NONSPECIFIC T WAVE ABNORMALITY ABNORMAL ECG WHEN COMPARED WITH ECG OF 19-JUL-2018 07:46, T WAVE INVERSION NO LONGER EVIDENT IN INFERIOR LEADS Confirmed by MD Sukumar, Surinder ([id number]) on 11/06/2018 4:14:01 PM Referred By: Confirmed By:Surinder Patino MD
[2018-11-06] MEDS: diazePAM 5 MG TABLET PO PRN (17:27)
[2018-11-06] MEDS ORDERED: MELATONIN 5 MG TABLETS PO PRN (22:00)
[2018-11-06] MEDS: CARVEDILOL 6.25 MG TABLET (FP) PO SCH (22:48)
[2018-11-06] MEDS: MINERAL OIL/PETROLAT/WATER TOPICAL CREAM 113 GM JAR TP SCH (22:48)
[2018-11-06] MEDS: THIAMINE HCL 100 MG TABLET (FP) PO SCH (22:48)
[2018-11-07] MEDS: diazePAM 5 MG TABLET PO PRN ×3 (05:50→22:44)
[2018-11-07] MEDS: HYDROCHLOROTHIAZIDE 12.5 MG CAPSULE (FP) PO SCH ×2 (08:56→12:43)
[2018-11-07] MEDS ORDERED: METHADONE HCL 10 MG TABLET (FOR DETOX USE ONLY) PO ONE (10:00)
[2018-11-07 10:26] LABS: HEMATOCRIT 44.1 % (35.4-49); HEMOGLOBIN 14.8 GM/dL (11.7-16.9); MCH 28.5 pg (25.7-33.7); MCHC 33.7 g/dl (32.0-35.9); MEAN CELL VOLUME 84.8 fl (80-96); MEAN PLT VOLUME 8.3 fl (7.5-11.1); PLATELET COUNT 155 K/MM3 (134-434); RDW 15.4 % (11.9-15.9)
--- NOTE | 2018-11-07 10:57 | PN ---
BHS COWS - Scale Resting Pulse: 0= [place] 80 or Below Sweatin=Flushed/Facial Moisture Restless Observation: 1= Difficult to Sit Still Pupil Size: 0= Normal to Room Light Bone or Joint Aches: 2= Severe Diffuse Aches Runny Nose/ Eye Tearin= Runny Nose/Eyes GI Upset > 30mins: 3= Vomiting/Diarrhea Tremor Observation of Outstretched Hands: 2= Slight Tremor Visible Yawning Observation: 2= >3x During Session Anxiety or Irritability: 2=Irritable/Anxious Goose Flesh Skin: 3=Piloerection COWS Score: 19 BHS Progress Note (SOAP) Subjective: nausea vomiting body aches interrupted sleep agitation sweats shakes Objective: 11/07/18 10:54 Vital Signs Temperature 98.9 F 11/07/18 09:23 Pulse Rate 62 11/07/18 09:23 Respiratory Rate 20 11/07/18 09:23 Blood Pressure 172/98 H 11/07/18 09:23 O2 Sat by Pulse Oximetry (%) Laboratory Tests 11/07/18 06:00 WBC 6.0 RBC 5.20 Hgb 14.8 Hct 44.1 MCV 84.8 MCH 28.5 MCHC 33.7 RDW 15.4 Plt Count 155 MPV 8.3 D rest of labs pending aaox3 ambulating no acute distress excessive dry/flaky skin to lower legs and elbows appears like plaque psoriasis Assessment: 11/07/18 11:02 withdrawal sx Plan: continue detox increase fluids lidex ointment ordered to use with eucerin ointment dior IM x one
[2018-11-07] MEDS ORDERED: TRIMETHOBENZAMIDE HCL 200MG/2ML INJ IM ONE (11:03)
[2018-11-07 12:05] LABS: ALBUMIN 3.8 g/dl (3.4-5.0); ALK PHOS 95 U/L (45-117); ANION GAP 8 MMOL/L (8-16); BILIRUBIN,TOTAL 0.7 mg/dL (0.2-1); BLOOD UREA NITROGEN 19 mg/dL (7-18); CALCIUM 9.1 mg/dL (8.5-10.1); CHLORIDE 104 mmol/L (98-107); CO2 29 mmol/L (21-32); CREATININE 1.3 mg/dL (0.55-1.3); GLUCOSE,RANDOM 107 mg/dL (74-106); POTASSIUM 4.5 mmol/L (3.5-5.1); SGOT/AST 31 U/L (15-37); SGPT/ALT 28 U/L (13-61); SODIUM 141 mmol/L (136-145); TOT PROT 7.4 g/dl (6.4-8.2)
[2018-11-07] MEDS: CARVEDILOL 6.25 MG TABLET (FP) PO SCH ×2 (12:43→22:42)
[2018-11-07] MEDS: amLODIPine BESYLATE 10 MG TABLET (FP) PO SCH (12:43)
[2018-11-07] MEDS: BACITRACIN 0.9 GM PACKET TP SCH (12:43)
[2018-11-07] MEDS: NICOTINE 21 MG/24 HOURS TOPICAL PATCH TD SCH (12:43)
[2018-11-07] MEDS: PRENATAL VITAMINS W/ FOLIC ACID TABLET (FP) PO SCH (12:44)
[2018-11-07] MEDS: FLUOCINONIDE 0.05% TOP OINT (60 GM TUBE) TP SCH ×3 (14:34→22:43)
[2018-11-07] MEDS: MINERAL OIL/PETROLAT/WATER TOPICAL CREAM 113 GM JAR TP SCH ×2 (16:03→22:44)
[2018-11-07] MEDS: hydrOXYzine PAMOATE 50 MG CAPSULE (FP) PO PRN (17:42)
[2018-11-07] MEDS: THIAMINE HCL 100 MG TABLET (FP) PO SCH (22:43)
[2018-11-08] MEDS ORDERED: METHADONE HCL 5 MG TABLET (FOR DETOX USE ONLY) PO ONE (10:00)
[2018-11-08] MEDS: MINERAL OIL/PETROLAT/WATER TOPICAL CREAM 113 GM JAR TP SCH ×2 (10:22→22:59)
[2018-11-08] MEDS: CARVEDILOL 6.25 MG TABLET (FP) PO SCH ×2 (10:22→23:00)
[2018-11-08] MEDS: amLODIPine BESYLATE 10 MG TABLET (FP) PO SCH (10:22)
[2018-11-08] MEDS: PRENATAL VITAMINS W/ FOLIC ACID TABLET (FP) PO SCH (10:22)
[2018-11-08] MEDS: BACITRACIN 0.9 GM PACKET TP SCH (10:22)
[2018-11-08] MEDS: HYDROCHLOROTHIAZIDE 12.5 MG CAPSULE (FP) PO SCH (10:22)
[2018-11-08] MEDS: NICOTINE 21 MG/24 HOURS TOPICAL PATCH TD SCH (10:23)
--- NOTE | 2018-11-08 10:58 | PN ---
BHS COWS - Scale Resting Pulse: 0= CT 80 or Below Sweatin= Chills/Flushing Restless Observation: 3= Extraneous Movement Pupil Size: 1= Pupils >than Normal Bone or Joint Aches: 2= Severe Diffuse Aches Runny Nose/ Eye Tearin= Nasal Congestion GI Upset > 30mins: 2= Nausea/Diarrhea Tremor Observation of Outstretched Hands: 2= Slight Tremor Visible Yawning Observation: 1= 1-2x During Session Anxiety or Irritability: 2=Irritable/Anxious Goose Flesh Skin: 0=Smooth Skin COWS Score: 15 BHS Progress Note (SOAP) Subjective: alert,pain in the body and back,interrupted sleep,pain in the body and back Objective: 11/08/18 11:02 Vital Signs Temperature 97.7 F 11/08/18 09:59 Pulse Rate 79 11/08/18 09:59 Respiratory Rate 20 11/08/18 09:59 Blood Pressure 183/93 H 11/08/18 09:59 O2 Sat by Pulse Oximetry (%) 11/08/18 11:02 Laboratory Last Values WBC 6.0 K/mm3 (4.0-10.0) 11/07/18 06:00 RBC 5.20 M/mm3 (4.00-5.60) 11/07/18 06:00 Hgb 14.8 GM/dL (11.7-16.9) 11/07/18 06:00 Hct 44.1 % (35.4-49) 11/07/18 06:00 MCV 84.8 fl (80-96) 11/07/18 06:00 MCH 28.5 pg (25.7-33.7) 11/07/18 06:00 MCHC 33.7 g/dl (32.0-35.9) 11/07/18 06:00 RDW 15.4 % (11.9-15.9) 11/07/18 06:00 Plt Count 155 K/MM3 (134-434) 11/07/18 06:00 MPV 8.3 fl (7.5-11.1) D 11/07/18 06:00 Sodium 141 mmol/L (136-145) 11/07/18 06:00 Potassium 4.5 mmol/L (3.5-5.1) 11/07/18 06:00 Chloride 104 mmol/L (98-107) 11/07/18 06:00 Carbon Dioxide 29 mmol/L (21-32) 11/07/18 06:00 Anion Gap 8 MMOL/L (8-16) 11/07/18 06:00 BUN 19 mg/dL (7-18) H 11/07/18 06:00 Creatinine 1.3 mg/dL (0.55-1.3) 11/07/18 06:00 Creat Clearance w eGFR 55.58 (>60) 11/07/18 06:00 Random Glucose 107 mg/dL (74-106) H 11/07/18 06:00 Calcium 9.1 mg/dL (8.5-10.1) 11/07/18 06:00 Total Bilirubin 0.7 mg/dL (0.2-1) 11/07/18 06:00 AST 31 U/L (15-37) 11/07/18 06:00 ALT 28 U/L (13-61) 11/07/18 06:00 Alkaline Phosphatase 95 U/L (45-117) 11/07/18 06:00 Total Protein 7.4 g/dl (6.4-8.2) 11/07/18 06:00 Albumin 3.8 g/dl (3.4-5.0) 11/07/18 06:00 RPR Titer Nonreactive (NONREACTIVE) 11/07/18 09:00 HIV 1&2 Antibody Screen Negative 11/07/18 06:00 HIV P24 Antigen Negative 11/07/18 06:00 Assessment: 11/08/18 11:02 withdrawal symptom Plan: continue detox
[2018-11-08] MEDS ORDERED: CYCLOBENZAPRINE HCL 10 MG TABLET (FP) PO PRN (11:04)
[2018-11-08] MEDS: FLUOCINONIDE 0.05% TOP OINT (60 GM TUBE) TP SCH ×4 (11:29→22:58)
--- NOTE | 2018-11-08 14:10 | PN ---
S Progress Note Note: 2pm V/S Vital Signs Temperature 98.4 F 11/08/18 13:53 Pulse Rate 87 11/08/18 13:53 Respiratory Rate 20 11/08/18 13:53 Blood Pressure 183/98 H 11/08/18 13:53 O2 Sat by Pulse Oximetry (%) lisinopril 40mg x one ordered continue to monitor BP
[2018-11-08] MEDS ORDERED: LISINOPRIL 20 MG TABLET (FP) PO ONE (14:15)
--- NOTE | 2018-11-08 18:10 | PN ---
S Progress Note Note: Vital Signs - 24 hr 11/07/18 11/07/18 11/07/18 18:24 18:36 21:35 Temperature 96.9 F L 96 F L Pulse Rate 77 89 80 Respiratory 18 18 18 Rate Blood Pressure 195/108 H 117/63 151/87 11/08/18 11/08/18 11/08/18 07:05 09:59 13:53 Temperature 97.9 F 97.7 F 98.4 F Pulse Rate 79 79 87 Respiratory 20 20 20 Rate Blood Pressure 183/88 H 183/93 H 183/98 H 11/08/18 17:34 Temperature 97.9 F Pulse Rate 84 Respiratory 20 Rate Blood Pressure 175/71 H Patient c/o of fatigue attributes to withdrawal sx BP elevated, as per patient BP increases when going through withdrawal Patient denies headaches, chest pain, SOB, paresthesia, c/o of cough x 4 days Patient Aox3, no acute distress EENT WNL Lungs clear, + rhonchi s1 s2 present no JVD skin intact, no edema elevated BP secondary to withdrawal increase PO fluids one time order of HCTZ 25 mg ordered continue to monitor check BP in an hour
[2018-11-08] MEDS ORDERED: HYDROCHLOROTHIAZIDE 25 MG TABLET (FP) PO ONE (18:30)
[2018-11-08] MEDS: THIAMINE HCL 100 MG TABLET (FP) PO SCH (22:58)
[2018-11-09] MEDS: hydrOXYzine PAMOATE 50 MG CAPSULE (FP) PO PRN (00:27)
[2018-11-09] MEDS: diazePAM 5 MG TABLET PO PRN (07:08)
--- NOTE | 2018-11-09 09:07 | PN ---
[facility] Progress Note Note: pt appears very sickly, lethargic looking, pt states he feels so weak no appetite. pt was assessed, lethargic looking, pt could open his eyes unless he forced them open. pt agreed to go to our main hospital for evaluation. report given to Dr. [place] at [facility]
[2018-11-09] MEDS ORDERED: METHADONE HCL 5 MG TABLET (FOR DETOX USE ONLY) PO ONE (10:00)
[2018-11-09] MEDS: CARVEDILOL 6.25 MG TABLET (FP) PO SCH ×2 (11:38→23:52)
[2018-11-09] MEDS: BACITRACIN 0.9 GM PACKET TP SCH (11:38)
[2018-11-09] MEDS: MINERAL OIL/PETROLAT/WATER TOPICAL CREAM 113 GM JAR TP SCH ×2 (11:38→23:52)
[2018-11-09] MEDS: amLODIPine BESYLATE 10 MG TABLET (FP) PO SCH (11:39)
[2018-11-09] MEDS: HYDROCHLOROTHIAZIDE 12.5 MG CAPSULE (FP) PO SCH (11:39)
[2018-11-09] MEDS: PRENATAL VITAMINS W/ FOLIC ACID TABLET (FP) PO SCH (11:39)
[2018-11-09] MEDS: NICOTINE 21 MG/24 HOURS TOPICAL PATCH TD SCH (11:39)
[2018-11-09] MEDS: FLUOCINONIDE 0.05% TOP OINT (60 GM TUBE) TP SCH ×4 (11:39→23:56)
[2018-11-09] MEDS: THIAMINE HCL 100 MG TABLET (FP) PO SCH (23:52)
--- NOTE | 2018-11-10 09:48 | PN ---
[facility] Progress Note (SOAP) Subjective: pt states he is feeling much better and is going to work. Objective: 11/10/18 09:47 Vital Signs Temperature 97.3 F L 11/10/18 06:00 Pulse Rate 76 11/10/18 06:00 Respiratory Rate 20 11/10/18 06:00 Blood Pressure 139/77 11/10/18 06:00 O2 Sat by Pulse Oximetry (%) [id number] ambulating no acute distress Assessment: 11/10/18 09:48 no s/s of withdrawal sx Plan: d/c today
[2018-11-10] MEDS ORDERED: METHADONE HCL 10 MG TABLET (FOR DETOX USE ONLY) PO ONE (10:00)
[2018-11-10] MEDS: MINERAL OIL/PETROLAT/WATER TOPICAL CREAM 113 GM JAR TP SCH (10:17)
[2018-11-10] MEDS: PRENATAL VITAMINS W/ FOLIC ACID TABLET (FP) PO SCH (10:17)
[2018-11-10] MEDS: CARVEDILOL 6.25 MG TABLET (FP) PO SCH (10:17)
[2018-11-10] MEDS: HYDROCHLOROTHIAZIDE 12.5 MG CAPSULE (FP) PO SCH (10:17)
[2018-11-10] MEDS: amLODIPine BESYLATE 10 MG TABLET (FP) PO SCH (10:17)
[2018-11-10] MEDS: BACITRACIN 0.9 GM PACKET TP SCH (10:17)
[2018-11-10 11:06] VITALS: BP 137/85; PULSE 83; TEMP 97.7
--- NOTE | 2018-11-10 11:25 | DS ---
[facility] Detox Discharge Summary Admission Date: 11/06/18 Discharge Date: 11/10/18 - History Present History: Opioid Dependence - Physical Exam Results Vital Signs: Vital Signs Temperature 97.7 F 11/10/18 11:06 Pulse Rate 83 11/10/18 11:06 Respiratory Rate 18 11/10/18 11:06 Blood Pressure 137/85 11/10/18 11:06 O2 Sat by Pulse Oximetry (%) - Treatment Hospital Course: Detox Protocol Followed, Detoxed Safely, Responded well, Discharged Condition Good, Rehab Referral Accepted - Medication Discharge Medications: Ambulatory Orders Amlodipine Besylate [Norvasc -] 10 mg PO DAILY #0 tablet 07/23/18 Carvedilol [Coreg -] 6.25 mg PO BID #60 tablet 07/23/18 Hydrochlorothiazide [Hctz -] 12.5 mg PO DAILY 11/06/18 - Diagnosis (1) Left renal mass Current Visit: No Status: Suspected (2) Opioid dependence with withdrawal Current Visit: Yes Status: Chronic (3) Sleep apnea Current Visit: Yes Status: Chronic Qualifiers: Sleep apnea type: unspecified type Qualified Code(s): G47.30 - Sleep apnea , unspecified (4) Substance induced mood disorder Current Visit: No Status: Acute (5) Chronic low back pain Current Visit: Yes Status: Chronic Qualifiers: Back pain laterality: unspecified Sciatica presence: unspecified whether sciatica present Qualified Code(s): M54.5 - Low back pain; G89.29 - Other chronic pain; G89.29 - Other chronic pain (6) Essential hypertension Current Visit: Yes Status: Chronic (7) Hepatitis C Current Visit: Yes Status: Chronic Qualifiers: Viral hepatitis chronicity: chronic Hepatic coma status: without hepatic coma Qualified Code(s): B18.2 - Chronic viral hepatitis C (8) Nicotine dependence Current Visit: Yes Status: Chronic Qualifiers: Nicotine product type: cigarettes Substance use status: uncomplicated Qualified Code(s): F17.210 - Nicotine dependence, cigarettes, uncomplicated (9) Obesity Current Visit: Yes Status: Chronic Qualifiers: Obesity type: due to excess calories Obesity classification: adult class 3 (BMI >= 40) Serious obesity comorbidity presence: without serious comorbidity Body mass index: BMI 45.0-49.9 Qualified Code(s): E66.01 - Morbid (severe) obesity due to excess calories; Z68.42 - Body mass index (BMI) 45.0-49.9, adult ; Z68.42 - Body mass index (BMI) 45.0-49.9, adult; Z68.42 - Body mass index (BMI ) 45.0-49.9, adult; Z68.42 - Body mass index (BMI) 45.0-49.9, adult - AMA Did Patient Leave Against Medical Advice: No (going home/ going to work)
[2018-11-11] MEDS ORDERED: METHADONE HCL 5 MG TABLET (FOR DETOX USE ONLY) PO ONE (06:00)
== END 2018-11-10 11:38 | disposition home or self-care (01) | DRG 773 ==
LOC: YASAS 10:42 → Y6N 15:11
PROVIDERS: ADMIT Surgery; ATTEND Surgery
PROC: HZ2ZZZZ Detoxification Services for Substance Abuse Treatment (ICD-10-PCS; principal; 2018-11-06)
DX: F11.23 Opioid dependence with withdrawal (principal); F17.210 Nicotine dependence, cigarettes, uncomplicated; F19.24 Other psychoactive substance dependence with psychoactive substance-induced mood disorder; I10 Essential (primary) hypertension; G47.30 Sleep apnea, unspecified; B18.2 Chronic viral hepatitis C; R60.0 Localized edema; E66.01 Morbid (severe) obesity due to excess calories; Z68.41 Body mass index [BMI] 40.0-44.9, adult; N28.89 Other specified disorders of kidney and ureter
CPT/HCPCS: 36415; 80053; 85027; 86593; 87389; 93005; 93010

== ENCOUNTER → 2018-11-09 | Emergency (ER) | payer OTHER ==
[~2018-11-09] MED LIST: MAGNESIUM OXIDE 400 MG TABLET (FP) ONE; MAGNESIUM OXIDE 400 MG TABLET (FP) PO ONE; ONDANSETRON 4 MG/2 ML VIAL IVPUSH ONE; ONDANSETRON 4 MG/2 ML VIAL ONE; POTASSIUM CHLORIDE TABS 20 MEQ TABLET.ER (FP) PO ONE; SODIUM CHLORIDE 1,000 ML IV STA
[2018-11-09 11:02] VITALS: BP 168/98; PULSE 92; TEMP 97.8; BMI 42.8
--- NOTE | 2018-11-09 12:06 | PDOC ---
History of Present Illness - General Chief Complaint: Weakness Stated Complaint: HTN Time Seen by Provider: 11/09/18 12:04 - History of Present Illness Initial Comments: 11/09/18 12:04 63 yo male with PMH Heroin dependence, HTN presents from [facility] with complaint of weakness for 3 days. He states he presented to Detox for heroin use on monday and was treated with a Methadone taper which he completed yesterday (). He states that he has been feeling lightheaded on exertion and feeling like he was going to pass out when ambulating the bathroom. He also endorses nausea and vomiting since yesterday which he states is nonbloody. He states he has felt dehydrated the last few days despite drinking water. He describes the feeling as similar to one time when he went on a trip and ran out of heroin. He states this is how his withdrawals normally present, however this has been worse than in the past. Past History - Past Medical History Allergies/Adverse Reactions: Allergies Allergy/AdvReac Type Severity Reaction Status Date / Time bee venom protein (honey bee) Allergy Severe Swelling Verified 11/06/18 13:40 penicillin G Allergy Severe Swelling Verified 11/06/18 13:40 Home Medications: Ambulatory Orders Amlodipine Besylate [Norvasc -] 10 mg PO DAILY #0 tablet 07/23/18 Carvedilol [Coreg -] 6.25 mg PO BID #60 tablet 07/23/18 Hydrochlorothiazide [Hctz -] 12.5 mg PO DAILY 11/06/18 Anemia: No Asthma: No Cancer: No Cardiac Disorders: No CVA: No COPD: No CHF: No Diabetes: No GI Disorders: No Disorders: No HTN: Yes Hypercholesterolemia: No Kidney Stones: No Liver Disease: Yes (HEPATITIS C) Seizures: No Thyroid Disease: No Other medical history: SUBSTANCE ABUSE - Surgical History Abdominal Surgery: No Appendectomy: No Cardiac Surgery: No Cholecystectomy: No Lung Surgery: No Neurologic Surgery: No Orthopedic Surgery: No - Reproductive History Testicular Surgery: No - Immunization History Immunization Up to Date: (UNKNOWN) - Suicide/Smoking/Psychosocial Hx Smoking History: Current every day smoker Have you smoked in the past 12 months: Yes Number of Cigarettes Smoked Daily: 10 Information on smoking cessation initiated: No 'Breaking Loose' booklet given: 11/06/18 Hx Alcohol Use: No Drug/Substance Use Hx: Yes (HEROIN) Substance Use Type: Heroin Hx Substance Use Treatment: Yes Review of Systems - Review of Systems Constitutional: No: Chills, Fever HEENTM: No: Blurred Vision Respiratory: No: Cough, Shortness of Breath Cardiac (ROS): No: Chest Pain, Irregular Heart Rate ABD/GI: Yes: Diarrhea, Nausea, Vomiting. No: Abdominal Distended : No: Burning, Dysuria, Discharge Musculoskeletal: No: Back Pain, Joint Pain *Physical Exam - Vital Signs Last Vital Signs Temp Pulse Resp BP Pulse Ox 97.8 F 92 H 18 168/98 98 11/09/18 10:59 11/09/18 10:59 11/09/18 10:59 11/09/18 10:59 11/09/18 10:59 - Physical Exam Comments: 11/09/18 12:05 GEN: Oriented time 3, somewhat lethargic which patient attributes to not sleeping the last few days. HEENT: Dry mucus membranes NECK: Supple HEART: RRR, no murmurs noted LUNGS: CTA b/l ABDOMEN: normoactive bowel sounds, soft, nontender EXTREMITIES: 1+ LE edema, chronic venous stasis changes noted. diffuse scarring and tract guerrero throughout UEs b/l Moderate Sedation - Procedure Monitoring Vital Signs: Procedure Monitoring Vital Signs Temperature 97.8 F 11/09/18 10:59 Pulse Rate 92 H 11/09/18 10:59 Respiratory Rate 18 11/09/18 10:59 Blood Pressure 168/98 11/09/18 10:59 O2 Sat by Pulse Oximetry (%) 98 11/09/18 10:59 ED Treatment Course - LABORATORY CBC & Chemistry Diagram: 11/09/18 14:30 11/09/18 14:30 Medical Decision Making - Medical Decision Making 11/09/18 12:34 63 yo male presents from [facility] (heroin) for complaint of lightheadedness, nausea, vomiting. Pt endorses he completed methadone taper yesterday. CBC, CMP, Mg, Trop, EKG pending. Pt is difficult IV stick/blood draw with extensive history of heroin injection, labs yet to be drawn at this time. 11/09/18 12:44 Upon further review of chart, pt still on methadone taper, did not receive dose this AM, however did receive 10mg Valium a couple hours prior to transfer to hospital. 11/09/18 14:18 Pt with complaint of nausea at this time. will give SL Zofran pending EKG and QTc okay 11/09/18 17:24 CBC noted with significantly concentrated H/H compared with labs from 2 days ago. 1L fluid bolus given slowly with frequent reassessment considering past stress test with EF 25%. Pt states he is feeling better than when he initially presented. Will assess ambulatory status and likely d/c return to [facility]. CMP notable for hypokalemia and hypomagnesemia, will replete orally prior to d/c
--- NOTE | 2018-11-09 14:13 | PDOC ---
Attending Attestation - Resident Resident Name: Tapan Denny - ED Attending Attestation I have performed the following: I have examined & evaluated the patient, The case was reviewed & discussed with the resident, I agree w/resident's findings & plan, Exceptions are as noted - HPI HPI: 11/09/18 14:10 The patient is a 63 year old male, with a significant PMH of heroin dependence and hypertension, who presents to the emergency department from [facility] with 3 days of generalized weakness. The patient states he went to [facility] for heroin detox beginning on Monday and completed a Methadone taper yesterday ( ). The patient endorses lightheadedness stating he feels like he may pass out while walking. The patient also endorses nausea and vomiting (non bloody non bilious) since yesterday and feeling dehydrated. The patient reports his symptom are similar to past withdrawals but states this time is worse than usual. The patient denies chest pain, shortness of breath, headache. Denies focal weakness/numnbess Denies fever, chills, diarrhea and constipation. Denies abd pain Denies dysuria, frequency, urgency and hematuria. Allergies: bee venom protein (honey bee), penicillin G - Physicial Exam PE: 11/09/18 14:10 agree with resident exam - Medical Decision Making 11/09/18 14:11 63yo M hx HTN and heroin abuse presents to the ED with generalized weakness, N/V /D. Vitals with elevated BP, otherwise wnl. Exam wnl. DDx includes but not limited to dehydration 2/2 withdrawal vs electrolyte abnormality vs anemia. Plan -labs -IVF -EKG -reassess 11/09/18 17:31 EKG unchanged Pt gently hydrated with 1L NS (last EF 25%) Feels much better Hgb 19, consistent with hemoconcentration. Likely dehydrated 2/2 insensible loses from heroin withdrawal K 3.0 Plan to replete K, reassess pt If continues to improve, can be discharged back to [facility]. <Mateus Collins - Last Filed: 11/09/18 17:33> Heart Score/ECG Review #1 11/09/18 14:17 Twelve-lead EKG was performed and reviewed by me. Normal sinus rhythm, rate 92. Normal axis. No ST elevations. No sig changes compared to EKG from 11/06/18 <Mateus Collins - Last Filed: 11/09/18 17:33> Attestations - Attestations 11/09/18 14:25 Documentation prepared by Turner Orr, acting as medical collections representative for Mateus Collins MD. <Turner Orr - Last Filed: 11/09/18 14:25>
[2018-11-09 14:47] LABS: BASO % 0.8 % (0-2.0); EOS % 0.3 % (0-4.5); HEMATOCRIT 56.1 % (35.4-49); HEMOGLOBIN 19.5 GM/dL (11.7-16.9); LYMPH % 26.3 % (8-40); MCH 28.2 pg (25.7-33.7); MCHC 34.7 g/dl (32.0-35.9); MEAN CELL VOLUME 81.1 fl (80-96); MEAN PLT VOLUME 7.7 fl (7.5-11.1); MONO % 14.4 % (3.8-10.2); NEUT % 58.2 % (42.8-82.8); PLATELET COUNT 210 K/MM3 (134-434); RBC 6.91 M/mm3 (4.00-5.60); RDW 15.7 % (11.9-15.9); WHITE BLOOD COUNT 9.9 K/mm3 (4.0-10.0)
[2018-11-09 17:02] LABS: ALBUMIN 3.4 g/dl (3.4-5.0); ALK PHOS 80 U/L (45-117); ANION GAP 10 MMOL/L (8-16); BILIRUBIN,TOTAL 1.4 mg/dL (0.2-1); BLOOD UREA NITROGEN 20 mg/dL (7-18); CALCIUM 8.3 mg/dL (8.5-10.1); CHLORIDE 97 mmol/L (98-107); CO2 28 mmol/L (21-32); CREATININE 1.3 mg/dL (0.55-1.3); GLUCOSE,RANDOM 84 mg/dL (74-106); MAGNESIUM 1.8 mg/dL (1.8-2.4); SGOT/AST 20 U/L (15-37); SGPT/ALT 21 U/L (13-61); SODIUM 135 mmol/L (136-145); TOT PROT 6.9 g/dl (6.4-8.2)
--- NOTE | 2018-11-11 11:56 | EKG ---
Test Reason : Blood Pressure : / mmHG Vent. Rate : 092 BPM Atrial Rate : 092 BPM P-R Int : 130 ms QRS Dur : 088 ms QT Int : 362 ms P-R-T Axes : 034 -07 121 degrees QTc Int : 447 ms NORMAL SINUS RHYTHM LEFT VENTRICULAR HYPERTROPHY WITH REPOLARIZATION ABNORMALITY ABNORMAL ECG WHEN COMPARED WITH ECG OF 06-NOV-2018 16:02, NO SIGNIFICANT CHANGE WAS FOUND Confirmed by NICCI WARREN, CHARLEE ([id number]) on 11/11/2018 11:56:37 AM Referred By: Confirmed By:CHARLEE GRAJEDA MD
== END | disposition home or self-care (01) ==
LOC: JER 10:51
PROC: 3E033GC Introduction of Other Therapeutic Substance into Peripheral Vein, Percutaneous Approach (ICD-10-PCS; principal; 2018-11-09)
PROC: 3E0337Z Introduction of Electrolytic and Water Balance Substance into Peripheral Vein, Percutaneous Approach (ICD-10-PCS; 2018-11-09)
DX: F17.210 Nicotine dependence, cigarettes, uncomplicated (principal); I10 Essential (primary) hypertension; B19.20 Unspecified viral hepatitis C without hepatic coma
CPT/HCPCS: 36415; 80053; 83735; 84484; 85025; 93005; 93010; 96361; 96374; 99282-25; J7030